=== PATIENT | female | born 1930 ===

== ENCOUNTER 2016-09-04 16:43 | Observation (INO) | payer MEDICARE, MEDICAID ==
[2016-09-04 16:44] VITALS: BMI 22.4
--- NOTE | 2016-09-04 16:49 | C.PDOC ---
History Of Present Illness Patient is a 85 y/o female that presents to the ED for evaluation of swelling to bilateral legs that began today. Patient states her lower extremities felt heavy, and were swollen upon waking up from a nap around 13:00 today. Patient also reports feeling lightheaded when looking down. Also reports an episode of sharp chest pain that lasted for few seconds, which resolved spontaneously. Otherwise, denies any shortness of breath, cough, fever, chills, or any other associated symptoms at this time. Time Seen by Provider: 09/04/16 16:45 Chief Complaint (Nursing): Lower Extremity Problem/Injury History Per: Patient History/Exam Limitations: no limitations Onset/Duration Of Symptoms: Hrs Current Symptoms Are (Timing): Still Present Recent travel outside of the [place]: No Additional History Per: Patient Past Medical History Reviewed: Historical Data, Nursing Documentation, Vital Signs Vital Signs: Last Vital Signs Temp 98.1 F 09/05/16 23:23 Pulse 61 09/05/16 23:23 Resp 20 09/05/16 23:23 BP 130/63 09/05/16 23:23 Pulse Ox 94 L 09/05/16 23:23 - Medical History PMH: Arthritis, Asthma, CHF, Deep Vein Thrombosis (rt leg), HTN, Hypercholesterolemia, Osteoporosis Denies: Chronic Kidney Disease Surgical History: Appendectomy, Cholecystectomy - [facility] Procedures OCCUPATIONAL THERAPY (12/19/13) PHYSICAL THERAPY NEC (12/19/13) RECREATIONAL THERAPY (12/19/13) Family History: States: Unknown Family Hx - Social History Hx Tobacco Use: No Hx Alcohol Use: No Hx Substance Use: No - Immunization History Hx Tetanus Toxoid Vaccination: No Hx Influenza Vaccination: No Hx Pneumococcal Vaccination: No Review Of Systems Except As Marked, All Systems Reviewed And Found Negative. Constitutional: Negative for: Fever, Chills Cardiovascular: Negative for: Chest Pain, Palpitations Respiratory: Negative for: Cough, Shortness of Breath Gastrointestinal: Negative for: Nausea, Vomiting, Abdominal Pain Skin: Positive for: Other (lower extremity swelling ). Negative for: Rash Neurological: Negative for: Weakness, Numbness, Headache, Dizziness Physical Exam - Physical Exam Appears: Non-toxic, No Acute Distress Skin: Normal Color, Warm, Dry Head: Atraumatic, Normacephalic Eye(s): bilateral: Normal Inspection, EOMI Neck: Normal ROM, Supple Chest: Symmetrical, No Tenderness Cardiovascular: Rhythm Regular, No Murmur Respiratory: Normal Breath Sounds, No Accessory Muscle Use, No Rales, No Rhonchi , No Wheezing Gastrointestinal/Abdominal: Soft, No Tenderness Extremity: Normal ROM, Pedal Edema (2+ pitting edema up to cain bilaterally), No Deformity Pulses: Left Dorsalis Pedis: Normal, Right Dorsalis Pedis: Normal Neurological/Psych: Oriented x3, Normal Speech, Normal Cognition, Normal Motor, Normal Sensation, Other (no focal deficits) ED Course And Treatment - Laboratory Results Result Diagrams: 09/04/16 17:12 09/04/16 17:12 ECG: Interpreted By Me, Viewed By Me ECG Rhythm: Sinus Rhythm, L BBB ECG Interpretation: No Acute Changes Interpretation Of ECG: No STEMI Rate From EC (bpm) O2 Sat by Pulse Oximetry: 100 (on RA) Pulse Ox Interpretation: Normal Progress Note: EKG, CXR, blood work, urinalysis ordered and reviewed. Pt was given Aspirin in the ER. Disposition - Disposition Disposition: HOSPITALIZED Disposition Time: 19:13 Condition: STABLE - Clinical Impression Clinical Impression: CHF exacerbation - Scribe Statement The provider has reviewed the documentation as recorded by the Scribe Román Kwan All medical record entries made by the Shankaribmary were at my direction and personally dictated by me. I have reviewed the chart and agree that the record accurately reflects my personal performance of the history, physical exam, medical decision making, and the department course for this patient. I have also personally directed, reviewed, and agree with the discharge instructions and disposition.
[2016-09-04 17:15] LABS: BASO % 0.7 % (0.0-2.0); EOS # 0.2 K/uL (0.0-0.7); EOS % 3.6 % (0.0-4.0); LYMPH # 1.3 K/uL (1.0-4.3); LYMPH % 31.6 % (20.0-40.0); MEAN CORPUSCULAR HEMOGLOBIN 30.7 pg (27.0-31.0); MEAN CORPUSCULAR HGB CONC 32.5 g/dL (33.0-37.0); MEAN PLATELET VOLUME 8.8 fL (7.2-11.7); MONO # 0.5 K/uL (0.0-0.8); MONO % 11.7 % (0.0-10.0); NEUT # 2.2 K/uL (1.8-7.0); NEUT % 52.4 % (50.0-75.0); RBC 4.24 Mil/uL (3.80-5.20); RED CELL DISTRIBUTION WIDTH 13.2 % (11.5-14.5); WHITE BLOOD COUNT 4.2 K/uL (4.8-10.8)
[2016-09-04 17:21] LABS: MEAN CELL VOLUME 94.3 fL (81.0-99.0)
[2016-09-04 17:26] LABS: ALBUMIN 3.8 g/dL (3.5-5.0)
[2016-09-04 17:29] LABS: ALB/GLOB RATIO 1.4 (1.0-2.1); AST/SGOT 31 U/L (14-36); GFR AFRICAN-AMERICAN 43; GFR NON-AFRICAN AMERICAN 36
[2016-09-04 17:30] LABS: ALT/SGPT 42 U/L (9-52); BLOOD UREA NITROGEN 36 mg/dL (7-17); CALCIUM 10.8 mg/dl (8.6-10.4)
[2016-09-04 17:39] LABS: B-TYPE NATRIURETIC PEPTIDE 3350 pg/mL (0-900)
[2016-09-04 19:21] LABS: SQUAMOUS EPITHIAL 1 /hpf (0-5); URINE BILIRUBIN NEGATIVE (NEGATIVE); URINE BLOOD NEGATIVE (NEGATIVE); URINE CLARITY Clear (Clear); URINE COLOR Straw (YELLOW); URINE GLUCOSE (UA) NORMAL (Normal); URINE LEUKOCYTE ESTERASE NEG Leu/uL (Negative); URINE NITRATE NEGATIVE (NEGATIVE); URINE PROTEIN NEGATIVE (NEGATIVE); URINE UROBILINOGEN NORMAL mg/dL (0.2-1.0)
[2016-09-05 02:48] LABS: CK-MB 1.21 ng/mL (0.0-3.38)
--- NOTE | 2016-09-05 08:39 | RAD ---
HISTORY: Lower extremity swelling COMPARISON: 02/09/2016 FINDINGS: LUNGS: Mild venous congestion. Right hilar prominence. Patchy increased markings at the left mid to lower lung zone. Biapical pleural thickening with upper lobe granulomatous changes. PLEURA: As above. CARDIOVASCULAR: Cardiomegaly. Calcification at the aortic knob. OSSEOUS STRUCTURES: Degenerative changes in the spine and shoulders. VISUALIZED UPPER ABDOMEN: Normal. OTHER FINDINGS: None. IMPRESSION: Mild venous congestion. Right hilar prominence. Patchy increased markings at the left mid to lower lung zone. Biapical pleural thickening with upper lobe granulomatous changes.
[2016-09-05 11:57] LABS: CK-MB 1.5 ng/mL (0.0-3.38)
[2016-09-05 17:29] LABS: CK-MB 1.59 ng/mL (0.0-3.38)
[2016-09-05 23:26] VITALS: RESP 20
[2016-09-06 08:54] LABS: CALCIUM 10.7 mg/dl (8.6-10.4)
--- NOTE | 2016-09-06 11:40 | VASCLAB ---
PROCEDURE: Lower Extremity Venous Duplex Exam. HISTORY: leg swelling and calf pain PRIORS: None. TECHNIQUE: Bilateral common femoral, femoral, popliteal and posterior tibial, peroneal and great saphenous veins were evaluated. Flow was assessed with color Doppler, compressibility, assessment of phasic flow and augmentation response. Report prepared by Renaldo Morillo, DOREEN, RVT FINDINGS: RIGHT: 1. Common Femoral Vein: 1.1. Compressibility - Fully compressible: Thrombus - None : Flow - Phasic: Augmentation -Normal: Reflux - None. 2. Femoral Vein: 2.1. Compressibility - Fully compressible: Thrombus - None : Flow - Phasic: Augmentation -Normal: Reflux - None. 3. Popliteal Vein: 3.1. Compressibility - Fully compressible: Thrombus - None : Flow - Phasic: Augmentation -Normal: Reflux - None. 4. Posterior Tibial Vein: 4.1. Compressibility - Fully compressible: Thrombus - None: Flow - Phasic: Augmentation -Normal: Reflux - None. 5. Peroneal Vein: 5.1. Compressibility - Fully compressible: Thrombus - None: Flow - Phasic: Augmentation -Normal: Reflux - None. 6. Great Saphenous Vein: 6.1. Compressibility - Fully compressible: Thrombus - None: Flow - Phasic: Augmentation - Normal: Reflux - None. LEFT: 1. Common Femoral Vein: 1.1. Compressibility - Fully compressible: Thrombus - None: Flow - Phasic: Augmentation -Normal: Reflux - None. 2. Femoral Vein: 2.1. Compressibility - Fully compressible: Thrombus - None: Flow - Phasic: Augmentation -Normal: Reflux - None. 3. Popliteal Vein: 3.1. Compressibility - Fully compressible: Thrombus - None : Flow - Phasic: Augmentation -Normal: Reflux - None. 4. Posterior Tibial Vein: 4.1. Compressibility - Fully compressible: Thrombus - None: Flow - Phasic: Augmentation -Normal: Reflux - None. 5. Peroneal Vein: 5.1. Compressibility - Fully compressible: Thrombus - None: Flow - Phasic: Augmentation -Normal: Reflux - None. 6. Great Saphenous Vein: 6.1. Compressibility - Fully compressible: Thrombus - None: Flow - Phasic: Augmentation - Normal: Reflux - None. OTHER FINDINGS: Right: Intima wall thickening noted in the right superficial femoral and popliteal veins.. Left: None significant. IMPRESSION: Right: No evidence of deep or superficial vein thrombosis of the right lower extremity. Normal valve function noted of the right side. Left: No evidence of deep or superficial vein thrombosis of the left lower extremity. Normal valve function noted of the left side.
--- NOTE | 2016-09-06 12:59 | CP.PCM.HP ---
History of Present Illness - History of Present Illness History of Present Illness: 85 years female with H/O of multiple medical problems , presented to ER wit symptoms of bilateral lower Ext. swelling and uncontrolled HTN. Review of Systems - Constitutional Constitutional: Fatigue, Weakness - Cardiovascular Cardiovascular: Dyspnea on Exertion, Edema, Leg Edema - Respiratory Respiratory: Dyspnea Past Patient History - Infectious Disease Hx of Infectious Diseases: None - Tetanus Immunizations Tetanus Immunization: Unknown - Past Medical History & Family History Past Medical History?: Yes - Past Social History Smoking Status: Never Smoked - CARDIAC Hx Congestive Heart Failure: Yes Hx Hypercholesterolemia: Yes Hx Hypertension: Yes - PULMONARY Hx Asthma: Yes - NEUROLOGICAL Hx Neurological Disorder: No Hx Syncope: Yes - HEENT Hx HEENT Problems: Yes Other/Comment: +eyeglasses - RENAL Hx Chronic Kidney Disease: No - ENDOCRINE/METABOLIC Hx Endocrine Disorders: No - HEMATOLOGICAL/ONCOLOGICAL Hx Blood Disorders: No Other/Comment: DVT right leg - INTEGUMENTARY Hx Dermatological Problems: No - MUSCULOSKELETAL/RHEUMATOLOGICAL Hx Arthritis: Yes - GASTROINTESTINAL Hx Gastrointestinal Disorders: No - GENITOURINARY/GYNECOLOGICAL Hx Genitourinary Disorders: No Hx Incontinence: Yes - PSYCHIATRIC Hx Substance Use: No - SURGICAL HISTORY Hx Appendectomy: Yes Hx Cholecystectomy: Yes - ANESTHESIA Hx Anesthesia: Yes Hx Anesthesia Reactions: No Meds Allergies/Adverse Reactions: Allergies Allergy/AdvReac Type Severity Reaction Status Date / Time No Known Allergies Allergy Verified 05/15/15 10:31 Physical Exam - Constitutional Appears: Non-toxic - Head Exam Head Exam: ATRAUMATIC, NORMOCEPHALIC - Eye Exam Eye Exam: EOMI, PERRL Pupil Exam: PERRL - ENT Exam ENT Exam: Mucous Membranes Moist - Respiratory Exam Respiratory Exam: Clear to Auscultation Bilateral, NORMAL BREATHING PATTERN - Cardiovascular Exam Cardiovascular Exam: REGULAR RHYTHM - GI/Abdominal Exam GI & Abdominal Exam: Normal Bowel Sounds - Extremities Exam Extremities exam: Positive for: full ROM, pedal edema - Neurological Exam Neurological exam: Alert Results - Vital Signs Recent Vital Signs: Last Vital Signs Temp 97.4 F L 09/06/16 09:48 Pulse 65 09/06/16 10:45 Resp 20 09/06/16 09:48 BP 143/74 09/06/16 09:49 Pulse Ox 95 09/06/16 09:48 - Labs Result Diagrams: 09/04/16 17:12 09/06/16 08:08 Labs: Laboratory Results - last 24 hr 09/05/16 09/06/16 16:48 08:08 Sodium 138 Potassium 3.6 Chloride 100 Carbon Dioxide 30 Anion Gap 11 BUN 40 H Creatinine 1.4 H Est GFR ( Amer) 43 Est GFR (Non-Af Amer) 36 Random Glucose 110 H Calcium 10.7 H Total Creatine Kinase 82 CK-MB (Mass) 1.59 Troponin I, Quant 0.0250 Assessment & Plan - Assessment and Plan (Free Text) Assessment: Pulmonary hypertension with Rt. sided heart failure. Uncontrolled systemic HTN Osteoarthritis. Plan: Lasix. Antihypertensive medications. Continue home medications. - Date & Time Date: 09/05/16 Time: 10:00
--- NOTE | 2016-09-06 14:47 | CP.PCM.PN ---
Subjective - Date & Time of Evaluation Date of Evaluation: 09/06/16 Time of Evaluation: 14:00 - Subjective Subjective: Pt seen today, states feels better, denies any sob, chest pain , palpitation, dizziness, N/V/D LE swelling improved No overnight events reported by RN Objective - Vital Signs/Intake and Output Vital Signs (last 24 hours): Temp Pulse Resp BP Pulse Ox 97.4 F L 65 20 143/74 95 09/06/16 09:48 09/06/16 10:45 09/06/16 09:48 09/06/16 09:49 09/06/16 09:48 Intake and Output: 09/06/16 09/06/16 06:59 18:59 Intake Total 500 Balance 500 - Medications Medications: Current Medications Aspirin (Aspirin Chewable) 81 mg PO DAILY [facility] Last Admin: 09/06/16 09:49 Dose: 81 mg Bisoprolol Fumarate (Zebeta) 5 mg PO DAILY [facility] Last Admin: 09/06/16 09:49 Dose: 5 mg Escitalopram Oxalate (Lexapro) 10 mg PO DAILY [facility] Last Admin: 09/06/16 09:49 Dose: 10 mg Famotidine (Pepcid) 20 mg PO DAILY [facility] Last Admin: 09/06/16 09:49 Dose: 20 mg Ferrous Sulfate (Feosol) 325 mg PO BID [facility] Last Admin: 09/06/16 09:49 Dose: 325 mg Furosemide (Lasix) 40 mg IVP DAILY [facility] Last Admin: 09/06/16 09:49 Dose: 40 mg Heparin Sodium (Porcine) (Heparin) 5,000 units SC Q12 [facility] Last Admin: 09/06/16 09:49 Dose: 5,000 units Hydralazine HCl (Apresoline) 25 mg PO Q8 [facility] Last Admin: 09/06/16 13:07 Dose: 25 mg Levetiracetam (Keppra) 500 mg PO BID [facility] Last Admin: 09/06/16 09:49 Dose: 500 mg Losartan Potassium (Cozaar) 25 mg PO DAILY [facility] Last Admin: 09/06/16 09:49 Dose: 25 mg Oxybutynin Chloride (Ditropan Tab) 5 mg PO BID [facility] Last Admin: 09/06/16 09:49 Dose: 5 mg Rosuvastatin Calcium (Crestor) 10 mg PO HS [facility] Last Admin: 09/05/16 21:35 Dose: 10 mg - Labs Labs: 09/06/16 08:08 - Constitutional Appears: Well, No Acute Distress - Respiratory Exam Respiratory Exam: Clear to Ausculation Bilateral, NORMAL BREATHING PATTERN - Cardiovascular Exam Cardiovascular Exam: REGULAR RHYTHM, +S1, +S2 - Extremities Exam Extremities Exam: Full ROM, Pedal Edema - Neurological Exam Neurological Exam: Alert, Awake, Oriented x3 Assessment and Plan - Assessment and Plan (Free Text) Assessment: A/P 85 yr old female admitted for LE swelling and sob DUPLEX LE - negative for DVT LE edema improved after lasix seen by Dr. Medeiros and cleared for discharge home today
[2016-09-06 17:25] VITALS: BP 107/57; PULSE 80; TEMP 97.9; O2SAT 94
--- NOTE | 2016-09-07 08:46 | PCM.HF ---
Heart Failure Core Measure - Heart Failure Ejection Fraction: 40 % or Greater WAYNE Inhibitor Prescribed: Yes Beta-Shiloh Prescribed: Bisoprolol Angiotensin II Receptor Shiloh Prescribed: No Contraindication/Reason for not providing: ef>45 Contraindication/Reason for not providing: no hx of afib Aldosterone Antagonist Prescribed: No Contraindication/Reason for not providing: ef>45 Hydralazine Nitrate Prescribed: Yes Implantable Cardioverter Defibrillator Therapy: No Contraindication/Reason for not providing: ef>45 Cardiac Resynchronization Therapy Prescribed: No Contraindication/Reason for not providing: ef>45 - Follow up Will be discharged to: Home Follow Up Date (must be within 7 days from discharge): 09/09/16 Follow Up Time: 09:00
--- NOTE | 2016-09-07 11:11 | CARD ---
APPROVED REPORT EKG Measurement Heart [id number] FL [id number] [id number] <Conclusion> Normal sinus rhythm Left bundle branch block Abnormal ECG
== END 2016-09-06 17:33 | disposition home or self-care (01) ==
LOC: C.ER 16:43 → C.9E 19:13 → C.5T 09-05 10:26
PROVIDERS: ADMIT Internal Medicine; ATTEND Internal Medicine
DX: I11.0 Hypertensive heart disease with heart failure (principal); I50.9 Heart failure, unspecified; E78.00 Pure hypercholesterolemia, unspecified; J45.909 Unspecified asthma, uncomplicated
CPT/HCPCS: 36415; 71010; 80048; 80053; 81001; 83880; 84484; 85025; 93970; 96374; 97162; 97530; 99285; G0378; G8978; G8979; J0360; J1644; J1940

== ENCOUNTER 2016-09-14 14:34 | Inpatient (IN) | payer MEDICARE, OTHER ==
[2016-09-14 14:46] VITALS: BMI 27.5
--- NOTE | 2016-09-14 15:01 | C.PDOC ---
History Of Present Illness <Eneida Ferris - Last Filed: 09/14/16 18:55> <AmarjitSara vargastamy - Last Filed: 09/14/16 21:17> LIMITED DUE TO DEMENTIA 85-year-old Luz VELA PRESENTS TO THE EMERGENCY DEPARTMENT WITH COMPLAINTS OF AMS @ 1330. BRASS POLISHER STATES PT DIFFICULT TO AROUSE. NOW @ BASELINE MS. PT W NO COMPLAINTS NARD NONTOXIC LUNGS NEG ABD NEG ATRAUM NO EDEMA WARM DRY (BarringtonEneida) History/Exam Limitations: clinical condition (AMS) <Eneida Ferris - Last Filed: 09/14/16 18:55> <ChantelSaratamy - Last Filed: 09/14/16 21:17> Time Seen by Provider: 09/14/16 14:58 Chief Complaint (Nursing): Medical Clearance Past Medical History Reviewed: Historical Data, Nursing Documentation, Vital Signs - Medical History PMH: Arthritis, Asthma, CHF, Deep Vein Thrombosis (rt leg), HTN, Hypercholesterolemia, Hyperlipidemia, Osteoporosis, Chronic Kidney Disease, Seizures Surgical History: Appendectomy, Cholecystectomy Family History: States: No Known Family Hx - Social History Hx Tobacco Use: No Hx Alcohol Use: No Hx Substance Use: No - Immunization History Hx Tetanus Toxoid Vaccination: No Hx Influenza Vaccination: No Hx Pneumococcal Vaccination: No <Eneida Ferris - Last Filed: 09/14/16 18:55> Review Of Systems Review Of Systems: ROS cannot be obtained secondary to pt's inabilty to answer questions. <Eneida Ferris - Last Filed: 09/14/16 18:55> Physical Exam - Physical Exam Appears: Non-toxic, No Acute Distress Head: Atraumatic, Normacephalic Eye(s): bilateral: Normal Inspection, PERRL Nose: Normal Oral Mucosa: Moist Lips: Normal Appearing Neck: Normal ROM Cardiovascular: Rhythm Regular, No Murmur Respiratory: Normal Breath Sounds, No Accessory Muscle Use Extremity: Normal ROM <Eneida Ferris - Last Filed: 09/14/16 18:55> ED Course And Treatment - Laboratory Results Result Diagrams: 09/14/16 16:50 09/14/16 16:50 O2 Sat by Pulse Oximetry: 99 <Eneida Ferris - Last Filed: 09/14/16 18:55> - Laboratory Results Result Diagrams: 09/14/16 16:50 09/14/16 16:50 Pulse Ox Interpretation: Normal <Sara Goldentamy - Last Filed: 09/14/16 21:17> Progress - Data Reviewed Data Reviewed: Lab, Diagnostic imaging, EKG, Old records <Eneida eFrris - Last Filed: 09/14/16 18:55> ED OBSERVATION Date of observation admission: 09/14/16 Time of observation admission: 14:45 <Eneida Ferris - Last Filed: 09/14/16 18:55> <ChantelSaratamy - Last Filed: 09/14/16 21:17> - Observation admission statement Patient is being placed in observation because:: AMS (Eneida Ferris) - Goals of Observation Goals of observation are:: NO ACUTE FINDINGS (Eneida Ferris) - Progress Note Progress Note: 09/14/16 17:00 exam unch. ua, ct pending 09/14/16 18:38 FAMILY @ BEDSIDE. STATES W NEW ONSET DELUSIONS, CONFUSION SINCE THIS AFTERNOON. NO FEVER. EXAM UNCH PRIOR, APPEARS COMFORTABLE. VSS PENDING CALLBACK PMD 09/14/16 18:55 PENDING CALLBACK PMD S/O DR Agatha GOLDEN FU PMD, DISPO (Eneida Ferris) Disposition Counseled Patient/Family Regarding: Studies Performed, Diagnosis - Disposition Disposition Time: 18:39 - POA Present On Arrival: None <Eneida Ferris - Last Filed: 09/14/16 18:55> Discussed With DrCampbell: Grisel Medeiros Comment: accepted the pt on his service and took over the care at 9:16 PM Doctor Will See Patient In The: Hospital Counseled Patient/Family Regarding: Studies Performed, Diagnosis - POA Present On Arrival: None <Beto Golden - Last Filed: 09/14/16 21:17> - Disposition Disposition: HOSPITALIZED Condition: FAIR - Clinical Impression Clinical Impression: Altered mental status, Dehydration - Scribe Statement The provider has reviewed the documentation as recorded by the Scribe (ABEBA HURT) <Eneida Ferris - Last Filed: 09/14/16 18:55> <Beto Golden - Last Filed: 09/14/16 21:17> - Scribe Statement All medical record entries made by the Scribe were at my direction and personally dictated by me. I have reviewed the chart and agree that the record accurately reflects my personal performance of the history, physical exam, medical decision making, and the department course for this patient. I have also personally directed, reviewed, and agree with the discharge instructions and disposition. (Eneida Ferris) Decision To Admit - Pt Status Changed To: Hospital Disposition Of: Inpatient - Admit Certification Admit to Inpatient:: After my assessment, the patient will require hospitalization for at least two midnights. This is because of the severity of symptoms shown, intensity of services needed, and/or the medical risk in this patient being treated as an outpatient. - InPatient: Physician Admission Certification: I certify that this patient requires 2 or more midnights of care for the following reason:: SEE NOTE - . Bed Request Type: Regular <Eneida Ferris - Last Filed: 09/14/16 18:55> <Beto Golden - Last Filed: 09/14/16 21:17> - . Patient Diagnosis: Altered mental status
--- NOTE | 2016-09-14 16:09 | RAD ---
PROCEDURE: CHEST RADIOGRAPH, 1 VIEW HISTORY: picc line placement COMPARISON: 09/04/2016. FINDINGS: PICC line is not visualized. LUNGS: The lungs are clear. PLEURA: No pneumothorax or pleural fluid seen. CARDIOVASCULAR: The heart is normal in size. Atherosclerotic aortic arch calcifications are present. . OSSEOUS STRUCTURES: No significant abnormalities. VISUALIZED UPPER ABDOMEN: Normal. OTHER FINDINGS: There is chronic elevation of the right hemidiaphragm. IMPRESSION: PICC line is not visualized. No active pulmonary disease.
[2016-09-14 16:55] LABS: EOS # 0.1 K/uL (0.0-0.7); EOS % 2.1 % (0.0-4.0); LYMPH # 1.6 K/uL (1.0-4.3); LYMPH % 35.9 % (20.0-40.0); MEAN CELL VOLUME 94.3 fL (81.0-99.0); MEAN CORPUSCULAR HGB CONC 32.8 g/dL (33.0-37.0); MEAN PLATELET VOLUME 9.1 fL (7.2-11.7); MONO # 0.4 K/uL (0.0-0.8); MONO % 10.1 % (0.0-10.0); NRBC % 0.1 % (0.0-2.0); RED CELL DISTRIBUTION WIDTH 12.7 % (11.5-14.5); WHITE BLOOD COUNT 4.4 K/uL (4.8-10.8)
[2016-09-14 17:05] LABS: CHLORIDE 98 mmol/L (98-107); POTASSIUM 4.6 mmol/L (3.6-5.2); SODIUM 137 mmol/L (132-148)
[2016-09-14 17:07] LABS: GFR AFRICAN-AMERICAN 47
[2016-09-14 17:08] LABS: ALB/GLOB RATIO 1.3 (1.0-2.1); ALKALINE PHOSPHATASE 85 U/L (38-126); ALT/SGPT 44 U/L (9-52); AST/SGOT 39 U/L (14-36); BILIRUBIN,TOTAL 0.7 mg/dL (0.2-1.3); BLOOD UREA NITROGEN 50 mg/dL (7-17); CARBON DIOXIDE 25 mmol/L (22-30); GLUCOSE,RANDOM 71 mg/dL (65-105); TOTAL PROTEIN 6.5 g/dL (6.3-8.3)
[2016-09-14 17:09] LABS: CALCIUM 10.4 mg/dl (8.6-10.4)
--- NOTE | 2016-09-14 17:36 | CT ---
PROCEDURE: CT HEAD WITHOUT CONTRAST. HISTORY: AMS COMPARISON: Noncontrast MRI brain performed 02/10/16 ; noncontrast head CT performed 02/09/16 TECHNIQUE: Axial computed tomography images were obtained through the head/brain without intravenous contrast. Radiation dose: Total exam DLP = 711.28 mGy-cm. This CT exam was performed using one or more of the following dose reduction techniques: Automated exposure control, adjustment of the mA and/or kV according to patient size, and/or use of iterative reconstruction technique. FINDINGS: HEMORRHAGE: No intracranial hemorrhage. BRAIN: Diffuse atrophy with prominence of the ventricles and sulci noted. No mass effect or edema. Dense atherosclerotic intracranial calcifications. Moderate scattered periventricular and subcortical white matter hypodensities, which are nonspecific, but often seen with chronic microvascular ischemic disease. Bilateral chronic appearing lacunar infarcts measuring up to 8 mm on the left. Please note that MRI with diffusion imaging is more sensitive in the detection of acute ischemic event. VENTRICLES: No hydrocephalus. CALVARIUM: Unremarkable. PARANASAL SINUSES: Unremarkable as visualized. No significant inflammatory changes. MASTOID AIR CELLS: Unremarkable as visualized. No inflammatory changes. OTHER FINDINGS: None. IMPRESSION: Generalized atrophy. Moderate nonspecific white matter changes. Bilateral chronic appearing lacunar infarcts measuring up to 8 mm on the left.
[2016-09-14 18:13] LABS: URINE BILIRUBIN NEGATIVE (NEGATIVE); URINE BLOOD NEGATIVE (NEGATIVE); URINE COLOR Yellow (YELLOW); URINE GLUCOSE (UA) NORMAL (Normal); URINE KETONE NEGATIVE (NEGATIVE); URINE LEUKOCYTE ESTERASE NEG Leu/uL (Negative); URINE PROTEIN NEGATIVE (NEGATIVE); URINE UROBILINOGEN NORMAL mg/dL (0.2-1.0); WBC URINE 1 /hpf (0-5)
--- NOTE | 2016-09-15 14:41 | CARD ---
APPROVED REPORT EKG Measurement Heart [id number] HI [id number] <Conclusion> Sinus bradycardia Possible Left atrial enlargement Left bundle branch block Abnormal ECG
[2016-09-15] MEDS: Dextrose 5%/0.45% NS 1,000 ML IV SCH (17:30)
[2016-09-16 14:04] LABS: BASO % 0.8 % (0.0-2.0); EOS # 0.1 K/uL (0.0-0.7); HEMATOCRIT 43.2 % (34.0-47.0); LYMPH # 1.2 K/uL (1.0-4.3); LYMPH % 37.9 % (20.0-40.0); MEAN CELL VOLUME 94.4 fL (81.0-99.0); MEAN CORPUSCULAR HEMOGLOBIN 30.7 pg (27.0-31.0); MEAN CORPUSCULAR HGB CONC 32.6 g/dL (33.0-37.0); MEAN PLATELET VOLUME 9.1 fL (7.2-11.7); MONO # 0.3 K/uL (0.0-0.8); MONO % 9.9 % (0.0-10.0); RED CELL DISTRIBUTION WIDTH 12.3 % (11.5-14.5); WHITE BLOOD COUNT 3.3 K/uL (4.8-10.8)
[2016-09-16 14:11] LABS: POTASSIUM 4.4 mmol/L (3.6-5.2)
[2016-09-16 14:14] LABS: CALCIUM 9.8 mg/dl (8.6-10.4)
[2016-09-16] MEDS: Dextrose 5%/0.45% NS 1,000 ML IV SCH (15:04)
--- NOTE | 2016-09-16 18:36 | CP.PCM.CON ---
History of Present Illness - History of Present Illness History of Present Illness: CONSULT DICTATED NEW WITNESSED LOC POSSIBLE POST ICTAL NEEDS WORK UP PER ORDER CONTINUE KEPPRA 500 MG BID Past Patient History - Infectious Disease Hx of Infectious Diseases: None - Tetanus Immunizations Tetanus Immunization: Unknown - Past Medical History & Family History Past Medical History?: Yes - Past Social History Smoking Status: Never Smoked - CARDIAC Hx Cardiac Disorders: Yes Hx Congestive Heart Failure: Yes Hx Hypertension: Yes - PULMONARY Hx Respiratory Disorders: Yes Hx Asthma: Yes - NEUROLOGICAL Hx Neurological Disorder: Yes Hx Seizures: Yes - HEENT Hx HEENT Problems: Yes Other/Comment: +eyeglasses - RENAL Hx Chronic Kidney Disease: Yes - ENDOCRINE/METABOLIC Hx Endocrine Disorders: No - HEMATOLOGICAL/ONCOLOGICAL Hx Blood Disorders: Yes Other/Comment: DVT right leg - INTEGUMENTARY Hx Dermatological Problems: No - MUSCULOSKELETAL/RHEUMATOLOGICAL Hx Arthritis: Yes - GASTROINTESTINAL Hx Gastrointestinal Disorders: No - GENITOURINARY/GYNECOLOGICAL Hx Genitourinary Disorders: Yes Hx Incontinence: Yes - PSYCHIATRIC Hx Psychophysiologic Disorder: No Hx Substance Use: No - SURGICAL HISTORY Hx Surgeries: Yes Hx Appendectomy: Yes Hx Cholecystectomy: Yes - ANESTHESIA Hx Anesthesia: Yes Hx Anesthesia Reactions: No Hx Malignant Hyperthermia: No Has any member of the family had a problem w/ anesthesia?: No Meds Allergies/Adverse Reactions: Allergies Allergy/AdvReac Type Severity Reaction Status Date / Time No Known Allergies Allergy Verified 09/14/16 14:46 - Medications Medications: Current Medications Aspirin (Aspirin Chewable) 81 mg PO DAILY PENDING SALE TO [facility] Last Admin: 09/16/16 10:25 Dose: 81 mg Bisoprolol Fumarate (Zebeta) 5 mg PO DAILY PENDING SALE TO [facility] Last Admin: 09/16/16 10:38 Dose: 5 mg Escitalopram Oxalate (Lexapro) 10 mg PO DAILY PENDING SALE TO [facility] Last Admin: 09/16/16 10:26 Dose: 10 mg Famotidine (Pepcid) 20 mg PO DAILY PENDING SALE TO [facility] Last Admin: 09/16/16 10:25 Dose: 20 mg Ferrous Sulfate (Feosol) 325 mg PO BID PENDING SALE TO [facility] Last Admin: 09/16/16 10:26 Dose: 325 mg Heparin Sodium (Porcine) (Heparin) 5,000 units SC Q12 PENDING SALE TO [facility] Last Admin: 09/16/16 10:26 Dose: 5,000 units Hydralazine HCl (Apresoline) 50 mg PO TID PENDING SALE TO [facility] Last Admin: 09/16/16 15:03 Dose: 50 mg Dextrose/Sodium Chloride (Dextrose 5%/0.45% Ns 1000 Ml) 1,000 mls @ 60 mls/hr IV .[id number] PENDING SALE TO [facility] Last Admin: 09/16/16 15:04 Dose: 60 mls/hr Levetiracetam (Keppra) 500 mg PO BID PENDING SALE TO [facility] Last Admin: 09/16/16 10:26 Dose: 500 mg Losartan Potassium (Cozaar) 25 mg PO DAILY PENDING SALE TO [facility] Last Admin: 09/16/16 10:25 Dose: 25 mg Results - Vital Signs Recent Vital Signs: Last Vital Signs Temp 97.5 F L 09/16/16 16:00 Pulse 58 L 09/16/16 16:00 Resp 20 09/16/16 16:00 BP 170/65 H 09/16/16 16:00 Pulse Ox 98 09/16/16 16:00 - Labs Result Diagrams: 09/16/16 13:58 09/16/16 13:58 Labs: Laboratory Results - last 24 hr 09/16/16 09/16/16 13:58 13:58 WBC 3.3 L RBC 4.58 Hgb 14.1 Hct 43.2 MCV 94.4 MCH 30.7 MCHC 32.6 L RDW 12.3 Plt Count 146 MPV 9.1 Neut % (Auto) 48.4 L Lymph % (Auto) 37.9 Hughes % (Auto) 9.9 Eos % (Auto) 3.0 Baso % (Auto) 0.8 Neut # 1.6 L Lymph # 1.2 Hughes # 0.3 Eos # 0.1 Baso # 0.0 Sodium 130 L Potassium 4.4 Chloride 94 L Carbon Dioxide 26 Anion Gap 14 BUN 32 H Creatinine 1.2 Est GFR ( Amer) 52 Est GFR (Non-Af Amer) 43 Random Glucose 139 H Calcium 9.8
--- NOTE | 2016-09-17 00:11 | PN ---
DATE: 09/16/2016 SUBJECTIVE: She is currently more awake. PHYSICAL EXAMINATION: VITAL SIGNS: Blood pressure 119/72, temperature 97.5, respiratory rate 20, and pulse 62. HEENT: Pupils are equal and reactive to light. Normal-appearing mucosa, conjunctivae, oropharynx, and nasal membrane mucosa. NECK: Supple. No JVD. No carotid bruit. No lymph node. No thyromegaly. CHEST AND LUNGS: Bilateral symmetrical expansion. Good air exchange. No rales. No rhonchi. CARDIOVASCULAR SYSTEM: PMI not localized. S1 and S2. No additional sounds. ABDOMEN: Normoactive bowel sounds. No tenderness. No organomegaly. No masses. EXTREMITIES: No cyanosis. No clubbing. No edema. CENTRAL NERVOUS SYSTEM: Alert, awake, and oriented x2 and the patient moves all extremities equally. ASSESSMENT AND PLAN: Acute change of mental status. Differential diagnosis include secondary to dehydration and prerenal azotemia versus postictal. PLAN: Neurology consult and continue neuro check, continue IV hydration, monitor electrolytes. Grisel Medeiros MD DEANN
[2016-09-17] MEDS: Dextrose 5%/0.45% NS 1,000 ML IV SCH ×2 (02:20→05:01)
[2016-09-17 07:53] LABS: FREE T4 1.21 ng/dL (0.78-2.19)
[2016-09-17 08:07] LABS: THYROID STIMULATING HORMONE 4.81 mIU/L (0.46-4.68)
--- NOTE | 2016-09-17 08:26 | PCM.RRTMUL ---
<ArmandoYasmeen allen - Last Filed: 09/17/16 08:15> SUPERVISOR [employer]ARDING Nurses Assessment - Situation SUPERVISOR BOARDING Responder Arrival Time:: 07:56 - Vital Signs Blood Pressure:: 154/66 Pulse Rate:: 60 Respiratory Rate:: 16 Temperature:: 98 F - A) Initial Vital Signs: Blood Pressure: 223/89 Pulse Rate: 63 Respiratory Rate: 15 Temperature: 98.1 F O2 Sat by Pulse Oximetry: 95 - B) Neurological Status (Select all that apply): Alert, Responsive, Oriented - C) Respiratory Oxygen Delivery Method: Room Air - Constitutional Appears: Non-toxic, No Acute Distress - Head Head Exam: ATRAUMATIC - Respiratory Exam Respiratory Exam: Clear to Ausculation Bilateral. absent: Accessory Muscle Use , Rales, Rhonchi, Wheezes, Respiratory Distress - Cardiovascular Exam Cardiovascular Exam: REGULAR RHYTHM, +S1, +S2 - GI/Abdominal Exam GI & Abdominal Exam: Soft, Normal Bowel Sounds. absent: Firm, Guarding, Rigid, Tenderness, Organomegaly - Neurological Exam Neurological Exam: Alert, Awake, Oriented x3 - Extremities Exam Extremities Exam: Pedal Edema. absent: Tenderness Plan - A. End of SUPERVISOR [employer]ARDING Vital Signs: Blood Pressure: 229/87 Pulse Rate: 65 Respiratory Rate: 15 Temperature: 98.1 F O2 Sat by Pulse Oximetry: 97 - B. Assessment of Findings&Treatment Plan Rapid Response is called on patient at 7:56 am for elevated blood pressure. Blood pressure at start of SUPERVISOR BOARDING was 221/76. Patient denied having any CP, SOB, abd pain, JIMENEZ, vision changes. Patient was resting comfortably during rapid response. On physical exam, heart was regular rhythm, No M/R/G. Lungs CTA B/ L. Abd soft NT/ND, no organomegaly. Neuro: CN II-XII intact, B/L upper and lower extremities movement and sensation intact and equal, PEERL. EKG done showed no significant changes from previous. Assessmnet and Plan 1. Hypertensive urgency: Patient will be given her morning blood pressure medications including Norvasc 5 mg po, hydralazine 50 mg po, cozaar 25 mg po, Zebeta 5 mg po qd. She will also be given aspirin 81 mg po. PMD will be notified. Blood pressure will be rechecked in about 1.5 hours after medications have been given. <Abiel Soriano P - Last Filed: 09/18/16 20:53> Attending/Attestation - Attestation I have personally seen and examined this patient.: Yes I have fully participated in the care of the patient.: Yes I have reviewed all pertinent clinical information, including history, physical exam and plan: Yes Notes (Text): Patient was asymptomatic, bit anxious with SUPERVISOR [employer]ARDING, in no distress, EKG done was LBBB, baseline, hospital course, meds, medical record reviewed, patient was given her scheduled htn meds early and continued to be observed, primary team notified.
[2016-09-17 08:49] LABS: FOLATE 9.2 ng/mL
--- NOTE | 2016-09-17 12:31 | MRI ---
PROCEDURE: MRI brain dated 09/17/2016 HISTORY: stroke COMPARISON: Comparison made with prior CT scan brain dated 09/14/2016. TECHNIQUE: Multiplanar, multisequence MR images of the brain were obtained without intravenous contrast enhancement. FINDINGS: HEMORRHAGE: No acute parenchymal, subarachnoid or extra-axial hemorrhage. No evidence of hemosiderin deposition identified on gradient echo weighted sequence. DWI: No evidence of an acute or early subacute infarction. BRAIN PARENCHYMA: Moderate diffuse/confluent chronic white matter ischemic changes are seen extending peripherally into the deep and subcortical white matter both cerebral hemispheres. Additionally, multiple more discrete chronic appearing lacunar type infarcts also seen scattered about the deep and subcortical white matter as well as both basal nuclei and brainstem. None of these changes exhibit restricted diffusion. Note also made of numerous dilated perivascular spaces within both basal nuclei ; such findings have been seen and described in cases of vascular dementia therefore clinical correlation recommended. There is a prominent elliptical shaped CSF space left medial temporal lobe which could represent dilated perivascular space or possibly a temporal horn diverticulum. Orbits and contents Moderate generalized volume loss. VENTRICLES: No evidence of obstructive hydrocephalus. CRANIUM: No acute calvarial abnormalities identified. ORBITS: Grossly unremarkable. . PARANASAL SINUSES/MASTOIDS: The minor mucosal thickening seen within the ethmoid air complex both VASCULAR SYSTEM: Visualized major vascular flow voids at skull base are patent. OTHER FINDINGS: None. IMPRESSION: No acute intracranial hemorrhage. Moderate chronic white matter and lesser basal nuclei as well as brainstem ischemic changes. Moderate generalized volume loss.
--- NOTE | 2016-09-17 16:05 | PN ---
DATE: 09/17/2016 SUBJECTIVE: The patient is more awake and alert. She is currently on IV fluid. PHYSICAL EXAMINATION: VITAL SIGNS: Blood pressure 202/78, temperature 98.1, respiratory rate 15, and pulse 65. HEENT: Pupils are equal and reactive to light. Normal-appearing mucosa, conjunctivae, oropharynx, and nasal membrane mucosa. NECK: Supple. No JVD. No carotid bruit. No lymph node. No thyromegaly. CHEST AND LUNGS: Bilateral symmetrical expansion. Good air exchange. No rales. No rhonchi. CARDIOVASCULAR SYSTEM: PMI not localized. S1 and S2. No additional sounds. ABDOMEN: Normoactive bowel sounds. No tenderness. No organomegaly. No masses. EXTREMITIES: No cyanosis. No clubbing. No edema. CENTRAL NERVOUS SYSTEM: Alert, awake, and oriented x2. No neurological deficits could be appreciated. ASSESSMENT: 1. Acute change of mental status. Differential diagnosis include postictal versus toxic metabolic encephalopathy secondary to prerenal azotemia. 2. Dehydration with prerenal azotemia. 3. Hypertension, uncontrolled. PLAN: We will adjust her blood pressure medications and change IV fluid to D5W. Grisel Medeiros MD
[2016-09-18] MEDS ORDERED: Nitroglycerin 2% Ointment Foilpak UD TOP STA (07:14)
--- NOTE | 2016-09-18 07:30 | PCM.RRTMUL ---
LICENSED FUNERAL DIRECTOR AND EMBALMER Nurses Assessment - Situation LICENSED FUNERAL DIRECTOR AND EMBALMER Responder Arrival Time:: 06:45 - Vital Signs Blood Pressure:: 198/66 Pulse Rate:: 71 I.Reason for LICENSED FUNERAL DIRECTOR AND EMBALMER - A) Acute Change in Patient: (Select all that apply): Staff member or family is worried about patient - A) Initial Vital Signs: Blood Pressure: 213/73 Pulse Rate: 91 Temperature: 98.3 F O2 Sat by Pulse Oximetry: 94 - B) Neurological Status (Select all that apply): Alert, Responsive, Oriented. absent: Confused - C) Respiratory Oxygen Delivery Method: Room Air - Constitutional Appears: Well, Non-toxic, No Acute Distress - Head Head Exam: ATRAUMATIC, NORMAL INSPECTION, NORMOCEPHALIC - Eyes Eye Exam: Normal appearance - Respiratory Exam Respiratory Exam: Clear to Ausculation Bilateral, NORMAL BREATHING PATTERN - Cardiovascular Exam Cardiovascular Exam: REGULAR RHYTHM, RRR. absent: Gallop, Rubs, Murmur - GI/Abdominal Exam GI & Abdominal Exam: Soft, Normal Bowel Sounds - Neurological Exam Neurological Exam: Alert, Awake - Extremities Exam Extremities Exam: Normal Inspection Plan - A. End of LICENSED FUNERAL DIRECTOR AND EMBALMER Vital Signs: Blood Pressure: 207/72 Pulse Rate: 70 Temperature: 98.3 F O2 Sat by Pulse Oximetry: 95 - B. Assessment of Findings&Treatment Plan LICENSED FUNERAL DIRECTOR AND EMBALMER called at 6:43 for BP 213/73. Nurse gave htn medications early at 6:30 : apresoline 50 mg, norvasc 5mg, losartan 75mg. Hydralazine 10 mg IVP was given with minimal decrease in BP. Nitroglycerin 2% topical was put on the patient. Patient was feeling well with no headache, shortness of breath, or chest pain.
--- NOTE | 2016-09-19 10:55 | HP ---
DATE: 09/15/2016 HISTORY OF PRESENT ILLNESS: This is an 85-year-old female with history of multiple medical problems, was brought to emergency room with symptoms of confusion and forgetfulness associated with generalized weakness. Also was found to be dehydrated with BUN of 50 and creatinine 1.3. Subsequently, the patient was admitted for further management. The patient currently lives by herself and she had previous multiple hospital admissions for different reasons during the past year. REVIEW OF SYSTEMS: All the review of system is negative. ALLERGY: No known allergy. HOME MEDICATION: Include Keppra 500 mg twice a day, hydralazine 25 mg three times a day, Crestor 10 mg daily, Ditropan 5 mg twice a day, losartan 25 mg daily, furosemide 20 mg daily, Pepcid 20 mg daily, Lexapro 10 mg daily, bisoprolol 5 mg daily, aspirin 81 mg. PAST MEDICAL HISTORY: Hypertension, depression/anxiety, seizure disorder. FAMILY HISTORY: Noncontributory. SOCIAL HISTORY: No history of smoking, EtOH, or substance abuse. PHYSICAL EXAMINATION GENERAL: The patient is in bed, comfortable at the time of this dictation. VITAL SIGNS: Blood pressure 190/75, temperature 97.8, respiratory rate 20, and pulse 61. HEENT: Pupils are equal and reactive to light, normal-appearing mucosa, the conjunctivae, oropharyngeal and nasal membrane mucosa. NECK: Supple. No JVD. No carotid bruit, no lymph node, no thyromegaly. CHEST AND LUNGS: Bilateral symmetrical expansion. Good air exchange, no rales, no rhonchi. . ABDOMEN: Normoactive bowel sounds. No tenderness, no organomegaly, no masses. EXTREMITIES: No cyanosis, no clubbing, no edema. NEURO: She is alert, awake, oriented x2. No neurological deficit could be appreciated. ASSESSMENT: 1. Severe dehydration with BUN of 50 and creatinine 1.3. 2. Confusion and change of mental status. 3. Hypertension. PLAN: We will consult neurology. Continue neuro check every 4 hours and resume patient's home medications. We will hold the Lasix and we will also hold the Ditropan as patient has severe mouth dryness. Grisel Medeiros MD [facility] # [id number] MTDD
--- NOTE | 2016-09-19 10:55 | CON ---
DATE: 09/16/2016 REASON FOR CONSULTATION: Syncopal attack. CHIEF COMPLAINT: The patient was brought in to [facility], [place] with history of episode of unconsciousness being witnessed by her homemaker. From neurological point of view, I was called in to evaluate her for further management. HISTORY OF PRESENT ILLNESS: The patient is a good-looking right-handed 85-year-old female, usual state of health. She claims that she woke up normal that day and she was sitting in the chair. Next thing, she realized she passed out; this was unwitnessed; when homemaker came into the house, she was in the chair with unconsciousness. Immediately, 911 was called, the patient was brought into [facility], [place]. No clear evidence of tonic-clonic activities at the scene. No bowel or bladder incontinence at the scene. . The patient is known to have seizures, been diagnosed in the past, taking Keppra in the past. PAST MEDICAL HISTORY: Hypertension, anemia, seizures. PERSONAL HISTORY: Denies smoking or alcohol use. ALLERGIES: NO KNOWN ALLERGIES. MEDICATIONS: Hydralazine, aspirin, losartan, Feosol, Keppra, Lexapro, Pepcid, and Zebeta. PHYSICAL EXAMINATION VITAL SIGNS: Blood pressure 170/65, mean arterial pressure of 100, respiratory rate 16, temperature afebrile. NECK: Supple. No carotid bruit. HEART: Sounds are regular. CHEST: Fair air entry. EXTREMITIES: No edema in legs. NEUROLOGICAL EXAMINATION: MENTAL STATUS EXAMINATION: She is awake, alert, oriented to person, place, and time. The patient is examined in the presence of folder hand nearby ar. CRANIAL NERVE EXAMINATION: Visual field intact. Pupil reactive to light. Extraocular movements are normal. No nystagmus. No facial sensory deficit. No facial asymmetry. Hearing is normal. Tongue is midline. Good grasp. MOTOR EXAMINATION: Outstretched hand with eyes closed. No drift noted. Power is symmetric on either side. DEEP TENDON REFLEXES: Biceps, brachioradialis, and triceps 2+. At both knees are absent and at both ankles are absent. Plantars are mute. SENSORY EXAMINATION: Grossly intact. Mild sensory motor neuropathy. CEREBELLAR: [id number] test is intact. GAIT: Deferred at this time because she was . CONCLUSION: Upon review of her history and neurological examination, unwitnessed loss of consciousness consistent with possible seizure knowing that she did have seizure history in the past. However, she needs a workup from cardiac point of view as well as from neuro point of view to rule out other possible causes for the same. WORKUP: CT of the head reviewed; showed left basal ganglia infarct. The patient also showed evidence of mild atrophy and small vessel disease noted. EKG, normal sinus rhythm. BLOOD WORKUP: WBC 3.3, hemoglobin 14.1, hematocrit 43.2, platelet 146. Sodium 139, potassium 4.4, chloride 94, bicarbonate 26, GFR 52, BUN 32, creatinine 12. Urinalysis is normal. RECOMMENDATIONS: 1. Continue the present management including Keppra 500 mg twice a day. No need for adjustment of dose at present. 2. Carotid Doppler, EEG and MRI of the brain to rule out any new ischemic process and other thrombogenesis for her stroke. The patient's condition has been well discussed with her. The patient will be followed closely with you. Kenny Casiano MD [id number]
--- NOTE | 2016-09-20 00:45 | PN ---
DATE: 09/19/2016 SUBJECTIVE: She had high blood pressure and BALLAST CLEANING MACHINE OPERATOR was called and patient was given IV hydralazine. PHYSICAL EXAMINATION: VITAL SIGNS: Currently, blood pressure is 152/60, temperature 98, respiratory rate 20, and pulse 75. HEENT: Pupils are equal and reactive to light. Normal-appearing mucosa, conjunctivae, oropharynx, and nasal membrane mucosa. NECK: Supple. No JVD. No carotid bruit. No lymph node. No thyromegaly. CHEST AND LUNGS: Bilateral symmetrical expansion. Good air exchange. No rales. No rhonchi. CARDIOVASCULAR SYSTEM: PMI not localized. S1 and S2. No additional sounds. ABDOMEN: Normoactive bowel sounds. No tenderness. No organomegaly. No masses. EXTREMITIES: No cyanosis. No clubbing. No edema. CENTRAL NERVOUS SYSTEM: Alert, awake, and oriented x2. No neurological deficits could be appreciated. ASSESSMENT: 1. Acute change of mental status. Differential diagnosis includes toxic metabolic encephalopathy secondary to prerenal azotemia versus postictal. 2. Uncontrolled hypertension. 3. Osteoarthritis. 4. Dementia. PLAN: Follow neurology recommendations and adjust blood pressure medications. Physical therapy and discharge to subacute rehabilitation. Grisel Medeiros MD
[2016-09-20 08:00] VITALS: RESP 20
--- NOTE | 2016-09-20 14:05 | VASCLAB ---
PROCEDURE: HISTORY: ASSESS STENOSIS COMPARISON: None available. TECHNIQUE: Grayscale and duplex Doppler evaluation of the cervical carotid and vertebral arteries were performed. The common carotid, carotid bifurcations and cervical Internal Carotid Artery (ICA) and proximal External Carotid Artery (ECA) were evaluated. The vertebral arteries were evaluated for gross patency and flow direction. Report prepared by Renaldo Morillo, BS, RVT FINDINGS: RIGHT CAROTID ARTERIES: 1. Common Carotid Artery: No significant focal plaque formation of the right common carotid artery. Maximum Peak Systolic velocity: 82 cm/sec: End-diastolic velocity 8 cm/sec. 2. Carotid Bifurcation: plaque formation. Maximum Peak Systolic velocity: 86 cm/sec: End-diastolic velocity 12 cm/sec. 3. Internal Carotid Artery: Plaque description: 3.1. Proximal Segment: Peak systolic velocity 96 cm/sec: End-diastolic velocity 15 cm/sec - % stenosis 0-15% 3.2. Middle Segment: Peak systolic velocity 77 cm/sec: End-diastolic velocity 14 cm/sec - % stenosis 0-15% 3.3. Distal Segment: Peak systolic velocity 96 cm/sec: End-diastolic velocity 15 cm/sec - % stenosis 0-15% 4. External Carotid Artery: No significant focal plaque formation. Peak systolic velocity 150 cm/sec 5. ICA/CCA Ratio: 1.2 LEFT CAROTID ARTERIES: 1. Common Carotid Artery: No significant focal plaque formation of the left common carotid artery. Maximum Peak Systolic velocity: 96 cm/sec: End-diastolic velocity 9 cm/sec. 2. Carotid Bifurcation: plaque formation. Maximum Peak Systolic velocity: 108 cm/sec: End-diastolic velocity 7 cm/sec. 3. Internal Carotid Artery: Plaque description: 3.1. Proximal Segment: Peak systolic velocity 123 cm/sec: End-diastolic velocity 17 cm/sec - % stenosis 0-15% 3.2. Middle Segment: Peak systolic velocity 131 cm/sec: End-diastolic velocity 19 cm/sec - % stenosis 0-15% 3.3. Distal Segment: Peak systolic velocity 80 cm/sec: End-diastolic velocity 11 cm/sec - % stenosis 0-15% 4. External Carotid Artery: No significant focal plaque formation. Peak systolic velocity 145 cm/sec 5. ICA/CCA Ratio: 1.4 VERTEBRAL ARTERIES: 1. Right Vertebral Artery: The right vertebral artery flow direction is antegrade. 2. Left Vertebral Artery: The left vertebral artery flow direction is antegrade. OTHER FINDINGS: 1. Right Brachial Blood pressure: 110 mmHg. 2. Left Brachial Blood pressure: 110 mmHg. IMPRESSION: RIGHT: Duplex scan does not suggest hemodynamically significant stenosis of the right extracranial carotid arteries. LEFT: Duplex scan does not suggest hemodynamically significant stenosis of the left extracranial carotid arteries.
--- NOTE | 2016-09-21 05:24 | PN ---
DATE: 09/20/2016 SUBJECTIVE: She is awake and alert, but unsteady and needs assistance during out of bed. PHYSICAL EXAMINATION VITAL SIGNS: Blood pressure 124/60, temperature 97.5, respiratory rate 20 and pulse 62. HEENT: Pupils equal and reactive to light. Normal-appearing mucosa of the conjunctivae, oropharyngeal, nasal mucosa. NECK: Supple. No JVD. No carotid bruit. No lymph nodes. No thyromegaly. CARDIOPULMONARY: PMI not localized. S1 and S2. No additional sounds. CHEST AND LUNGS: Bilateral symmetrical expansion. Good air exchange. No rales. No rhonchi. ABDOMEN: Normoactive bowel sounds. No tenderness. No organomegaly. No masses. EXTREMITIES: No cyanosis. No clubbing. No edema. CENTRAL NERVOUS SYSTEM: Alert, awake, and oriented x1. No neurological deficits could be appreciated except for dysfunctional gait. ASSESSMENT: 1. Acute change of mental status. Differential diagnosis, postictal versus metabolic encephalopathy. 2. Uncontrolled hypertension, which is currently controlled on current medications. 3. Dementia. 4. Osteoarthritis. PLAN: Continue current medications. Follow neurology recommendations. Discussed the patient's condition with the patient's son who arrived from [place] today for a short visit to his mother. The patient is awaiting cover of insurance to be transferred to subacute rehabilitation. Grisel Medeiros MD
--- NOTE | 2016-09-21 23:42 | PN ---
DATE: SUBJECTIVE: She is more alert and awake. PHYSICAL EXAMINATION VITAL SIGNS: Blood pressure is 117/52, temperature 97.7, respiratory rate 20 and pulse 60. HEENT: Pupils equal and reactive to light. Normal-appearing mucosa of the conjunctivae, oropharyngeal, and nasal membrane mucosa. NECK: Supple. No JVD. No carotid bruit. No lymph node. No thyromegaly. CHEST AND LUNGS: Bilateral symmetrical expansion. Good air exchange. No rales. No rhonchi. CARDIOVASCULAR SYSTEM: PMI not localized. S1 and S2. No additional sounds. ABDOMEN: Normoactive bowel sounds. No tenderness. No organomegaly. No masses. EXTREMITIES: No cyanosis. No clubbing. No edema. CENTRAL NERVOUS SYSTEM: Alert, awake, and oriented x2. No neurological deficit could be appreciated. ASSESSMENT: 1. Acute change of mental status likely secondary to postictal versus metabolic encephalopathy. 2. Uncontrolled hypertension which is currently controlled in current blood pressure medications. 3. Dysfunctional gait. 4. Osteoarthritis. PLAN: Continue current medications and the patient is for subacute . Continue physical therapy. [facility] MD Waldemar
[2016-09-22 08:18] LABS: BASO % 0.9 % (0.0-2.0); EOS # 0.1 K/uL (0.0-0.7); HEMATOCRIT 42.5 % (34.0-47.0); LYMPH # 1.2 K/uL (1.0-4.3); LYMPH % 33.2 % (20.0-40.0); MEAN CELL VOLUME 94.6 fL (81.0-99.0); MEAN CORPUSCULAR HGB CONC 32.7 g/dL (33.0-37.0); MEAN PLATELET VOLUME 8.9 fL (7.2-11.7); MONO # 0.3 K/uL (0.0-0.8); MONO % 9.9 % (0.0-10.0); RED CELL DISTRIBUTION WIDTH 12.9 % (11.5-14.5); WHITE BLOOD COUNT 3.5 K/uL (4.8-10.8)
[2016-09-22 08:34] LABS: POTASSIUM 4.9 mmol/L (3.6-5.2)
[2016-09-22 08:38] LABS: CALCIUM 10.7 mg/dl (8.6-10.4)
--- NOTE | 2016-09-22 20:13 | PN ---
DATE: 09/22/2016 SUBJECTIVE: The patient is seen today on 09/22/2016. She is alert and awake and she is not in any cardiopulmonary distress. PHYSICAL EXAMINATION VITAL SIGNS: Blood pressure 120/50, temperature 98.6, respiratory rate 20 and pulse 64. HEENT: Pupils equal and reactive to light. Normal-appearing mucosa of the conjunctivae, oropharyngeal, and nasal membrane mucosa. NECK: Supple. No JVD. No carotid bruit. No lymph node. No thyromegaly. CHEST AND LUNGS: Bilateral symmetrical expansion. Good air exchange. No rales. No rhonchi. CARDIOVASCULAR SYSTEM: PMI not localized. S1 and S2. No additional sounds. ABDOMEN: Normoactive bowel sounds. No tenderness. No organomegaly. No masses. EXTREMITIES: No cyanosis. No clubbing. No edema. CENTRAL NERVOUS SYSTEM: Alert, awake, and oriented x2. No neurological deficit could be appreciated. ASSESSMENT: 1. Acute change of mental status. Differential diagnosis include postictal state versus metabolic encephalopathy. 2. Hypertension, currently controlled. PLAN: Continue current antihypertensives and antiseizure medications, physical therapy. Planned for discharge to subacute rehabilitation. Grisel Medeiros MD
--- NOTE | 2016-09-23 15:43 | PCM.HF ---
Heart Failure Core Measure - Heart Failure Ejection Fraction: 40 % or Greater (EF 55-60%) WAYNE Inhibitor Prescribed: No Contraindication/Reason for not providing: on ARB Beta-Shiloh Prescribed: Bisoprolol Angiotensin II Receptor Shiloh Prescribed: Yes AnticoagulationTherapy for Atrial Fibrillation/Atrialflutter: No Contraindication/Reason for not providing: sinus rhythm now Aldosterone Antagonist Prescribed: No Contraindication/Reason for not providing: RENAL DYSFUNCTION Hydralazine Nitrate Prescribed: Yes Implantable Cardioverter Defibrillator Therapy: No Contraindication/Reason for not providing: EF >40% Cardiac Resynchronization Therapy Prescribed: No Contraindication/Reason for not providing: not indicated - Follow up Will be discharged to: Home (with family/home care) Follow Up Date (must be within 7 days from discharge): 09/26/16 Follow Up Time: 09:00
--- NOTE | 2016-09-23 15:56 | CP.PCM.PN ---
Subjective - Date & Time of Evaluation Date of Evaluation: 09/23/16 Time of Evaluation: 11:00 - Subjective Subjective: Awake, alert, pleasant. No acute distress. Objective - Vital Signs/Intake and Output Vital Signs (last 24 hours): Temp Pulse Resp BP Pulse Ox 97.5 F L 70 20 125/64 95 09/23/16 08:00 09/23/16 08:00 09/23/16 08:00 09/23/16 08:00 09/23/16 08:00 Intake and Output: 09/23/16 09/23/16 06:59 18:59 Intake Total 200 450 Balance 200 450 - Medications Medications: Current Medications Amlodipine Besylate (Norvasc) 5 mg PO DAILY [facility] Last Admin: 09/23/16 09:37 Dose: 5 mg Bisoprolol Fumarate (Zebeta) 5 mg PO DAILY [facility] Last Admin: 09/23/16 09:39 Dose: 5 mg Escitalopram Oxalate (Lexapro) 10 mg PO DAILY [facility] Last Admin: 09/23/16 09:37 Dose: 10 mg Famotidine (Pepcid) 20 mg PO DAILY [facility] Last Admin: 09/23/16 09:37 Dose: 20 mg Ferrous Sulfate (Feosol) 325 mg PO BID [facility] Last Admin: 09/23/16 09:37 Dose: 325 mg Hydralazine HCl (Apresoline) 50 mg PO Q8 [facility] Last Admin: 09/23/16 13:16 Dose: 50 mg Levetiracetam (Keppra) 500 mg PO BID [facility] Last Admin: 09/23/16 09:37 Dose: 500 mg Losartan Potassium (Cozaar) 25 mg PO DAILY [facility] Last Admin: 09/23/16 09:36 Dose: 25 mg Losartan Potassium (Cozaar) 50 mg PO DAILY [facility] Last Admin: 09/23/16 09:36 Dose: 50 mg - Labs Labs: 09/22/16 08:11 09/22/16 08:11 Assessment and Plan - Assessment and Plan (Free Text) Assessment: Patient is seen and examined in the room. Awake, alert and pleasant. No sob or chest pains. Confused but improving. Blood pressure is stable. d/w DR Medeiros, plan to discharge home with the family today. Grand daughter is called by the social media executive.Home care arranged.
[2016-09-23 17:02] VITALS: BP 156/56; PULSE 58; TEMP 98.1; O2SAT 95
--- NOTE | 2016-09-25 18:56 | CARD ---
APPROVED REPORT EKG Measurement Heart [id number] <Conclusion> Sinus rhythm with premature supraventricular complexes Left bundle branch block Abnormal ECG
--- NOTE | 2016-09-25 18:56 | CARD ---
APPROVED REPORT EKG Measurement Heart [id number] <Conclusion> Sinus rhythm with premature atrial complexes Left bundle branch block Abnormal ECG
--- NOTE | 2016-09-25 20:50 | EEG ---
DATE: 09/20/2016 This is a resting electroencephalogram of awakened, drowsy adult. During the study, photic stimulation was performed, hyperventilation was not performed. The resting electroencephalogram consists of 20-30 microvolts, 5-7 hertz, high theta activities noted at the parietal and occipital leads. Anteriorly, fast activity superimposed with 2-3 hertz delta activity seen on parietal and central leads. Some frontal muscle artifact contaminated the frontal leads. There was intermittent high amplitude delta activity seen, which consistent with earlyN2. A photic stimulation did not evoke driving response noted at 2-20 Hz. IMPRESSION: This is a mildly abnormal electroencephalogram because of persistent slowing throughout the record suggestive of bilateral cerebral dysfunction. This is probably secondary to metabolic, vascular or degenerative process. Please correlate the finding with neurological studies and radiological studies. Kenny Casiano MD [email or web address]
--- NOTE | 2016-09-27 12:05 | DS ---
REASON FOR ADMISSION: This is an 85 years old female with history of multiple medical problems, was admitted to the emergency room for acute change of mental status. COURSE OF HOSPITALIZATION: The patient was admitted to the telemetry floor and she was started on IV fluid as she was found to be dehydrated on admission. The patient was also having history of possible seizures and she had a neurology consultation done by Dr. Casiano. for her acute changes of mental status could be due to postictal state. The patient was continued on her antiseizure medication with IV fluid as well as her antihypertensive medications. The patient was started on physical therapy and she was able to ambulate. She was to be discharged home with home care to continue her home medications at home. FINAL DIAGNOSES: 1. Seizure with possible postictal change state and responsible for a period of acute change of mental status. 2. Dehydration. 3. Hypertension. 4. Osteoarthritis. 5. Over active bladder. Ti MD Waldemar MTDD
== END 2016-09-23 18:42 | disposition home or self-care (01) | DRG 71 ==
LOC: C.ER 14:34 → C.9OBSV 14:45 → OBSVTOIN 21:17 → C.5T 23:09 → C.3T 09-16 07:34
PROVIDERS: ADMIT Internal Medicine; ATTEND Internal Medicine
DX: G93.89 Other specified disorders of brain (principal); I13.0 Hypertensive heart and chronic kidney disease with heart failure and stage 1 through stage 4 chronic kidney disease, or unspecified chronic kidney disease; F03.90 Unspecified dementia, unspecified severity, without behavioral disturbance, psychotic disturbance, mood disturbance, and anxiety; I50.9 Heart failure, unspecified; M81.0 Age-related osteoporosis without current pathological fracture; G40.909 Epilepsy, unspecified, not intractable, without status epilepticus; E86.0 Dehydration; I73.9 Peripheral vascular disease, unspecified; J45.909 Unspecified asthma, uncomplicated; E78.00 Pure hypercholesterolemia, unspecified; E78.5 Hyperlipidemia, unspecified; M19.90 Unspecified osteoarthritis, unspecified site

== ENCOUNTER 2017-11-28 15:11 | Observation (INO) | payer MEDICARE, OTHER ==
[2017-11-28 15:11] VITALS: BMI 23.2
[2017-11-28 15:57] LABS: BASO # 0.1 K/uL (0.0-0.2); EOS # 0.3 K/uL (0.0-0.7); EOS % 5.1 % (0.0-4.0); HEMOGLOBIN 12.7 g/dL (11.0-16.0); LYMPH # 0.9 K/uL (1.0-4.3); LYMPH % 16.7 % (20.0-40.0); MEAN CORPUSCULAR HEMOGLOBIN 31.9 pg (27.0-31.0); MEAN CORPUSCULAR HGB CONC 34.3 g/dL (33.0-37.0); MEAN PLATELET VOLUME 7.8 fL (7.2-11.7); MONO # 0.6 K/uL (0.0-0.8); MONO % 11.1 % (0.0-10.0); NEUT # 3.4 K/uL (1.8-7.0); NEUT % 66.1 % (50.0-75.0); NRBC % 0.1 % (0.0-2.0); RBC 3.99 Mil/uL (3.80-5.20); RED CELL DISTRIBUTION WIDTH 12.6 % (11.5-14.5); WHITE BLOOD COUNT 5.2 K/uL (4.8-10.8)
[2017-11-28 16:07] LABS: SQUAMOUS EPITHIAL 2 /hpf (0-5); URINE BACTERIA RARE (<OCC); URINE BILIRUBIN NEGATIVE (NEGATIVE); URINE BLOOD NEGATIVE (NEGATIVE); URINE CLARITY Clear (Clear); URINE COLOR Yellow (YELLOW); URINE GLUCOSE (UA) NORMAL (Normal); URINE LEUKOCYTE ESTERASE NEG Leu/uL (Negative); URINE PROTEIN NEGATIVE (NEGATIVE); URINE UROBILINOGEN NORMAL mg/dL (0.2-1.0)
[2017-11-28 16:17] LABS: ALB/GLOB RATIO 1.2 (1.0-2.1); ALBUMIN 3.6 g/dL (3.5-5.0); CALCIUM 9.8 mg/dl (8.6-10.4)
--- NOTE | 2017-11-28 16:24 | RAD ---
Date of service: 11/28/2017 PROCEDURE: CHEST RADIOGRAPH, 1 VIEW HISTORY: SOB COMPARISON: 11/14/2017 portable chest. FINDINGS: LUNGS: No acute alveolar disease bilaterally. PLEURA: No pneumothorax or pleural fluid seen. CARDIOVASCULAR: Stable cardiomegaly. No pulmonary vascular congestion. OSSEOUS STRUCTURES: No significant abnormalities. VISUALIZED UPPER ABDOMEN: Stable elevated right hemidiaphragm reiterated. OTHER FINDINGS: None. IMPRESSION: No acute cardiopulmonary disease appreciated. The right hemidiaphragm stable as well as cardiomegaly. No pulmonary vascular congestion or pneumonia bilaterally.
[2017-11-28 16:26] LABS: TROPONIN I 0.022 ng/mL (0.00-0.120)
--- NOTE | 2017-11-28 16:26 | C.PDOC ---
History Of Present Illness 87 y/o female, w/PMhx of HTN, presents to the ER for evaluation after her skilled nursing facilities professional found that her blood pressure was elevated. Contrary to triage, patient states that she did not have syncope. Denies having changes in mental status, CP, and SOB. Time Seen by Provider: 11/28/17 15:26 Chief Complaint (Nursing): Shortness Of Breath History Per: Patient History/Exam Limitations: no limitations Onset/Duration Of Symptoms: Hrs Current Symptoms Are (Timing): Gone Severity: Moderate Past Medical History Reviewed: Historical Data, Nursing Documentation, Vital Signs Vital Signs: Last Vital Signs Temp Pulse Resp BP Pulse Ox 98 11/28/17 15:32 - Medical History PMH: Arthritis, Asthma, CHF, Deep Vein Thrombosis (rt leg), HTN, Hypercholesterolemia, Hyperlipidemia, Osteoporosis, Chronic Kidney Disease, Seizures Denies: Diabetes, Hepatitis, HIV, Sexually Transmitted Disease Surgical History: Appendectomy, Cholecystectomy - [facility] Procedures GROUP PSYCHOTHERAPY (10/11/16) INTRODUCE OF OTH THERAP SUBST INTO RESP TRACT, VIA OPENING (05/24/17) OCCUPATIONAL THERAPY (12/19/13) PHYSICAL THERAPY NEC (12/19/13) RECREATIONAL THERAPY (12/19/13) Family History: States: No Known Family Hx - Social History Hx Tobacco Use: No Hx Alcohol Use: No Hx Substance Use: No - Immunization History Hx Tetanus Toxoid Vaccination: No Hx Influenza Vaccination: No Hx Pneumococcal Vaccination: No Review Of Systems Except As Marked, All Systems Reviewed And Found Negative. Constitutional: Negative for: Fever, Chills Cardiovascular: Negative for: Chest Pain Respiratory: Negative for: Shortness of Breath Physical Exam - Physical Exam Appears: Non-toxic, No Acute Distress Skin: Normal Color, Warm, Dry Head: Atraumatic, Normacephalic Eye(s): bilateral: Normal Inspection Nose: Normal Oral Mucosa: Moist Neck: Supple Chest: Symmetrical Cardiovascular: Rhythm Regular Respiratory: Normal Breath Sounds, No Rales, No Rhonchi, No Wheezing Gastrointestinal/Abdominal: Normal Exam, Soft, No Tenderness, No Guarding, No Rebound Neurological/Psych: Oriented x3, Normal Speech, Normal Motor, Normal Sensation ED Course And Treatment - Laboratory Results Result Diagrams: 11/28/17 15:53 11/28/17 15:53 Lab Interpretation: No Changes Compared To Prior Results (trop and UA neg.) ECG: Interpreted By Me ECG Rhythm: Sinus Rhythm ECG Interpretation: Normal Rate From EC O2 Sat by Pulse Oximetry: 98 (RA) Pulse Ox Interpretation: Normal - Radiology CXR: Interpreted by Me, Read By Radiologist CXR Interpretation: Yes: No Acute Disease Reevaluation Time: 16:48 Reassessment Condition: Improved - Physician Consult Information Outcome Of Conversation: 1535 and 1645 d/w Dr. Medeiros, ok to Tele OBs Medical Decision Making Medical Decision Making: Plan: --Labs --UA --EKG --CXR --Hydralazine PO uncontrolled HTN, prob rebound HTN due to missed dose of Hydralazine no s/s tele obs for BP control recc;modify Hydralazine 8AM, 2PM, 8PM to avoid rebound HTN Disposition Doctor Will See Patient In The: Hospital Counseled Patient/Family Regarding: Studies Performed, Diagnosis - Disposition Disposition: HOSPITALIZED Disposition Time: 16:50 Condition: GOOD Forms: [facility] (Georgian) - Clinical Impression Clinical Impression: Uncontrolled hypertension - Scribe Statement The provider has reviewed the documentation as recorded by the Zita Negrete Provider Attestation: All medical record entries made by the Shankaribmary were at my direction and personally dictated by me. I have reviewed the chart and agree that the record accurately reflects my personal performance of the history, physical exam, medical decision making, and the department course for this patient. I have also personally directed, reviewed, and agree with the discharge instructions and disposition.
[2017-11-29] MEDS: metOLazone 5 MG TAB PO SCH ×2 (09:15→17:58)
[2017-11-29] MEDS: Potassium Chloride 20 mEq ER Tab PO SCH (09:18)
[2017-11-29] MEDS: Enoxaparin 40 mg Syringe SC SCH (09:47)
--- NOTE | 2017-11-29 13:19 | CARD ---
APPROVED REPORT Date of service: 11/28/2017 EKG Measurement Heart [id number] <Conclusion> Sinus rhythm with premature atrial complexes Possible Left atrial enlargement Left axis deviation Left bundle branch block Abnormal ECG
--- NOTE | 2017-11-30 04:46 | HP ---
HISTORY OF PRESENT ILLNESS: This is an 87-year-old female with history of multiple medical problems, was brought to emergency room after sustaining a presyncopal episode. The patient was sitting watching TV when she felt severely nauseous and then she had presyncope. The patient was brought to emergency room for evaluation and she was found to have uncontrolled hypertension. The patient was treated in the emergency room and admitted for observation. PAST MEDICAL HISTORY: 1. Hypertension. 2. Osteoarthritis. 3. Primary hyperparathyroidism. FAMILY HISTORY: Noncontributory. SOCIAL HISTORY: No history of smoking, EtOH or substance abuse. REVIEW OF SYSTEMS: Other review of system is positive for bilateral knee pain, right more than left. ALLERGIES: NO KNOWN ALLERGY. MEDICATIONS: As per MAR reviewed and ordered. PHYSICAL EXAMINATION: GENERAL: The patient is in bed comfortable, not in any cardiopulmonary distress at the time of this examination. VITAL SIGNS: Blood pressure 118/68, temperature 97.7, respiratory rate 20, and pulse 66. HEENT: Pupils equal, reactive to light. Normal-appearing mucosa of the conjunctivae, oropharynx and nasal membrane mucosa. NECK: Supple. No JVD. No carotid bruit. No lymph node. No thyromegaly. CARDIOPULMONARY: PMI not localized. S1, S2. No additional sounds. CHEST: Lungs, bilateral symmetrical expansion. Good air exchange. No rales, no rhonchi. ABDOMEN: Normoactive bowel sounds. No tenderness. No organomegaly. No masses. EXTREMITIES: No cyanosis, no clubbing, no edema. SAP GATHERER: Alert, awake, oriented x2. No neurological deficit could be appreciated. ASSESSMENT: 1. Presyncope, likely vasovagal. 2. Uncontrolled hypertension. 3. Osteoarthritis. 4. Primary hyperparathyroidism. 5. Hypercalcemia. PLAN: Resume patient's home medications. Neuro check every 4 hours. If patient remains asymptomatic, we will discharge home in the morning. Grisel Medeiros MD
[2017-11-30] MEDS: Potassium Chloride 20 mEq ER Tab PO SCH (09:59)
[2017-11-30] MEDS: Enoxaparin 40 mg Syringe SC SCH (10:01)
[2017-11-30] MEDS: metOLazone 5 MG TAB PO SCH (10:02)
--- NOTE | 2017-11-30 10:53 | CP.PCM.PN ---
Subjective - Date & Time of Evaluation Date of Evaluation: 11/30/17 Time of Evaluation: 10:53 - Subjective Subjective: PT SEEN WITH DR. MELCHOR AND CLEARED FOR D/C HOME TODAY. PER PT HER HOMEMAKER WILL PICK HER UP AT 1330 TODAY. PT EDUCATED ON TAKING DIURETICS ONCE A WEEK RATHER THAN TWICE PER DR. MELCHOR. TO F/U WITH DR. MELCHOR IN THE OFFICE. NO FURTHER ORDERS. -FOLLOW UP WITH DR. MELCHOR IN THE OFFICE WITHIN 7 DAYS---CALL THE OFFICE TO MAKE YOUR APPOINTMENT. -CONTINUE HOME MEDICATIONS; NO NEW PRESCRIPTIONS. -PLEASE MAKE NOTE, ONLY TAKE YOUR LASIX AND METAZALONE (YOUR DIURETICS) ONCE A WEEK, NOT TWICE A WEEK. -IF YOU HAVE ANY QUESTIONS, CONTACT DR. MELCHOR' OFFICE. -SEGUIR CON EL DR. ROBB EN LA OFICINA EN EL PLAZO DE [address] --- LLAME A LA OFICINA PARA HACER HERBERT GUSTAVO. -CONTINUAR LOS MEDICAMENTOS EN EL HOGAR; NO HAY NUEVAS PRESCRIPCIONES. -POR FAVOR, TOME NOTA, SOLO TOME HERBERT LASIX Y METAZALONA (HERBERT DIURTICA) [place] VEZ A LA SEMANA, NO DOS VECES POR SEMANA. -Si TIENE ALGUNA PREGUNTA, CONTACTE CON EL DR. TAD SCHMID. Objective - Vital Signs/Intake and Output Vital Signs (last 24 hours): Temp Pulse Resp BP Pulse Ox 98.2 F 69 18 151/55 H 95 11/30/17 08:17 11/30/17 10:47 11/30/17 08:17 11/30/17 10:47 11/30/17 08:17 Intake and Output: 11/30/17 11/30/17 06:59 18:59 Intake Total 300 Output Total 200 Balance 100 - Medications Medications: Current Medications Aspirin (Ecotrin) 81 mg PO DAILY [facility] Last Admin: 11/30/17 09:58 Dose: 81 mg Bisoprolol Fumarate (Zebeta) 5 mg PO DAILY [facility] Last Admin: 11/30/17 10:10 Dose: Not Given Cinacalcet (Sensipar) 60 mg PO DAILY [facility] Last Admin: 11/30/17 09:59 Dose: 60 mg Colchicine (Colocrys) 0.6 mg PO DAILY [facility] Last Admin: 11/30/17 10:01 Dose: 0.6 mg Donepezil HCl (Aricept) 5 mg PO HS [facility] Last Admin: 11/29/17 22:29 Dose: 5 mg Enoxaparin Sodium (Lovenox) 40 mg SC DAILY [facility] Last Admin: 11/30/17 10:01 Dose: 40 mg Escitalopram Oxalate (Lexapro) 5 mg PO DAILY [facility] Last Admin: 11/30/17 10:01 Dose: 5 mg Ferrous Sulfate (Feosol) 325 mg PO BID [facility] Last Admin: 11/30/17 09:58 Dose: 325 mg Hydralazine HCl (Apresoline) 25 mg PO Q8H [facility] Last Admin: 11/30/17 06:59 Dose: 25 mg Levetiracetam (Keppra) 500 mg PO BID [facility] Last Admin: 11/30/17 09:59 Dose: 500 mg Oxybutynin Chloride (Ditropan Xl) 5 mg PO DAILY [facility] Last Admin: 11/30/17 10:41 Dose: 5 mg Rosuvastatin Calcium (Crestor) 10 mg PO HS [facility] Last Admin: 11/29/17 22:29 Dose: 10 mg - Labs Labs: 11/28/17 15:53 11/28/17 15:53
[2017-11-30 15:46] VITALS: BP 117/70; PULSE 71; RESP 20; TEMP 98.3; O2SAT 97
--- NOTE | 2017-12-01 09:38 | DS ---
REASON FOR ADMISSION: This is an 87-year-old female with history of multiple medical problems who was admitted for presyncope and uncontrolled hypertension. COURSE OF HOSPITALIZATION: The patient was admitted to telemetry floor and she had neuro check every 4 hours. The patient was believed to have vasovagal episode. The patient's compliance with blood pressure medications was in question. The patient's blood pressure was well controlled over the prescribed medications. The patient was discharged home and home care was initiated by case management. FINAL DIAGNOSES: Presyncope, uncontrolled hypertension, osteoarthritis, primary hyperparathyroidism with hypercalcemia. [facility] MD Waldemar
== END 2017-11-30 17:27 | disposition home or self-care (01) ==
LOC: C.ER 15:11 → C.9E 16:50 → C.6T 19:39
PROVIDERS: ADMIT Internal Medicine; ATTEND Internal Medicine
DX: R55 Syncope and collapse (principal); I13.0 Hypertensive heart and chronic kidney disease with heart failure and stage 1 through stage 4 chronic kidney disease, or unspecified chronic kidney disease; E21.0 Primary hyperparathyroidism; E78.00 Pure hypercholesterolemia, unspecified; M19.90 Unspecified osteoarthritis, unspecified site; M81.0 Age-related osteoporosis without current pathological fracture
CPT/HCPCS: 71045; 80053; 81001; 82948; 83880; 84484; 85025; 93005; 97116; 97162; 99285; G0378; G8978; G8979; J1650

== ENCOUNTER 2017-12-14 18:19 | Emergency (ER) | payer MEDICARE, OTHER ==
[2017-12-14 18:22] VITALS: BMI 42.7
--- NOTE | 2017-12-14 18:58 | C.PDOC ---
History Of Present Illness 87 y/o female presents to the ED with complaints of chest pain that developed around 5:00pm. Family checked the patients blood pressure, and found systolic to be in the 180s. Patient denies having any associated SOB, nausea, dizziness, diaphoresis, or other symptoms. Patient reports the pain lasted about 30 min and resolved spontaneously. Currently patient has no complaints. Time Seen by Provider: 12/14/17 18:43 Chief Complaint (Nursing): Chest Pain History Per: Patient History/Exam Limitations: no limitations Onset/Duration Of Symptoms: Mins (x30) Current Symptoms Are (Timing): Gone Past Medical History Reviewed: Historical Data, Nursing Documentation, Vital Signs Vital Signs: Last Vital Signs Temp Pulse 70 12/14/17 18:25 Resp 12 12/14/17 18:25 BP 213/90 H 12/14/17 18:25 Pulse Ox 93 L 12/14/17 18:25 - Medical History PMH: Arthritis, Asthma, CHF, Dementia, Deep Vein Thrombosis (rt leg), HTN, Hypercholesterolemia, Hyperlipidemia, Osteoporosis, Chronic Kidney Disease, Seizures Denies: Diabetes, Hepatitis, HIV, Sexually Transmitted Disease Surgical History: Appendectomy, Cholecystectomy - [facility] Procedures GROUP PSYCHOTHERAPY (10/11/16) INTRODUCE OF OTH THERAP SUBST INTO RESP TRACT, VIA OPENING (05/24/17) OCCUPATIONAL THERAPY (12/19/13) PHYSICAL THERAPY NEC (12/19/13) RECREATIONAL THERAPY (12/19/13) Family History: States: Unknown Family Hx - Social History Hx Tobacco Use: No Hx Alcohol Use: No Hx Substance Use: No - Immunization History Hx Tetanus Toxoid Vaccination: No Hx Influenza Vaccination: No Hx Pneumococcal Vaccination: No Review Of Systems Constitutional: Negative for: Fever, Chills Cardiovascular: Positive for: Chest Pain. Negative for: Palpitations Respiratory: Negative for: Cough, Shortness of Breath, SOB with Excertion Gastrointestinal: Negative for: Nausea, Vomiting, Abdominal Pain, Diarrhea Neurological: Negative for: Weakness, Numbness, Headache, Dizziness Physical Exam - Physical Exam Appears: Non-toxic, No Acute Distress Skin: Normal Color, Warm, Dry Head: Atraumatic, Normacephalic Eye(s): bilateral: Normal Inspection, PERRL, EOMI Oral Mucosa: Moist Neck: Normal ROM, Supple Chest: Symmetrical, No Deformity, No Tenderness Cardiovascular: Rhythm Regular, No Murmur Respiratory: No Accessory Muscle Use, Other (Coarse breath sounds at the bilateral lung bases) Gastrointestinal/Abdominal: Soft, No Tenderness, No Distention Extremity: Bilateral: Atraumatic, Normal Color And Temperature, Normal ROM Pulses: Left Radial: Normal, Right Radial: Normal Neurological/Psych: Oriented x3, Normal Speech ED Course And Treatment - Laboratory Results Result Diagrams: 12/14/17 19:30 12/14/17 20:43 ECG: Interpreted By Me ECG Rhythm: Sinus Rhythm Interpretation Of ECG: LAD, LBBB, no concordant ST changes O2 Sat by Pulse Oximetry: 93 (RA) Pulse Ox Interpretation: Abnormal - Radiology CXR: Interpreted by Me CXR Interpretation: Yes: No Acute Disease Medical Decision Making Medical Decision Making: Impression: 87 y/o female with chest pain Labs done, hypernatremia noted. Case discussed with PMD Dr. Medeiros. Would like patient discharged home if repeat BMP is normal. Repeat BMP done, first was likely lab error- Na 138.. Hydralazine 25mg PO and then 10mg IVP given for hypertension. Results discussed with patient, amenable to discharge home. Disposition - Disposition Disposition: HOME/ ROUTINE Disposition Time: 22:00 Condition: GOOD Additional Instructions: YOLI WINN, thank you for letting us take care of you today. Your provider was Estela Naqvi MD and you were treated for CHEST PAIN. The emergency medical care you received today was directed at your acute symptoms. If you were prescribed any medication, please fill it and take as directed. It may take several days for your symptoms to resolve. Return to the Emergency Department if your symptoms worsen, do not improve, or if you have any other problems. Please contact your doctor or call one of the physicians/clinics you have been referred to that are listed on the Patient Visit Information form that is included in your discharge packet. Bring any paperwork you were given at d ischarge with you along with any medications you are taking to your follow up visit. Our treatment cannot replace ongoing medical care by a primary care provider outside of the emergency department. Thank you for allowing the [facility] team to be part of your care today. If you had an X-Ray or CT scan: A Radiologist will review the ED reading if any change in treatment is needed we will contact you. If you had a blood, urine, or wound culture: It will take several days for the results, if any change in treatment is needed we will contact you. If you had an STI test: It will take 48 hours for the results. Please call after 1 week if you have not heard back. Instructions: High Blood Pressure (DC), Chest Pain (DC) Forms: [employer] (Latvian) - Clinical Impression Clinical Impression: Chest pain, Hypertension - Scribe Statement The provider has reviewed the documentation as recorded by the Scribe (Tosha Kate) Provider Attestation: All medical record entries made by the Scribe were at my direction and personally dictated by me. I have reviewed the chart and agree that the record accurately reflects my personal performance of the history, physical exam, medical decision making, and the department course for this patient. I have also personally directed, reviewed, and agree with the discharge instructions and disposition.
[2017-12-14 19:33] LABS: BASO # 0.1 K/uL (0.0-0.2); EOS # 0.2 K/uL (0.0-0.7); EOS % 4.7 % (0.0-4.0); HEMOGLOBIN 12.5 g/dL (11.0-16.0); LYMPH # 1.2 K/uL (1.0-4.3); LYMPH % 21.8 % (20.0-40.0); MEAN CELL VOLUME 93.3 fL (81.0-99.0); MEAN CORPUSCULAR HEMOGLOBIN 31.1 pg (27.0-31.0); MEAN CORPUSCULAR HGB CONC 33.3 g/dL (33.0-37.0); MEAN PLATELET VOLUME 8.4 fL (7.2-11.7); MONO # 0.7 K/uL (0.0-0.8); MONO % 12.3 % (0.0-10.0); NEUT # 3.2 K/uL (1.8-7.0); NEUT % 60.2 % (50.0-75.0); RBC 4.03 Mil/uL (3.80-5.20); RED CELL DISTRIBUTION WIDTH 12.5 % (11.5-14.5); WHITE BLOOD COUNT 5.3 K/uL (4.8-10.8)
[2017-12-14 20:13] LABS: BLOOD UREA NITROGEN 22 mg/dL (7-17); CALCIUM 10.2 mg/dl (8.6-10.4); GFR NON-AFRICAN AMERICAN 52
[2017-12-14] MEDS ORDERED: Sodium Chloride 0.9% 1,000 ML IV ONE (20:15)
[2017-12-14 21:07] LABS: BLOOD UREA NITROGEN 22 mg/dL (7-17); CALCIUM 9.7 mg/dl (8.6-10.4); GFR NON-AFRICAN AMERICAN 52
[2017-12-14] MEDS ORDERED: Metoprolol 1 mg/ml Inj IVP ONE (21:21)
[2017-12-14 21:25] LABS: OSMOLALITY,URINE 416 mosm/kg (300-1000)
[2017-12-14] MEDS ORDERED: Metoprolol 1 mg/ml Inj ONE (21:26)
[2017-12-15 00:37] VITALS: TEMP 98.5
[2017-12-15 03:08] VITALS: BP 130/70; PULSE 72; RESP 20; O2SAT 95
--- NOTE | 2017-12-15 08:19 | RAD ---
Date of service: 12/14/2017 HISTORY: chest pain COMPARISON: 11/28/2017 FINDINGS: LUNGS: Biapical pleural thickening with upper lobe granulomatous changes. Diffuse increased interstitial lung markings. Right hilar prominence. Patchy increased markings in the left mid to lower lung zone. Elevated right hemidiaphragm. PLEURA: No significant pleural effusion identified, no pneumothorax apparent. CARDIOVASCULAR: Atherosclerotic calcification present in the aorta. Normal. OSSEOUS STRUCTURES: No significant abnormalities. VISUALIZED UPPER ABDOMEN: Normal. OTHER FINDINGS: None. IMPRESSION: Biapical pleural thickening with upper lobe granulomatous changes. Diffuse increased interstitial lung markings. Right hilar prominence. Patchy increased markings in the left mid to lower lung zone. Elevated right hemidiaphragm.
--- NOTE | 2017-12-15 17:40 | CARD ---
APPROVED REPORT Date of service: 12/14/2017 EKG Measurement Heart [id number] <Conclusion> Normal sinus rhythm Left axis deviation Left bundle branch block Abnormal ECG
== END 2017-12-15 03:07 | disposition home or self-care (01) ==
LOC: C.ER 18:19
DX: I10 Essential (primary) hypertension (principal); R07.9 Chest pain, unspecified; I50.9 Heart failure, unspecified; E78.00 Pure hypercholesterolemia, unspecified
CPT/HCPCS: 71045; 80048; 83930; 83935; 84300; 84484; 85025; 93005; 96361; 96374; 99285; J7030

== ENCOUNTER 2018-01-31 14:56 | Inpatient (IN) | payer MEDICARE, OTHER ==
[2018-01-31 14:56] VITALS: BMI 42.7
[2018-01-31] MEDS ORDERED: Sodium Chloride 0.9% 1,000 ML IV ONE (15:08)
[2018-01-31 15:35] LABS: EOS # 0.1 K/uL (0.0-0.7); EOS % 1.2 % (0.0-4.0); MONO # 0.5 K/uL (0.0-0.8); NEUT # 3.6 K/uL (1.8-7.0); WHITE BLOOD COUNT 5.2 K/uL (4.8-10.8)
[2018-01-31 15:40] LABS: BASO % 0.7 % (0.0-2.0); HEMOGLOBIN 12.6 g/dL (11.0-16.0); LYMPH # 0.9 K/uL (1.0-4.3); LYMPH % 18.1 % (20.0-40.0); MEAN CORPUSCULAR HEMOGLOBIN 31.9 pg (27.0-31.0); MEAN CORPUSCULAR HGB CONC 33.1 g/dL (33.0-37.0); MEAN PLATELET VOLUME 8.4 fL (7.2-11.7); MONO % 10.6 % (0.0-10.0); NEUT % 69.4 % (50.0-75.0); NRBC % 0.1 % (0.0-2.0); RBC 3.95 Mil/uL (3.80-5.20); RED CELL DISTRIBUTION WIDTH 14.6 % (11.5-14.5)
[2018-01-31 15:43] LABS: MEAN CELL VOLUME 96.5 fL (81.0-99.0)
[2018-01-31 15:44] LABS: INR 1.3; PROTHROMBIN TIME 14.1 SECONDS (9.7-12.2)
[2018-01-31 16:15] LABS: ALB/GLOB RATIO 1.5 (1.0-2.1); CALCIUM 8.6 mg/dl (8.6-10.4)
[2018-01-31 16:26] LABS: TROPONIN I 0.021 ng/mL (0.00-0.120)
--- NOTE | 2018-01-31 16:45 | CT ---
Date of service: 01/31/2018 PROCEDURE: CT HEAD WITHOUT CONTRAST. HISTORY: s/p fall - r/o ICH and fx COMPARISON: Noncontrast head CT performed 09/14/16 TECHNIQUE: Axial computed tomography images were obtained through the head/brain without intravenous contrast. Radiation dose: Total exam DLP = 998.57 mGy-cm. This CT exam was performed using one or more of the following dose reduction techniques: Automated exposure control, adjustment of the mA and/or kV according to patient size, and/or use of iterative reconstruction technique. FINDINGS: Marked streak artifact limits evaluation of the skull base. HEMORRHAGE: No intracranial hemorrhage. BRAIN: Diffuse atrophy with prominence of the ventricles and sulci noted. No mass effect or edema. Scattered periventricular and subcortical white matter hypodensities, which are nonspecific, but often seen with chronic microvascular ischemic disease. Chronic appearing bilateral basal ganglia lacunar infarcts measuring up to 8 mm on the left. Please note that MRI with diffusion imaging is more sensitive in the detection of acute ischemic event. VENTRICLES: No hydrocephalus. CALVARIUM: Unremarkable. PARANASAL SINUSES: Unremarkable as visualized. No significant inflammatory changes. MASTOID AIR CELLS: Unremarkable as visualized. No inflammatory changes. OTHER FINDINGS: None. IMPRESSION: Examination limited by streak artifact, particularly the skull base. Scattered periventricular and subcortical white matter hypodensities, which are nonspecific, but often seen with chronic microvascular ischemic disease. Chronic appearing bilateral lacunar infarcts measuring up to 8 mm on the left.
--- NOTE | 2018-01-31 17:02 | CT ---
Date of service: 01/31/2018 PROCEDURE: CT Cervical Spine without contrast HISTORY: s/p fall - r/o fx COMPARISON: None available. TECHNIQUE: Axial computed tomography images were obtained of the cervical spine without the use of intravenous contrast. Coronal and sagittal reformatted images were created and reviewed. Radiation dose: Total exam DLP = 279.05 mGy-cm. This CT exam was performed using one or more of the following dose reduction techniques: Automated exposure control, adjustment of the mA and/or kV according to patient size, and/or use of iterative reconstruction technique. FINDINGS: VERTEBRAE: The vertebral bodies are maintained in height. There is a minimally displaced fracture through the mid aspect of the odontoid process. There is a vertically oriented nondisplaced fracture through the junction of the left lateral mass and vertebral body. This is mildly comminuted. There is no other fracture identified. The 2 fractures noted above are likely continuous through the C2 vertebra. The atlantoaxial articulation is preserved. There is grade 1 anterolisthesis at C2-3. Normal alignment is maintained elsewhere. DISCS/SPINAL CANAL/NEURAL FORAMINA: There is narrowing of all of the intervertebral disc spaces of the cervical spine. There is extensive osteophyte formation about the C4-5 disc space resulting in moderate central spinal canal stenosis. PARASPINAL SOFT TISSUES: Unremarkable. OTHER FINDINGS: None. IMPRESSION: Fracture of the odontoid process and junction of the left lateral mass and body of the C2 vertebra. Minimal displacement. Additional findings as above. These findings were discussed by telephone with Dr. Henderson at 4:52 p.m. on 01/31/2018.
--- NOTE | 2018-01-31 17:03 | RAD ---
Date of service: 01/31/2018 PROCEDURE: Radiographs of the pelvis. HISTORY: r/o fx COMPARISON: None. FINDINGS: BONES: Pelvic Bones: Fractures of the right superior and inferior pubic rami of indeterminate age. Radiographic evaluation is somewhat limited. Consider evaluation with computed tomography. No additional pelvic fracture identified. Hips: Grossly unremarkable. JOINTS: Sacroiliac Joints: Unremarkable. Pubic Symphysis: Unremarkable. OTHER FINDINGS: None. IMPRESSION: Fractures of the right superior and inferior pubic rami of indeterminate age. Consider further evaluation with computed tomography.
--- NOTE | 2018-01-31 17:06 | RAD ---
Date of service: 01/31/2018 PROCEDURE: CHEST RADIOGRAPH, 1 VIEW HISTORY: r/o infiltrate COMPARISON: 12/14/2017 FINDINGS: LUNGS: Clear. PLEURA: Nonspecific elevation of the right hemidiaphragm, unchanged. No pleural effusion or pneumothorax. CARDIOVASCULAR: No aortic atherosclerotic calcification present. Normal. OSSEOUS STRUCTURES: No significant abnormalities. VISUALIZED UPPER ABDOMEN: Normal. OTHER FINDINGS: None. IMPRESSION: No active disease.
--- NOTE | 2018-01-31 17:07 | C.PDOC ---
History Of Present Illness 87 y/o female presents to the ED for evaluation s/p near syncopal episode. Patient states earlier today she felt dizzy then tripped and fell. She denies any chest pain or SOB at any time. Denies any extremity weakness, numbness, ting ling, fever, or cough. States she has been otherwise eating well. There was no LOC. Patient is now complaining of neck pain and also sustained facial bruising. - HPI Time Seen by Provider: 01/31/18 15:02 Chief Complaint (Nursing): Trauma History Per: Patient History/Exam Limitations: no limitations Injury Occurred (Timing): Just Before Arrival Past Medical History Reviewed: Historical Data, Nursing Documentation, Vital Signs Vital Signs: Last Vital Signs Temp Pulse 62 01/31/18 16:35 Resp 16 01/31/18 16:35 BP 179/64 H 01/31/18 16:35 Pulse Ox 95 01/31/18 16:35 - Medical History PMH: Arthritis, Asthma, CHF, Dementia, Deep Vein Thrombosis (rt leg), HTN, Hypercholesterolemia, Hyperlipidemia, Osteoporosis, Chronic Kidney Disease, Seizures Denies: Diabetes, Hepatitis, HIV, Sexually Transmitted Disease Surgical History: Append[facility], [facility] Procedures GROUP PSYCHOTHERAPY (10/11/16) INTRODUCE OF OTH THERAP SUBST INTO RESP TRACT, VIA OPENING (05/24/17) OCCUPATIONAL THERAPY (12/19/13) PHYSICAL THERAPY NEC (12/19/13) RECREATIONAL THERAPY (12/19/13) Family History: States: Unknown Family Hx - Social History Hx Tobacco Use: No Hx Alcohol Use: No Hx Substance Use: No - Immunization History Hx Tetanus Toxoid Vaccination: No Hx Influenza Vaccination: No Hx Pneumococcal Vaccination: No Review Of Systems Except As Marked, All Systems Reviewed And Found Negative. Constitutional: Negative for: Fever, Chills Eyes: Negative for: Vision Change Cardiovascular: Negative for: Chest Pain Respiratory: Negative for: Shortness of Breath Gastrointestinal: Negative for: Vomiting, Abdominal Pain, Diarrhea Musculoskeletal: Positive for: Neck Pain Skin: Positive for: Bruising (near right eye) Neurological: Positive for: Dizziness (prior to fall), Other (Near syncopal episode). Negative for: Weakness, Numbness, Incoordination Physical Exam - Physical Exam Appears: Non-toxic, No Acute Distress Skin: Warm, Dry Head: Normacephalic, No Laceration Eye(s): bilateral: PERRL, EOMI, right: Other (Ecchymosis to the right eyelid) Oral Mucosa: Moist Neck: Trachea Midline, Supple, Other (Diffuse neck tenderness) Chest: Symmetrical Cardiovascular: Rhythm Regular, No Murmur Respiratory: Normal Breath Sounds, No Rales, No Rhonchi, No Wheezing Gastrointestinal/Abdominal: Soft, No Tenderness, No Distention Extremity: Bilateral: Atraumatic, Normal Color And Temperature Pulses: Left Dorsalis Pedis: Normal, Right Dorsalis Pedis: Normal Neurological/Psych: Oriented x3, Normal Speech, Normal Cranial Nerves, Other (No focal deficits) ED Course And Treatment - Laboratory Results Result Diagrams: 01/31/18 15:30 01/31/18 15:30 ECG: Interpreted By Me, Viewed By Me ECG Rhythm: Sinus Rhythm Interpretation Of ECG: Normal axis, normal intervals Rate From EC (bpm) O2 Sat by Pulse Oximetry: 95 (RA) Pulse Ox Interpretation: Normal - CT Scan/US CT Head Other Rad Studies (CT/US): Read By Radiologist CT/US Interpretation: Accession No. : [id number]. Patient Name / ID : TATUM KENT / [id number]. Exam Date : 01/31/2018 16:14:58 ( Approved ). Study Comment : Sex / Age : F / 87Y. Creator : Pilar Greene. Dictator : Lolita Echeverria MD. Specialty Department Supervisor : Food And Beverage Cashier : Lolita Echeverria MD. Approver2 : Report Date : 01/31/2018 16:28:18. My Comment : . Date of service: 01/31/2018. PROCEDURE: CT HEAD WITHOUT CONTRAST. HISTORY: s/p fall - r/o ICH and fx. COMPARISON: Noncontrast head CT performed 09/14/16. TECHNIQUE: Axial computed tomography images were obtained through the head/brain without intravenous contrast. Radiation dose: Total exam DLP = 998.57 mGy-cm. This CT exam was performed using one or more of the following dose reduction techniques: Automated exposure control, adjustment of the mA and/or kV according to patient size, and/or use of iterative reconstruction technique. FINDINGS: Marked streak artifact limits evaluation of the skull base. HEMORRHAGE: No intracranial hemorrhage. BRAIN: Diffuse atrophy with prominence of the ventricles and sulci noted. No mass effect or edema. Scattered periventricular and subcortical white matter hypodensities, which are nonspecific, but often seen with chronic microvascular ischemic disease. Chronic appearing bilateral basal ganglia lacunar infarcts measuring up to 8 mm on the left. Please note that MRI with diffusion imaging is more sensitive in the detection of acute ischemic event. VENTRICLES: No hydrocephalus. CALVARIUM: Unremarkable. PARANASAL SINUSES: Unremarkable as visualized. No significant inflammatory changes. MASTOID AIR CELLS: Unremarkable as visualized. No inflammatory changes. OTHER FINDINGS: None. IMPRESSION: Examination limited by streak artifact, particularly the skull base. Scattered periventricular and subcortical white matter hypodensities, which are nonspecific, but often seen with chronic microvascular ischemic disease. Chronic appearing bilateral lacunar infarcts measuring up to 8 mm on the left. CT C-spine Other Rad Studies (CT/US): Read By Radiologist CT/US Interpretation: Accession No. : [id number]. Patient Name / ID : TATUM KENT / [id number]. Exam Date : 01/31/2018 16:19:38 ( Approved ). Study Comment : Sex / Age : F / 87Y. Creator : Pilar Grenee. Dictator : Arnulfo Arellano MD. Specialty Department Supervisor : Food And Beverage Cashier : Arnulfo Arellano MD. Approver2 : Report Date : 01/31/2018 16:28:31. My Comment : . Date of service: 01/31/2018. PROCEDURE: CT Cervical Spine without contrast. HISTORY: s/p fall - r/o fx. COMPARISON: None available. TECHNIQUE: Axial computed tomography images were obtained of the cervical spine without the use of intravenous contrast. Coronal and sagittal reformatted images were created and reviewed. Radiation dose: Total exam DLP = 279.05 mGy-cm. This CT exam was performed using one or more of the following dose reduction techniques: Automated exposure control, adjustment of the mA and/or kV according to patient size, and/or use of iterative reconstruction technique. FINDINGS: VERTEBRAE: The vertebral bodies are maintained in height. There is a minimally displaced fracture through the mid aspect of the odontoid process. There is a vertically oriented nondisplaced fracture through the junction of the left lateral mass and vertebral body. This is mildly comminuted. There is no other fracture identified. The 2 fractures noted above are likely continuous through the C2 vertebra. The atlantoaxial articulation is preserved. There is grade 1 anterolisthesis at C2-3. Normal alignment is maintained elsewhere. DISCS/SPINAL CANAL/NEURAL FORAMINA: There is narrowing of all of the intervertebral disc spaces of the cervical spine. There is extensive osteophyte formation about the C4-5 disc space resulting in moderate central spinal canal stenosis. PARASPINAL SOFT TISSUES: Unremarkable. OTHER FINDINGS: None. IMPRESSION: Fracture of the odontoid process and junction of the left lateral mass and body of the C2 vertebra. Minimal displacement. Additional findings as above. These findings were discussed by telephone with Dr. Henderson at 4:52 p.m. on 01/31/2018. CT Orbits/Facials Other Rad Studies (CT/US): Read By Radiologist CT/US Interpretation: Accession No. : [id number]. Patient Name / ID : TATUM KENT / [id number]. Exam Date : 01/31/2018 16:17:31 ( Approved ). Study Comment : Sex / Age : F / 87Y. Creator : Pilar Greene. Dictator : Lolita Echeverria MD. Specialty Department Supervisor : Food And Beverage Cashier : Lolita Echeverria MD. Approver2 : Report Date : 01/31/2018 16:28:23. My Comment : . Date of service: 01/31/2018. CT orbits without IV contrast. Indication: s/p fall - r/o fx. Comparison: Noncontrast head CT performed earlier the same day. Technique: Axial computed tomography images were obtained of the orbits without the use of intravenous contrast. Coronal and sagittal reformatted images were generated and reviewed. This CT exam was performed using 1 or more of the following dose reduction techniques: Automated exposure control, adjustment of the MAA and/or kV according to patient size, and/or use of iterative reconstruction technique. Radiation dose: Total exam DLP = 716.18 mGy-cm. Findings: Soft tissue swelling, right facial bones. The facial bones appear unremarkable and without acute displaced fracture. Abnormally enlarged right orbital vein raises concern for vascular abnormality such as orbital varix or less likely CC fistula. The mastoid air cells appear clear. The paranasal sinuses appear clear. The visualized brain appears unremarkable. Intracranial atherosclerosis. Vascular calcifications including coronary arteries. Osseous demineralization. Degenerative changes of the included cervical spine. Incidental note is made oblique fracture of the C2 vertebral body, type 3. Soft tissues appear unremarkable. Impression: Oblique fracture of the C2 vertebral body, appears consistent with type 3 fracture. Soft tissue swelling, right facial bones. Abnormally enlarged right orbital vein raises concern for vascular abnormality such as orbital varix or less likely CC fistula. Recommend follow-up ophthalmology consultation. Please refer to CT of the cervical spine performed concurrently. Medical Decision Making Medical Decision Making: Impression: Near syncope, Neck pain, Facial contusion, S/p Fall Initial Plan: --CT Head --CT Orbits/Facials --CT C-spine --EKG --Blood work --Urinalysis --Urine culture --Chest x-ray --Pelvic x-ray --IV fluids 16:52 Upon phone call from radiology revealing C2 fracture, pt immediately placed into c-collar. 17:01 Neurosurg on-call, Dr. De Anda, paged for consult. 17:10 Received call back, discussed imaging with Dr. De Anda, recommends [place] J collar, no surgical intervention at this time. 17:[address] Medeiros, pt admitted to telemetry for near syncope and C2 fracture. Pt remains neurologically intact throughout entire ED stay. Disposition Counseled Patient/Family Regarding: Studies Performed, Diagnosis - Disposition Disposition: HOSPITALIZED Disposition Time: 17:18 Condition: GUARDED - POA Present On Arrival: Falls Or Trauma - Clinical Impression Clinical Impression: Near syncope, C2 cervical fracture - Scribe Statement The provider has reviewed the documentation as recorded by the Zita Kate Provider Attestation: All medical record entries made by the Zita were at my direction and personally dictated by me. I have reviewed the chart and agree that the record accurately reflects my personal performance of the history, physical exam, medical decision making, and the department course for this patient. I have also personally directed, reviewed, and agree with the discharge instructions and disposition. Decision To Admit - Pt Status Changed To: Hospital Disposition Of: Inpatient - Admit Certification Admit to Inpatient:: After my assessment, the patient will require hospitalization for at least two midnights. This is because of the severity of symptoms shown, intensity of services needed, and/or the medical risk in this patient being treated as an outpatient. - InPatient: Physician Admission Certification: I certify that this patient requires 2 or more midnights of care for the following reason:: C2 fracture, Near syncope - . Bed Request Type: Telemetry Patient Diagnosis: Near syncope, C2 cervical fracture
[2018-01-31 17:12] LABS: SQUAMOUS EPITHIAL 3 /hpf (0-5); URINE BACTERIA RARE (<OCC); URINE BILIRUBIN NEGATIVE (NEGATIVE); URINE BLOOD NEGATIVE (NEGATIVE); URINE CLARITY Clear (Clear); URINE COLOR Yellow (YELLOW); URINE GLUCOSE (UA) NORMAL (Normal); URINE HYALINE CAST 0-2 /lpf (0-2); URINE LEUKOCYTE ESTERASE NEG Leu/uL (Negative); URINE PROTEIN 1+ mg/dL (NEGATIVE); URINE UROBILINOGEN NORMAL mg/dL (0.2-1.0)
--- NOTE | 2018-01-31 17:14 | CT ---
Date of service: 01/31/2018 CT orbits without IV contrast Indication: s/p fall - r/o fx Comparison: Noncontrast head CT performed earlier the same day. Technique: Axial computed tomography images were obtained of the orbits without the use of intravenous contrast. Coronal and sagittal reformatted images were generated and reviewed. This CT exam was performed using 1 or more of the following dose reduction techniques: Automated exposure control, adjustment of the MAA and/or kV according to patient size, and/or use of iterative reconstruction technique. Radiation dose: Total exam DLP = 716.18 mGy-cm. Findings: Soft tissue swelling, right facial bones. The facial bones appear unremarkable and without acute displaced fracture. Abnormally enlarged right orbital vein raises concern for vascular abnormality such as orbital varix or less likely CC fistula. The mastoid air cells appear clear. The paranasal sinuses appear clear. The visualized brain appears unremarkable. Intracranial atherosclerosis. Vascular calcifications including coronary arteries. Osseous demineralization. Degenerative changes of the included cervical spine. Incidental note is made oblique fracture of the C2 vertebral body, type 3. Soft tissues appear unremarkable. Impression: Oblique fracture of the C2 vertebral body, appears consistent with type 3 fracture. Soft tissue swelling, right facial bones. Abnormally enlarged right orbital vein raises concern for vascular abnormality such as orbital varix or less likely CC fistula. Recommend follow-up ophthalmology consultation. Please refer to CT of the cervical spine performed concurrently.
--- NOTE | 2018-01-31 18:18 | CT ---
Date of service: 01/31/2018 PROCEDURE: CT Pelvis without contrast HISTORY: f/u to x-rays performed today COMPARISON: January 31, 2018 pelvis single view. 06/05/2015 CT abdomen and pelvis including area of interest, right pelvic ring. TECHNIQUE: Contiguous axial images of the pelvis . No intravenous or oral contrast given. Coronal and sagittal reformats generated. Radiation dose: Total exam DLP = 601.22 mGy-cm. This CT exam was performed using one or more of the following dose reduction techniques: Automated exposure control, adjustment of the mA and/or kV according to patient size, and/or use of iterative reconstruction technique. FINDINGS: BLADDER: Unremarkable. No mass. REPRODUCTIVE ORGANS: Prior hysterectomy VISUALIZED BOWEL: Unremarkable. PERITONEUM: Trace free fluid identified in the pelvis/cul de sac.. No free air. LYMPH NODES: Unremarkable. No enlarged lymph nodes. BONES: Stable findings identified right inferior and superior pubic ramus. Fractures identified on the current CT scan were seen previously and are without interval change. VASCULATURE: Atherosclerotic calcification and mural plaque present. Findings are seen throughout the aorta OTHER FINDINGS: Diffuse edema and anasarca. IMPRESSION: Old pelvic ring fracture on the right. Similar findings, essentially unchanged, identified on prior CT scan 06/05/2015. No acute findings related to/ accounting for the clinical presentation. Additional benign and/or incidental findings described above.
--- NOTE | 2018-02-01 07:17 | CP.PCM.CON ---
History of Present Illness - History of Present Illness History of Present Illness: CONSULT DICTATED S/P SYNCOPE WITH C2 FRACTURE NO MYELOPATHY AND B/B INTACT CONTINUE TO KEEP COLLAR N S CONSULT EEG /BLOOD WORK UP /MRI SPINE AND BRAIN Past Patient History - Infectious Disease Hx of Infectious Diseases: None - Tetanus Immunizations Tetanus Immunization: Unknown - Past Medical History & Family History Past Medical History?: Yes - Past Social History Smoking Status: Never Smoked - CARDIAC Hx Congestive Heart Failure: Yes Hx Hypercholesterolemia: Yes Hx Hypertension: Yes - PULMONARY Hx Asthma: Yes - NEUROLOGICAL Hx Dementia: Yes Hx Seizures: Yes - HEENT Hx HEENT Problems: Yes Other/Comment: +eyeglasses - RENAL Hx Chronic Kidney Disease: Yes - ENDOCRINE/METABOLIC Hx Endocrine Disorders: No - HEMATOLOGICAL/ONCOLOGICAL Hx Human Immunodeficiency Virus (HIV): No - INTEGUMENTARY Hx Dermatological Problems: No - MUSCULOSKELETAL/RHEUMATOLOGICAL Hx Falls: Yes - GASTROINTESTINAL Hx Gastrointestinal Disorders: No - GENITOURINARY/GYNECOLOGICAL Hx Sexually Transmitted Disorders: No - PSYCHIATRIC Hx Substance Use: No - SURGICAL HISTORY Hx Appendectomy: Yes Hx Cholecystectomy: Yes - ANESTHESIA Hx Anesthesia: Yes Hx Anesthesia Reactions: No Hx Malignant Hyperthermia: No Meds Allergies/Adverse Reactions: Allergies Allergy/AdvReac Type Severity Reaction Status Date / Time No Known Allergies Allergy Verified 11/14/17 17:33 - Medications Medications: Current Medications Acetaminophen (Tylenol 325mg Tab) 650 mg PO Q6 PRN PRN Reason: Pain, moderate (4-7) Last Admin: 01/31/18 20:02 Dose: 650 mg Aspirin (Ecotrin) 81 mg PO DAILY [facility] Bisoprolol Fumarate (Zebeta) 5 mg PO DAILY [facility] Cinacalcet (Sensipar) 60 mg PO DAILY [facility] Colchicine (Colocrys) 0.6 mg PO DAILY [facility] Donepezil HCl (Aricept) 5 mg PO HS [facility] Last Admin: 01/31/18 21:43 Dose: 5 mg Escitalopram Oxalate (Lexapro) 5 mg PO TID [facility] Famotidine (Pepcid) 20 mg PO DAILY [facility] Ferrous Sulfate (Feosol) 325 mg PO BID [facility] Hydralazine HCl (Apresoline) 25 mg PO Q8H [facility] Last Admin: 02/01/18 03:38 Dose: 25 mg Influenza Virus Vaccine (Fluzone Quad [id number]) 60 mcg IM .ONCE ONE Stop: 12/08/18 10:01 Levetiracetam (Keppra) 500 mg PO BID [facility] Multivitamins (Hexavitamin) 1 tab PO DAILY [facility] Oxybutynin Chloride (Ditropan Tab) 5 mg PO DAILY [facility] Pneumococcal Polyvalent Vaccine (Pneumovax 23 Vaccine) 0.5 ml IM .ONCE ONE Stop: 02/03/18 10:01 Rosuvastatin Calcium (Crestor) 10 mg PO HS [facility] Last Admin: 01/31/18 21:43 Dose: 10 mg Results - Vital Signs Recent Vital Signs: Last Vital Signs Temp 98.3 F 01/31/18 23:15 Pulse 61 02/01/18 03:40 Resp 20 01/31/18 23:15 BP 159/71 H 02/01/18 03:40 Pulse Ox 98 01/31/18 23:15 - Labs Result Diagrams: 01/31/18 15:30 01/31/18 15:30 Labs: Laboratory Results - last 24 hr 01/31/18 01/31/18 01/31/18 15:30 15:30 15:30 WBC 5.2 RBC 3.95 Hgb 12.6 Hct 38.1 MCV 96.5 D MCH 31.9 H MCHC 33.1 RDW 14.6 H Plt Count 128 L D MPV 8.4 Neut % (Auto) 69.4 Lymph % (Auto) 18.1 L Foster % (Auto) 10.6 H Eos % (Auto) 1.2 Baso % (Auto) 0.7 Neut # (Auto) 3.6 Lymph # (Auto) 0.9 L Foster # (Auto) 0.5 Eos # (Auto) 0.1 Baso # (Auto) 0.0 PT 14.1 H INR 1.3 APTT 50 H Sodium 138 Potassium 4.0 Chloride 102 Carbon Dioxide 26 Anion Gap 14 BUN 37 H Creatinine 1.3 H Est GFR ( Amer) 47 Est GFR (Non-Af Amer) 39 Random Glucose 127 H Calcium 8.6 Total Bilirubin 0.9 AST 39 H D ALT 37 Alkaline Phosphatase 80 Total Creatine Kinase 64 Troponin I 0.0210 Total Protein 6.7 Albumin 4.0 Globulin 2.6 Albumin/Globulin Ratio 1.5 Urine Color Urine Clarity Urine pH Ur Specific [place] Urine Protein Urine Glucose (UA) Urine Ketones Urine Blood Urine Nitrate Urine Bilirubin Urine Urobilinogen Ur Leukocyte Esterase Urine WBC (Auto) Urine RBC (Auto) Ur Squamous Epith Cells Urine Bacteria Hyaline Casts 01/31/18 16:55 WBC RBC Hgb Hct MCV MCH MCHC RDW Plt Count MPV Neut % (Auto) Lymph % (Auto) Foster % (Auto) Eos % (Auto) Baso % (Auto) Neut # (Auto) Lymph # (Auto) Foster # (Auto) Eos # (Auto) Baso # (Auto) PT INR APTT Sodium Potassium Chloride Carbon Dioxide Anion Gap BUN Creatinine Est GFR ( Amer) Est GFR (Non-Af Amer) Random Glucose Calcium Total Bilirubin AST ALT Alkaline Phosphatase Total Creatine Kinase Troponin I Total Protein Albumin Globulin Albumin/Globulin Ratio Urine Color Yellow Urine Clarity Clear Urine pH 5.0 Ur Specific [place] 1.013 Urine Protein 1+ H Urine Glucose (UA) Normal Urine Ketones Negative Urine Blood Negative Urine Nitrate Negative Urine Bilirubin Negative Urine Urobilinogen Normal Ur Leukocyte Esterase Neg Urine WBC (Auto) < 1 Urine RBC (Auto) < 1 Ur Squamous Epith Cells 3 Urine Bacteria Rare Hyaline Casts 0-2
[2018-02-01] MEDS: Multiple Vitamins Tab PO SCH (10:47)
--- NOTE | 2018-02-01 12:18 | MRI ---
Date of service: 02/01/2018 PROCEDURE: MRI BRAIN WITHOUT CONTRAST HISTORY: MASS Vs ISCHEMIA COMPARISON: None available. TECHNIQUE: Multiplanar, multisequence MR images of the brain were obtained without intravenous contrast enhancement. FINDINGS: HEMORRHAGE: No acute parenchymal, subarachnoid nor extra-axial hemorrhage. No evidence of hemosiderin deposition identified on gradient echo weighted sequence. DWI: No evidence of an acute or early subacute infarction seen on diffusion imaging.. BRAIN PARENCHYMA: No mass effect or edema. Mild diffuse and confluent chronic microvascular ischemic changes seen extending from the periventricular into the deep and subcortical regions of both cerebral hemispheres. Multiple more discrete small chronic lacunar-type infarcts also seen scattered about the deep and subcortical white matter, both basal nuclei and brainstem. Moderate generalized volume loss.. VENTRICLES: No obstructive hydrocephalus. CRANIUM: Unremarkable. ORBITS: Previously noted apparent dilated orbital veins bilaterally or possible orbital vein varices less well seen on this study compared to high-resolution CT scan of the orbits. PARANASAL SINUSES/MASTOIDS: Clear VASCULAR SYSTEM: Visualized major vascular flow voids at skull base patent.. OTHER FINDINGS: None. IMPRESSION: Chronic white matter and basal nuclei and brainstem ischemic changes. Moderate generalized volume loss.. Apparent dilated orbital veins bilaterally or possible orbital vein varices less well seen on this study compared to high-resolution CT scan of the orbits.
--- NOTE | 2018-02-01 13:04 | MRI ---
Date of service: 02/01/2018 PROCEDURE: MR CERVICAL SPINE WITHOUT CONTRAST HISTORY: Fracture the COMPARISON: Comparison made with prior CT scan of the cervical spine dated 01/31/2018. TECHNIQUE: Multiecho multiplanar sequences were performed through the cervical spine without the use of intravenous contrast. FINDINGS: Previously noted minimally displaced type 3 odontoid fracture is less well seen on this study as compared to high-resolution CT scan.. Very minimal anterior subluxation C2 over C3. Note is made of a very tiny elliptical shaped( sliver) focus of isointense T1/slightly dark T2 that measures approximately 10.4 mm cc x 1.75 mm AP, just dorsal to the body of C2 within the anterior aspect of the canal possibly representing a tiny amount of epidural blood. This is best seen on series sagittal series 2 image # [id number]. No significant canal compromise nor cord compression noted at this level.. The remaining vertebral bodies otherwise appear intact with no additional acute fracture seen.. The slight chronic appearing anterior stature loss of the C4 and C5 segments felt to be degenerative in origin. Remaining vertebral bodies otherwise exhibit normal stature. Slight straightening and minimal reversal of the upper cervical lordosis however vertebral bodies otherwise exhibit normal alignment common not withstanding the aforementioned slight anterior subluxation body of C2 with respect to C3.. There is also minimal posterior subluxation of C4 over C5 exacerbated in appearance by a osteophyte arising from the posterior inferior corner of the C4 segment. Remaining vertebral bodies otherwise exhibit normal alignment. Craniocervical junction unremarkable. No definitive intrinsic signal changes seen within the visualized spinal cord. Multilevel degenerative spondylosis. There is there is an approximately 17.3 x 15.7 mm elliptical shaped predominantly hyper -intense T2 nodule left lobe thyroid gland for which thyroid ultrasound follow-up is suggested. C2-C3: There is a very slight uncovering of the posterior superior surface of the disc due to the aforementioned minimal anterior subluxation C2 over 3 3. Mild disc desiccation. No disc herniation or significant disc bulge. The facets are hypertrophic right greater than left. Exit foramina appear adequate. C3-C4: Disc desiccation with marked disc space narrowing. Small broad-based disc ridge complex contiguous with mildly hypertrophic uncovertebral joints. Facets also hypertrophic. The central canal appears at adequate despite minor indentation of the ventral surface of the thecal sac. Exit foramina stenotic bilaterally. C4-C5: There is disc desiccation with marked disc space narrowing.. Small to medium-sized broad-based osteophytic ridge disc complex contiguous hypertrophic uncovertebral joints. Facets are hypertrophic as well. The overall central canal appears slightly narrowed. There is mild central canal narrowing and compressive effects on the ventral surface of the spinal cord. Exit foramina are stenotic bilaterally. C5-C6: There is disc desiccation moderate disc space narrowing. Small broad-based disc ridge complex also contiguous with hypertrophic uncovertebral joints. Facets are hypertrophic. The changes result in mild canal narrowing and flattening of the ventral surface of the cord.. Exit foramina stenotic bilaterally due to hypertrophic uncovertebral facets. C6-C7: No there is also moderate disc desiccation disc space narrowing with small broad-based disc bulge ridge complex also contiguous with hypertrophic uncovertebral joints. The facets also hypertrophic.. The disc ridge complex reaches and minimally if at all flattens the ventral surface of the cord however the overall central canal appears adequate. The exit foramina appear narrowed bilaterally.. C7-T1: No disc herniation, spinal canal stenosis or neural foraminal narrowing. OTHER FINDINGS: None. IMPRESSION: Re demonstrated is a minimally displaced type 3 odontoid fracture with very slight anterior subluxation body of C2 with respect to C3. Note is also made of a very tiny elliptical shaped/should sliver of isointense T1 this/slightly dark T2 signal within the anterior aspect of the spinal canal dorsal to the C2 body that probably represents a tiny amount of epidural blood however this focus does not result in significant canal compromise nor cord compression. Multilevel degenerative spondylosis.. These changes most notably affect the exit foramina more so than the central canal; see above discussion for additional details. There is there is an approximately 17.3 x 15.7 mm elliptical shaped predominantly hyper -intense T2 nodule left lobe thyroid gland for which thyroid ultrasound follow-up is suggested.
--- NOTE | 2018-02-01 15:10 | CON ---
DATE: 01/31/2018 ATTENDING PHYSICIAN: Grisel Medeiros MD. LOCATION: The patient's room number 664, bed B. REASON FOR CONSULTATION Status post fall, syncopal attack and cervical vertebral fracture. CHIEF COMPLAINT The patient was brought into [facility] following syncopal attack at home. From the fall, she hurt her neck. From neurological point of view I was called into evaluate her for further management. HISTORY OF PRESENT ILLNESS: Ms. Araceli Dorsey is an 87-year-old right-handed pleasant Amharic-speaking female presenting with some lightheadedness following with fall at home. From the fall, she hurt her neck, orbit, and back. Since the fall she had some mild neck pain, scale of 3-4/10, which is not radicular in nature. No association with arm or leg weakness. No association with sensory dysfunction. No association with bowel and bladder incontinence. She fell down. No similar episodes happened in the past. PAST MEDICAL HISTORY: Arthritis, asthma, heart failure, dementia, DVT, hypertension, dyslipidemia, osteoporosis, chronic kidney disease and seizures. ALLERGIES: NO KNOWN ALLERGIES. REVIEW OF SYSTEMS A 12-point system being reviewed. From neuro, new syncopal attack with cervical vertebral fracture from a CAT scan finding. MEDICATIONS: Apresoline, Aricept, Crestor, Ditropan, aspirin, Feosol. PHYSICAL EXAMINATION: VITAL SIGNS: Blood pressure 159/71, mean artery pressure of 100, respiratory rate 18, pulse rate 61 and regular, temperature 98.3. NECK: Under [place] collar. HEART: Sounds are regular with systolic murmur. EXTREMITIES: No edema. Legs not externally rotated. NEUROLOGIC EXAMINATION: Mental status examination, the patient examined in Amharic. She is oriented to person, place and time. Some retrograde amnesia from the fall. No antegrade amnesia. No confusion. No hallucination. Speech is fluent. Cranial nerve examination, visual field intact. Pupil reactive to light. Extraocular movement normal. No nystagmus. No facial sensory deficit. No facial asymmetry. Hearing is normal. Tongue is midline. Good gag. Motor examination, outstretched hand with eyes closed, no drift noted. Power is symmetric on either side. She could able to lift both the lower extremities against the gravity. Deep tendon reflexes absent. Plantars are downgoing. Sensory examination. No sensory level. Position sense is intact. Mildly distal sensory motor neuropathy noted. Coordination: [id number] test is intact. Gait is deferred at this time because of her fall. CONCLUSION: Ms. Dorsey as per neurological examination presenting with syncopal attack with fall, fractured her cervical vertebra. The current examination does not show any evidence of myelopathy from the from the fracture. Seems to be intact spinal cord and roots. The patient's syncopal attack which is unexplained that needs to be worked up to rule out any neurological cause related to her problem. Blood workup, WBC 5.2, hemoglobin 12.6, hematocrit 38.1, platelet 128. PT 14.1, INR 1.3, PTT 50. Sodium 138, potassium 4, chloride 102, bicarbonate 26, BUN 37, creatinine 1.3 and calcium 8.6, troponin 0.0210. Urine shows 1+ proteinuria. CT of the cervical spine showed vertebral fracture without any cord impingement. CT of pelvis, old pelvic fracture the right side. CT of the orbit and facial bone showed small soft tissue swelling over the right facial area. Rest of the findings are normal. RECOMMENDATIONS: 1. Keep her on Iredell collar for now. 2. MRI of the cervical spine to rule out any cord impingement. 3. Neurosurgical consult is recommended. The patient does not show any evidence of myelopathy at present. No indication for steroids. 4. The patient needs electroencephalogram to rule out any paroxysmal activities could be related to her seizures. The patient also recommended to have MRI of the brain to rule out any the central nervous system disorder could explain her to syncopal attack. The patient will be followed while she is in the hospital. Kenny Casiano MD
--- NOTE | 2018-02-01 22:11 | CARD ---
APPROVED REPORT Date of service: 01/31/2018 EKG Measurement Heart [id number] <Conclusion> Normal sinus rhythm Left axis deviation Left bundle branch block Abnormal ECG
--- NOTE | 2018-02-02 01:54 | HP ---
HISTORY OF PRESENT ILLNESS: This is an 87-year-old female with history of multiple medical problems, presented to emergency room after a fall with neck pain and pelvic pain. The patient was evaluated in emergency room, and she was found to have minimally displaced type 3 odontoid fracture with very slight anterior subluxation body of C2 with respect to C3. The patient also had evidence of tiny amount of epidural blood at the cervical thoracic area; however, this does not result in significant canal compromise nor cord compression. The patient also was found to have multilevel degenerative spondylosis. The patient was admitted for further management. The patient had the fall after stating that while she was walking felt dizzy and lost her footing and balance. REVIEW OF SYSTEMS: Other review of system is negative. ALLERGIES: NO KNOWN ALLERGY. MEDICATIONS: Reviewed and ordered as per [facility] SOCIAL HISTORY: No history of smoking, EtOH, or substance abuse. FAMILY HISTORY: Not contributory. PAST MEDICAL HISTORY: Hypertension, osteoarthritis, hyperparathyroidism, hypercalcemia. PHYSICAL EXAMINATION: GENERAL: The patient is in bed, not in any cardiopulmonary distress. VITAL SIGNS: Blood pressure 159/71, temperature 97.4, respiratory rate 18, and pulse 60. HEENT: Pupils equal and reactive to light. Normal-appearing mucosa of the conjunctivae, oropharynx, and nasal membrane mucosa. NECK: Supple. The patient has a collar with inability to examine the neck at this point. No thyromegaly. CHEST AND LUNGS: Bilateral symmetrical expansion. Good air exchange. No rales, no rhonchi. CARDIOVASCULAR SYSTEM: PMI not localized. S1, S2. No additional sounds. ABDOMEN: Normoactive bowel sounds. No tenderness. No organomegaly. No masses. EXTREMITIES: No cyanosis, no clubbing, no edema. CENTRAL NERVOUS SYSTEM: Alert, awake, oriented x2. No neurological deficit could be appreciated. ASSESSMENT: 1. Fall with C-spine fracture. 2. Old pelvic flat bone fracture. 3. Hypertension. 4. Hyperparathyroidism. 5. Hypercalcemia. 6. Osteoarthritis. PLAN: Pain management. Continue using a V-collar to prevent further worsening of the C-spine fracture, neurosurgical consult and follow the recommendations. Resume the patient's home medications. Physical therapy as allowed by Neurosurgery. Grisel Medeiros MD [facility] # [id number]
--- NOTE | 2018-02-02 07:08 | CON ---
DATE: 02/01/2018 REASON FOR CONSULTATION: Fracture of C-spine. HISTORY OF PRESENT ILLNESS: The patient is an 87-year-old elderly lady that sustained a syncopal episode and fell. She is bruised on the front and right side of her face and head. She is complaining of pain in the right side of her neck. She was brought to the emergency room. A CAT scan showed a fracture of C2. She was placed in a [place] J collar and admitted. She denies any issues with her arms or legs. She is only complaining of pain in the right side of her neck. PAST MEDICAL HISTORY: Significant for asthma, CHF, dementia, hypertension, hypercholesterolemia, chronic kidney disease and a seizure disorder. She has a history of a DVT to the right leg. MEDICATIONS: As listed on the chart. ALLERGIES: SHE HAS NO KNOWN ALLERGIES. PAST SURGICAL HISTORY: Significant for an appendectomy and cholecystectomy in the past. SOCIAL HISTORY: She denies smoking or alcohol intake. PHYSICAL EXAMINATION: On exam, she is very tender on the trapezium muscles in the right side of the neck. She is not tender at all to palpation of the cervical spinous processes. She moves both upper and lower extremities actively. Grossly, neurologic exam appears to be intact. She is presently in a [place] J collar. DIAGNOSTIC STUDIES: CAT scan and MRI reviewed, shows what appears to be roughly a type 3 minimally to nondisplaced odontoid fracture. It seems to extend to the left lateral mass but again, everything appears to be in good position. The reading is that there a little anterior slippage of C2 on C3, but I am sure that predated the fracture as there does not appear to be any evidence on the studies of any acute ligamentous injury. IMPRESSION: Type 3 odontoid fracture. These tend to heal very well given the cancellous nature and increased blood supply to allow healing. I would maintain her in the [place] J collar for 4 weeks and then switch to a soft collar. We should get an x-ray may be once a week for the first 2 weeks to be certain she is maintaining alignment and then once a month after that. She can be mobilized as she feels comfortable pending her medical cardiology workups. Thank you for allowing me to participate in the care of your patient. Bennie Snyder MD [facility] # [id number]
[2018-02-02] MEDS: Multiple Vitamins Tab PO SCH (09:23)
[2018-02-02] MEDS: cefTRIAXone IV 1 gm in Dextros 50 ML IVPB SCH (11:12)
--- NOTE | 2018-02-02 12:26 | PN ---
DATE: 02/02/2018 TIME OF EVALUATION: 07:15 a.m. NEUROLOGICAL PROBLEM: Syncopal episode, posttraumatic vertebral fracture in C2. PHYSICAL EXAMINATION: VITAL SIGNS: Blood pressure 160/61, mean arterial pressure 94, respiratory rate 18, temperature 98.5, pulse rate 68 and regular. GENERAL: The patient comfortable and lying in the bed. No new complaints. Still under the hard collar. The patient was seen by Dr. Snyder. The patient was advised to continue [place] collar for four weeks, followed with a soft collar. The patient did not show any myelopathy as per examination. The patient's prolactin level was high, which could be possible seizures (syncope). The patient's recommended electroencephalogram still pending. In the meantime, we will continue the present management. Kenny Casiano MD
[2018-02-03] MEDS ORDERED: Pneumococcal 23-Valent Vaccine IM ONE (10:00)
[2018-02-03] MEDS ORDERED: Influenza Vaccine 60 MCG/0.5 ML SYR (3 yr & up) IM ONE (10:00)
[2018-02-03] MEDS: Multiple Vitamins Tab PO SCH (10:30)
[2018-02-03] MEDS: cefTRIAXone IV 1 gm in Dextros 50 ML IVPB SCH (11:06)
--- NOTE | 2018-02-04 02:06 | PN ---
DATE: 02/02/2018 SUBJECTIVE: The patient was seen on 02/02/2018. She was not in any cardiopulmonary distress. PHYSICAL EXAMINATION: VITAL SIGNS: Blood pressure was 171/71, temperature 98.7, respiratory rate 18, and pulse 71. HEENT: Pupils equal, reactive to light. Normal-appearing mucosa of the conjunctivae, oropharynx, and nasal membrane mucosa. NECK: Supple. No JVD. No carotid bruit. No lymph node. No thyromegaly. CHEST AND LUNGS: Bilateral symmetrical expansion. Good air exchange. No rales. No rhonchi. CARDIOVASCULAR SYSTEM: PMI not localized. S1, S2. No additional sounds. ABDOMEN: Normoactive bowel sounds. No tenderness. No organomegaly. No masses. EXTREMITIES: No cyanosis, no clubbing, no edema. CENTRAL NERVOUS SYSTEM: Alert, awake, oriented x2. No neurological deficit could be appreciated. ASSESSMENT: Fall with cervical spine fracture, hypertension, osteoarthritis, hypercalcemia, hyperparathyroidism. PLAN: Continue with the color usage physical therapy. Continue pain management and antihypertensive medications. Grisel Medeiros MD
--- NOTE | 2018-02-04 02:09 | PN ---
DATE: 02/03/2018 SUBJECTIVE: The patient is seen today, 02/03/2018. She is not in any cardiopulmonary distress. PHYSICAL EXAMINATION: VITAL SIGNS: Blood pressure 158/64, temperature 98.3, respiratory rate 20, and pulse 68. HEENT: Pupils equal, reactive to light. Normal-appearing mucosa of the conjunctivae, oropharynx, and nasal membrane mucosa. NECK: Supple. No JVD. No carotid bruit. No lymph node. No thyromegaly. CHEST AND LUNGS: Bilateral symmetrical expansion. Good air exchange. No rales. No rhonchi. CARDIOVASCULAR SYSTEM: PMI not localized. S1, S2. No additional sounds. ABDOMEN: Normoactive bowel sounds. No tenderness. No organomegaly. No masses. EXTREMITIES: No cyanosis, no clubbing, no edema. CENTRAL NERVOUS SYSTEM: Alert, awake, oriented x2. No neurological deficit could be appreciated. ASSESSMENT: Fall with cervical spine fracture, hypertension, osteoarthritis. PLAN: Continue current pain management and current medications and physical therapy, and plan to discharge to subacute rehabilitation. Grisel Medeiros MD
[2018-02-04] MEDS: Multiple Vitamins Tab PO SCH (10:07)
[2018-02-04] MEDS: cefTRIAXone IV 1 gm in Dextros 50 ML IVPB SCH (10:09)
--- NOTE | 2018-02-04 20:11 | PN ---
DATE: 02/04/2018 SUBJECTIVE: The patient is seen today, 02/04/2018. She is still in need for pain medications and the patient is using the collar all the time. PHYSICAL EXAMINATION: VITAL SIGNS: Blood pressure 157/70, temperature 97.6, respiratory rate 18 and pulse 56. HEENT: Pupils equal, reactive to light. Normal-appearing mucosa of the conjunctivae, oropharynx and nasal membrane mucosa. NECK: Supple. No JVD. No carotid bruit. No lymph node. No thyromegaly. CHEST AND LUNGS: Bilateral symmetrical expansion. Good air exchange. No rales, no rhonchi. CARDIOVASCULAR: PMI not localized. S1, S2. No additional sounds. ABDOMEN: Normoactive bowel sounds. No tenderness. No organomegaly. No masses. EXTREMITIES: No cyanosis, no clubbing, no edema. In the lower extremity, the patient has +1 edema. CENTRAL NERVOUS SYSTEM: Alert, awake, oriented x2. No neurological deficit could be appreciated. ASSESSMENT: Status post fall with cervical spine fracture, hypertension, osteoarthritis, primary hyperparathyroidism with hypercalcemia. PLAN: Continue pain management, physical therapy and we will add Lasix 20 mg daily. Plan to discharge to subacute rehabilitation. Grisel Medeiros MD
[2018-02-05] MEDS: Multiple Vitamins Tab PO SCH (09:06)
--- NOTE | 2018-02-05 09:46 | PN ---
DATE: 02/05/2018 TME OF EVALUATION: 6:20 a.m. NEUROLOGICAL PROBLEM: Posttraumatic cervical-vertebral fracture. PHYSICAL EXAMINATION: VITAL SIGNS: Blood pressure 164/74, mean arterial pressure 104, respiratory rate 18, temperature 98.5, pulse rate 67. GENERAL: The patient is under a [place] collar, hard collar. NEUROLOGIC: Examination as stated above. No evidence of myelopathy or cord compression. She moves all 4 extremities against gravity. Deep tendon reflexes are intact. Plantars are downgoing. ASSESSMENT AND PLAN: The patient is neurologically stable at present. If medically stable, the patient can be discharged to rehabilitation and collar continues to be placed as per spinal surgeon. From a neurologic point of view, the patient is stable. I will be signing off from neurological followup. If any change in neurologic status, do not hesitate to consider me to follow up examination. Kenny Casiano MD
[2018-02-05] MEDS: cefTRIAXone IV 1 gm in Dextros 50 ML IVPB SCH (10:39)
[2018-02-05 14:22] LABS: BASO % 1.1 % (0.0-2.0); EOS # 0.1 K/uL (0.0-0.7); EOS % 3.4 % (0.0-4.0); LYMPH # 0.7 K/uL (1.0-4.3); LYMPH % 17.9 % (20.0-40.0); MEAN CELL VOLUME 98.2 fL (81.0-99.0); MEAN CORPUSCULAR HEMOGLOBIN 32.2 pg (27.0-31.0); MEAN CORPUSCULAR HGB CONC 32.8 g/dL (33.0-37.0); MEAN PLATELET VOLUME 8.7 fL (7.2-11.7); MONO # 0.4 K/uL (0.0-0.8); MONO % 11.8 % (0.0-10.0); NEUT # 2.4 K/uL (1.8-7.0); NEUT % 65.8 % (50.0-75.0); NRBC % 0.1 % (0.0-2.0); RBC 3.73 Mil/uL (3.80-5.20); RED CELL DISTRIBUTION WIDTH 14.1 % (11.5-14.5); WHITE BLOOD COUNT 3.7 K/uL (4.8-10.8)
[2018-02-05 14:42] LABS: BLOOD UREA NITROGEN 23 mg/dL (7-17); CALCIUM 8.6 mg/dl (8.6-10.4); GFR NON-AFRICAN AMERICAN 52
--- NOTE | 2018-02-06 00:55 | PN ---
DATE: 02/05/2018 DAILY PROGRESS NOTE SUBJECTIVE: The patient is seen today, 02/05/2018. She is still having the hard collar, and the pain is controlled. PHYSICAL EXAMINATION: VITAL SIGNS: Blood pressure is 169/76, temperature 97.7, respiratory rate 20 and pulse 65. HEENT: Pupils equal and reactive to light. Normal-appearing mucosa of the conjunctivae, oropharynx and nasal membrane mucosa. NECK: Supple. No JVD. No carotid bruit. No lymph node. No thyromegaly. CHEST AND LUNGS: Bilateral symmetrical expansion. Good air exchange. No rales. No rhonchi. CARDIOVASCULAR SYSTEM: PMI not localized. S1 and S2. No additional sounds. ABDOMEN: Normoactive bowel sounds. No tenderness. No organomegaly. No masses. EXTREMITIES: No cyanosis, no clubbing, no edema. CENTRAL NERVOUS SYSTEM: Alert, awake, oriented x2. No neurological deficit could be appreciated. ASSESSMENT: Status post fall with cervical spine fracture, hypertension, hyperparathyroidism, hypercalcemia, osteoarthritis. PLAN: Continue current medications, pain management and physical therapy. The patient is for discharge to subacute rehabilitation. Grisel Medeiros MD
[2018-02-06] MEDS: Multiple Vitamins Tab PO SCH (09:06)
[2018-02-06] MEDS: cefTRIAXone IV 1 gm in Dextros 50 ML IVPB SCH (11:00)
--- NOTE | 2018-02-07 02:44 | EEG ---
DATE: 02/06/2018 This is a 16-channel electroencephalogram of awake and drowsy adult. During the study, photic stimulation was performed. Hyperventilation was not performed. There were paroxysmal activities noted at right central region followed with slow activities. The photic stimulation did not evoke driving response noted at 2 to 20 Hz. IMPRESSION: This is an abnormal electroencephalogram of focal paroxysmal activities noted at right central region consistent with epileptiform focus. Please correlate the findings with the neurological and the radiological studies. Kenny Casiano MD
[2018-02-07] MEDS: cefTRIAXone IV 1 gm in Dextros 50 ML IVPB SCH (10:30)
[2018-02-07] MEDS: Multiple Vitamins Tab PO SCH (10:30)
--- NOTE | 2018-02-07 16:02 | PN ---
DATE: 02/06/2018 SUBJECTIVE: The patient is seen today, 02/06/2018. Her pain is controlled and the patient was changed to soft collar. PHYSICAL EXAMINATION: VITAL SIGNS: Blood pressure is 155/70, temperature 97.7, respiratory rate 20, and pulse 80. HEENT: Pupils equal and reactive to light. Normal-appearing mucosa of the conjunctivae, oropharynx, and nasal membrane mucosa. NECK: Neck is in collar. CHEST AND LUNGS: Bilateral symmetrical expansion. Good air exchange. No rales. No rhonchi. CARDIOVASCULAR SYSTEM: PMI not localized. S1 and S2. No additional sounds. ABDOMEN: Normoactive bowel sounds. No tenderness. No organomegaly. No masses. EXTREMITIES: No cyanosis, no clubbing, no edema. TICKET TAKER FERRYBOAT: Alert, awake, and oriented x2. No neurological deficit could be appreciated. ASSESSMENT: Fall with cervical spine fracture, hypertension, hyperparathyroidism, hypercalcemia, and osteoarthritis. PLAN: Continue current medications as well as antihypertensive medications. Follow Neurosurgery recommendations. We will order cervical spine x-ray. Continue physical therapy. The patient is for discharge planning to subacute rehabilitation. [facility] Medeiros MD
--- NOTE | 2018-02-07 22:31 | PN ---
DATE: 02/07/2018 SUBJECTIVE: The patient is seen today, 02/07/2018. She has a soft collar. PHYSICAL EXAMINATION: VITAL SIGNS: Blood pressure 176/84, temperature 97.7, respiratory rate 20 and pulse 64. HEENT: Pupils equal, reactive to light. Normal appearing mucosa of the conjunctivae, oropharynx and nasal membrane mucosa. NECK: Supple. No JVD. No carotid bruit. No lymph node. No thyromegaly. CHEST AND LUNGS: Bilateral symmetrical expansion. Good air exchange. No rales, no rhonchi. CARDIOVASCULAR: PMI not localized. S1 and S2. No additional sounds. ABDOMEN: Normoactive bowel sounds. No tenderness. No organomegaly. No masses. EXTREMITIES: No cyanosis, no clubbing, no edema. CENTRAL NERVOUS SYSTEM: Alert, awake, oriented x2. Moves all extremities equally. ASSESSMENT: Status post fall with fracture of cervical spine, hypertension, hyperparathyroidism, hypercalcemia. PLAN: Continue current medications and follow the x-ray of the cervical spine ordered. [facility]
[2018-02-08] MEDS: Multiple Vitamins Tab PO SCH (10:30)
--- NOTE | 2018-02-08 17:06 | CT ---
Date of service: 02/08/2018 PROCEDURE: CT Cervical Spine without contrast HISTORY: C2 fracture/re-eval of cervical fracture COMPARISON: Bhavani in made with prior CT scan cervical spine 02/01/2018. Correlation also made with MRI of the cervical spine 02/01/2018 TECHNIQUE: Axial computed tomography images were obtained of the cervical spine without the use of intravenous contrast. Coronal and sagittal reformatted images were created and reviewed. Radiation dose: Total exam DLP = 434.83 mGy-cm. This CT exam was performed using one or more of the following dose reduction techniques: Automated exposure control, adjustment of the mA and/or kV according to patient size, and/or use of iterative reconstruction technique. FINDINGS: VERTEBRAE: Current study read demonstrates a minimally displaced type 3 fracture of the odontoid.. Minimal anterior subluxation C2 over C3 however the facet joints are adequately aligned. Previously noted tiny suspected tiny epidural hematoma is not appreciated on this study we as compared to high-resolution MRI of the cervical spine The there is also slight straightening of the normal upper cervical lordosis with minimal reversal centered at the C3-C4 level. DISCS/SPINAL CANAL/NEURAL FORAMINA: Multilevel degenerative which has been described in detail on both prior CT scan and cervical spine studies. PARASPINAL SOFT TISSUES: Small amount of residual prevertebral soft tissue swelling remains. OTHER FINDINGS: None. IMPRESSION: No significant interval change in the appearance of a minimally displaced type 3 odontoid fracture. Persistent slight anterior subluxation C2 over through C3.. Multilevel degenerative spondylosis which has been described in detail on prior CT scan and MRI studies.
--- NOTE | 2018-02-09 01:50 | PN ---
DATE: 02/08/2018 SUBJECTIVE: The patient is seen today, 02/08/2018. PHYSICAL EXAMINATION: GENERAL: She is not in any cardiopulmonary distress. VITAL SIGNS: Blood pressure 159/68, temperature 98.3, respiratory rate 18, and pulse 64. HEENT: Pupils equal, reactive to light. Normal-appearing mucosa of the conjunctivae, oropharynx and nasal membrane mucosa. NECK: Supple. No JVD. No carotid bruit. No lymph node. No thyromegaly. CHEST AND LUNGS: Bilateral symmetrical expansion. Good air exchange. No rales, no rhonchi. CARDIOVASCULAR SYSTEM: PMI not localized. S1, S2. No additional sounds. ABDOMEN: Normoactive bowel sounds. No tenderness. No organomegaly. No masses. EXTREMITIES: No cyanosis, no clubbing, no edema. CENTRAL NERVOUS SYSTEM: Alert, awake, oriented x2. No neurological deficit could be appreciated. LABORATORY DATA: A repeated CAT scan showed no significant interval change in the appearance of a minimally displaced type 3 odontoid fracture with posterior-slight anterior subluxation of C2 over C3. ASSESSMENT: Fall with cervical spine fracture, hypertension, osteoarthritis, hyperparathyroidism, hypercalcemia. PLAN: Continue pain management. Continue the collar support of the neck and physical therapy, and the patient is for discharge to subacute rehabilitation. Continue current medications. Grisel Medeiros MD
[2018-02-09] MEDS: Multiple Vitamins Tab PO SCH (12:40)
[2018-02-10] MEDS: Multiple Vitamins Tab PO SCH (10:30)
--- NOTE | 2018-02-10 21:23 | PN ---
DATE: 02/10/2018 SUBJECTIVE: She was feeling dizzy as she was standing up. PHYSICAL EXAMINATION: VITAL SIGNS: Blood pressure 165/74, temperature 98, respiratory rate 20 and pulse 63. HEENT: Pupils equal, reactive to light. Normal-appearing mucosa of the conjunctiva, oropharynx and nasal membrane mucosa. NECK: Supple. No JVD. No carotid bruit. No lymph node. No thyromegaly. CHEST AND LUNGS: Bilateral symmetrical expansion. Good air exchange. No rales, no rhonchi. CARDIOVASCULAR: PMI not localized. S1, S2. No additional sounds. ABDOMEN: Normoactive bowel sounds. No tenderness. No organomegaly. No masses. EXTREMITIES: No cyanosis, no clubbing, no edema. CENTRAL NERVOUS SYSTEM: Alert, awake, oriented x2, moves all extremities equally. ASSESSMENT: 1. Cervical spine fracture, on soft collar. 2. Hypertension. 3. Osteoarthritis. 4. Primary hyperparathyroidism. 5. Hypercalcemia. PLAN: Continue current medications and management and the patient is for physical therapy and discharged to subacute rehabilitation. Advised to have physical therapy twice daily. Grisel Medeiros MD
[2018-02-11] MEDS: Multiple Vitamins Tab PO SCH (09:54)
[2018-02-11 23:12] VITALS: RESP 20
--- NOTE | 2018-02-12 10:01 | PN ---
DATE: 02/09/2018 SUBJECTIVE: She was not in any cardiopulmonary distress. PHYSICAL EXAMINATION: VITAL SIGNS: Blood pressure was 132/65, temperature 98.3, respiratory rate 20 and pulse 60. HEENT: Pupils equal, reactive to light. Normal-appearing mucosa of the conjunctivae, oropharynx and nasal membrane mucosa. NECK: Supple. No JVD. No carotid bruit. No lymph node. No thyromegaly. CHEST AND LUNGS: Bilateral symmetrical expansion. Good air exchange. No rales, no rhonchi. CARDIOVASCULAR: PMI not localized. S1, S2. No additional sounds. ABDOMEN: Normoactive bowel sounds. No tenderness. No organomegaly. No masses. EXTREMITIES: No cyanosis, no clubbing, no edema. CENTRAL NERVOUS SYSTEM: Alert, awake, oriented x2. No neurological deficit could be appreciated. LABORATORY DATA: Repeated CT scan showed that there is no interval change of the cervical spine fracture that was detected in an area of CT scan. ASSESSMENT: 1. Fall with cervical spine fracture. 2. Hypertension. 3. Osteoarthritis. PLAN: Continue current medications and physical therapy and pain management as needed and the patient is for discharge to subacute rehabilitation. Grisel Medeiros MD
--- NOTE | 2018-02-12 10:01 | PN ---
DATE: 02/11/2018 SUBJECTIVE: The patient is seen today, 02/11/2018. She is not in any cardiopulmonary distress. OBJECTIVE: VITAL SIGNS: Blood pressure 180/79, temperature 98.7, respiratory rate 18 and pulse 67. HEENT: Pupils equal and reactive to light. Normal-appearing mucosa of the conjunctivae, oropharynx and nasal membrane mucosa. NECK: Supple. No JVD. No carotid bruit. No lymph node. No thyromegaly. CHEST AND LUNGS: Bilateral symmetrical expansion. Good air exchange. No rales. No rhonchi. CARDIOVASCULAR SYSTEM: PMI not localized. S1, S2. No additional sounds. ABDOMEN: Normoactive bowel sounds. No tenderness. No organomegaly. No masses. EXTREMITIES: No cyanosis. No clubbing. No edema. WEIGHT ANALYST: Alert, awake, oriented x2. No neurological deficits could be appreciated. ASSESSMENT: Status post fall with cervical spine fracture, hypertension and osteoarthritis. PLAN: Continue current physical therapy and pain management. Continue antihypertensive medications. The patient is for discharge to subacute rehabilitation. Grisel Medeiros MD
[2018-02-12] MEDS: Multiple Vitamins Tab PO SCH (10:22)
[2018-02-12 11:13] LABS: HEMOGLOBIN 12.8 g/dL (11.0-16.0); MEAN CORPUSCULAR HEMOGLOBIN 32.2 pg (27.0-31.0); MEAN CORPUSCULAR HGB CONC 33.2 g/dL (33.0-37.0); RBC 3.99 Mil/uL (3.80-5.20); RED CELL DISTRIBUTION WIDTH 13.4 % (11.5-14.5); WHITE BLOOD COUNT 3.6 K/uL (4.8-10.8)
[2018-02-12 11:14] LABS: BASO % 1.2 % (0.0-2.0); EOS # 0.2 K/uL (0.0-0.7); EOS % 4.4 % (0.0-4.0); LYMPH # 0.8 K/uL (1.0-4.3); MEAN PLATELET VOLUME 8.1 fL (7.2-11.7); MONO # 0.4 K/uL (0.0-0.8); MONO % 10.2 % (0.0-10.0); NEUT # 2.3 K/uL (1.8-7.0); NEUT % 63.2 % (50.0-75.0); NRBC % 0.1 % (0.0-2.0)
[2018-02-12 11:25] LABS: BLOOD UREA NITROGEN 19 mg/dL (7-17); CALCIUM 9.4 mg/dl (8.6-10.4); GFR NON-AFRICAN AMERICAN 59
[2018-02-12 17:13] VITALS: BP 175/66; PULSE 60; TEMP 97.9; O2SAT 96
--- NOTE | 2018-02-13 15:12 | DS ---
REASON FOR ADMISSION: This is a 87-year-old female with history of multiple medical problems was admitted after a fall and fracture of the cervical spine. COURSE OF HOSPITALIZATION: The patient was admitted to medical floor and she had a neurosurgery consult done by Dr. Rodarte. The patient was kept in a hard collar first that was switched to soft collar. The patient did well and she was started on physical therapy to which the patient was compliant. The patient was continued on her medications while she was in the hospitalization and she was discharged to subacute rehabilitation at [place] in a stable condition. Pain also was been controlled. ASSESSMENT; 1. Fall with fracture of the cervical spine that has been treated conservatively. 2. Hypertension. 3. Osteoarthritis. 4. Hyperparathyroidism. 5. Hypercalcemia. [facility] MD Waldemar
== END 2018-02-12 17:59 | DRG 552 ==
LOC: C.ER 14:56 → C.9E 17:18 → C.6T 17:39
PROVIDERS: ADMIT Internal Medicine; ATTEND Internal Medicine
DX: S12.100A Unspecified displaced fracture of second cervical vertebra, initial encounter for closed fracture (principal); S00.83XA Contusion of other part of head, initial encounter; R55 Syncope and collapse; I13.0 Hypertensive heart and chronic kidney disease with heart failure and stage 1 through stage 4 chronic kidney disease, or unspecified chronic kidney disease; N18.9 Chronic kidney disease, unspecified; S32.9XXS Fracture of unspecified parts of lumbosacral spine and pelvis, sequela; W01.0XXA Fall on same level from slipping, tripping and stumbling without subsequent striking against object, initial encounter; E21.0 Primary hyperparathyroidism; M81.0 Age-related osteoporosis without current pathological fracture; F03.90 Unspecified dementia, unspecified severity, without behavioral disturbance, psychotic disturbance, mood disturbance, and anxiety; G40.909 Epilepsy, unspecified, not intractable, without status epilepticus; I50.9 Heart failure, unspecified; J45.909 Unspecified asthma, uncomplicated; M47.9 Spondylosis, unspecified; S12.110A Anterior displaced Type II dens fracture, initial encounter for closed fracture; E78.5 Hyperlipidemia, unspecified; E83.52 Hypercalcemia; M19.90 Unspecified osteoarthritis, unspecified site; E78.00 Pure hypercholesterolemia, unspecified; Z86.718 Personal history of other venous thrombosis and embolism; Z90.49 Acquired absence of other specified parts of digestive tract

== ENCOUNTER 2018-06-03 17:25 | Inpatient (IN) | payer MEDICARE, OTHER ==
[2018-06-03 17:26] VITALS: BMI 42.7
[2018-06-03] MEDS ORDERED: Vancomycin 1 gm/NS 200 ml 1 GM/200 ML BAG IVPB STA (17:41)
[2018-06-03] MEDS ORDERED: Piperacillin/Tazobact 3.375 GM in Sodium Chloride 100 ML IVPB STA (17:47)
--- NOTE | 2018-06-03 17:47 | C.PDOC ---
History Of Present Illness 87 years old female brought to ED from [facility] for altered mental status since 2 weeks ago. As per half-way chart, patient has been lethargic, has poor appetite, and coughing. Patient has a PMHx of dementia/Alzh eimer, ESRD, HTN, and anxiety. Patient of Dr. Medeiros [facility]. Time Seen by Provider: 06/03/18 17:35 Chief Complaint (Nursing): Altered Mental Status History Per: EMS History/Exam Limitations: Clinical Condition Onset/Duration Of Symptoms: Hrs Current Symptoms Are (Timing): Still Present Usual Baseline: Unknown (Non verbal, hypoxic, unclear baseline ) Exacerbating Factor(s): Unknown Use Of Anticoag/Antiplatelets: No Recent travel outside of the [place]: No Past Medical History Reviewed: Historical Data, Nursing Documentation, Vital Signs Vital Signs: Last Vital Signs Temp 99.7 F H 06/03/18 17:33 Pulse 67 06/03/18 17:33 Resp 20 06/03/18 17:33 BP 164/63 H 06/03/18 17:33 Pulse Ox 87 L 06/03/18 17:33 - Medical History PMH: Arthritis, Asthma, CHF, Dementia, Deep Vein Thrombosis (rt leg), Fractures, HTN, Hypercholesterolemia, Hyperlipidemia, Osteoporosis, Chronic Kidney Disease, Seizures Denies: Diabetes, Hepatitis, HIV, Sexually Transmitted Disease Surgical History: Appendectomy, Cholecystectomy - [facility] GROUP PSYCHOTHERAPY (10/11/16) INTRODUCE OF OTH THERAP SUBST INTO RESP TRACT, VIA OPENING (05/24/17) OCCUPATIONAL THERAPY (12/19/13) PHYSICAL THERAPY NEC (12/19/13) RECREATIONAL THERAPY (12/19/13) Family History: States: Unknown Family Hx - Social History Hx Tobacco Use: No Hx Alcohol Use: No Hx Substance Use: No - Immunization History Hx Tetanus Toxoid Vaccination: No Hx Influenza Vaccination: No Hx Pneumococcal Vaccination: No Review Of Systems Review Of Systems: ROS cannot be obtained secondary to pt's inabilty to answer questions. (Due to clinical condition) Skin: Negative for: Rash Neurological: Negative for: Weakness, Numbness Physical Exam - Physical Exam Appears: Non-toxic, No Acute Distress, Other (Resting Tremor. ) Skin: Normal Color, Warm, Dry, No Rash, Other (Bruising to hands. ) Head: Atraumatic, Normacephalic Eye(s): bilateral: Normal Inspection, PERRL, EOMI Oral Mucosa: Moist Neck: Normal ROM, Supple Chest: Symmetrical, No Tenderness Cardiovascular: Rhythm Regular, No Murmur Respiratory: No Decreased Breath Sounds, No Rales, No Rhonchi, No Wheezing, Other (rhonchorous Coughing with phlegm) Gastrointestinal/Abdominal: Bowel Sounds (Active ), Soft, No Tenderness, No Guarding, No Rebound Extremity: Normal ROM, No Pedal Edema Extremity: Bilateral: Atraumatic, Normal Color And Temperature, Normal ROM Pulses: Left Radial: Normal, Right Radial: Normal Neurological/Psych: Other (No focal deficits. Not responding to questions. Opening eyes in response to pain. ) ED Course And Treatment - Laboratory Results Result Diagrams: 06/03/18 18:20 06/03/18 18:20 O2 Sat by Pulse Oximetry: 87 (RA) Pulse Ox Interpretation: Abnormal - Other Rad CXR X-Ray: Viewed By Me, Read By Radiologist Interpretation: IMPRESSION: Possible infiltrate or consolidation at the left lower lobe/retrocardiac region may represent pneumonia. Medical Decision Making Medical Decision Making: Plan: * EKG * Blood Gas * EKG * Blood work * CXR * Blood Culture * Urine Culture * Urinalysis * Zosyn/Sodium Chloride bag * Vancomycin 18:35: * Discussed case with Marcus Ferreira * Patient is Afib, lactate only 1, altered mentation, hypoxic, and has a rhonchorous cough * Differentials included pneumonia, so will admit patient for pneumonia. Disposition Discussed With : Grisel Medeiros - Disposition Disposition: HOSPITALIZED Disposition Time: 18:33 Condition: GUARDED Forms: [facility] (Dominican) - POA Present On Arrival: None - Clinical Impression Clinical Impression: Pneumonia, Hypoxia - Scribe Statement The provider has reviewed the documentation as recorded by the Shankaribe Juma Cummings All medical record entries made by the Shankaribmary were at my direction and personally dictated by me. I have reviewed the chart and agree that the record accurately reflects my personal performance of the history, physical exam, medical decision making, and the department course for this patient. I have also personally directed, reviewed, and agree with the discharge instructions and disposition. Decision To Admit - Pt Status Changed To: Hospital Disposition Of: Inpatient - Admit Certification Admit to Inpatient:: After my assessment, the patient will require hospitalization for at least two midnights. This is because of the severity of symptoms shown, intensity of services needed, and/or the medical risk in this patient being treated as an outpatient. - InPatient: Physician Admission Certification:: pneumonia, possible sepsis - . Bed Request Type: Telemetry Admitting Physician: Grisel Medeiros Patient Diagnosis: Pneumonia, Hypoxia
--- NOTE | 2018-06-03 18:06 | RAD ---
Date of service: 06/03/2018 HISTORY: Sepsis Patient COMPARISON: Comparison is made with 01/31/2018 TECHNIQUE: 1 view obtained. FINDINGS: LUNGS: Suspicious for focal opacity at the left lower lobe retrocardiac region. The possibility of pneumonia should be considered. PLEURA: No significant pleural effusion identified, no pneumothorax apparent. CARDIOVASCULAR: No aortic atherosclerotic calcification present. Normal cardiac size. No pulmonary vascular congestion. OSSEOUS STRUCTURES: No significant abnormalities. VISUALIZED UPPER ABDOMEN: Normal. OTHER FINDINGS: None. IMPRESSION: Possible infiltrate or consolidation at the left lower lobe/retrocardiac region may represent pneumonia.
[2018-06-03] MEDS ORDERED: Piperacillin/Tazobact 3.375 gm 100 ML IVPB ONE (18:22)
[2018-06-03] MEDS ORDERED: Vancomycin 1 GM 1 GM/250 ML BAG IVPB ONE (18:22)
[2018-06-03 18:25] LABS: BASO % 0.5 % (0.0-2.0); EOS # 0.1 K/uL (0.0-0.7); EOS % 2.4 % (0.0-4.0); HEMOGLOBIN 11.6 g/dL (11.0-16.0); LYMPH # 1.8 K/uL (1.0-4.3); LYMPH % 35.6 % (20.0-40.0); MEAN CELL VOLUME 95.2 fL (81.0-99.0); MEAN CORPUSCULAR HEMOGLOBIN 32.5 pg (27.0-31.0); MEAN CORPUSCULAR HGB CONC 34.1 g/dL (33.0-37.0); MEAN PLATELET VOLUME 8.2 fL (7.2-11.7); MONO # 0.5 K/uL (0.0-0.8); MONO % 9.5 % (0.0-10.0); NEUT # 2.6 K/uL (1.8-7.0); NRBC % 0.1 % (0.0-2.0); RBC 3.57 Mil/uL (3.80-5.20); RED CELL DISTRIBUTION WIDTH 13.8 % (11.5-14.5)
[2018-06-03 18:30] LABS: SQUAMOUS EPITHIAL 26 /hpf (0-5); URINE BACTERIA OCC (<OCC); URINE BILIRUBIN NEGATIVE (NEGATIVE); URINE BLOOD NEGATIVE (NEGATIVE); URINE CLARITY Hazy (Clear); URINE COLOR Yellow (YELLOW); URINE GLUCOSE (UA) NORMAL (Normal); URINE LEUKOCYTE ESTERASE NEG Leu/uL (Negative); URINE PROTEIN 1+ mg/dL (NEGATIVE); URINE UROBILINOGEN NORMAL mg/dL (0.2-1.0)
[2018-06-03 18:31] LABS: VENOUS BLOOD GAS BASE EXCESS 8.2 mmol/L (0.0-2.0); VENOUS BLOOD GAS PCO2 60 mmHg (40-60); VENOUS BLOOD GAS PO2 37 mm/Hg (30-55); VENOUS BLOOD PH 7.38 (7.32-7.43)
[2018-06-03 18:32] LABS: INR 1.2; PROTHROMBIN TIME 12.7 SECONDS (9.7-12.2)
[2018-06-03 18:40] LABS: BLOOD UREA NITROGEN 25 mg/dL (7-17); GFR NON-AFRICAN AMERICAN > 60
[2018-06-03 18:42] LABS: ALB/GLOB RATIO 1.1 (1.0-2.1); ALBUMIN 3.3 g/dL (3.5-5.0); ALT/SGPT 8 U/L (9-52); AST/SGOT 45 U/L (14-36)
[2018-06-03 18:50] LABS: B-TYPE NATRIURETIC PEPTIDE 14400 pg/mL (0-900)
--- NOTE | 2018-06-03 23:00 | HP ---
HISTORY OF PRESENT ILLNESS: This is an 87-year-old female who is a [facility] resident, was brought to the emergency room for lethargy and decreased oral intake and generalized weakness. The patient was evaluated in the emergency room and found to have elevated calcium as well as low magnesium and elevated proBNP. The patient was also short of breath, and chest x-ray was done that showed possible infiltrate or consolidation at the left lower lobe, retrocardiac lesion may represent pneumonia. The patient was admitted for further management. No history can be obtained further from the patient. Other review of system, no history can be obtained from the patient as the patient is not maintaining any conversation. Medications were reviewed as per MAR on order. PAST MEDICAL HISTORY: Hypertension, primary hyperparathyroidism with hypercalcemia, osteoarthritis, dementia. SOCIAL HISTORY: Currently, he is a [facility] patient. MEDICAL HISTORY: As above. FAMILY HISTORY: Not known. PHYSICAL EXAMINATION: GENERAL: The patient is in bed, in mild distress. VITAL SIGNS: Blood pressure 164/63, temperature 99.7, respiratory rate 20, and pulse 67. HEENT: Pupils equal and reactive to light. Normal appearing mucosa of the conjunctivae, oropharynx, and nasal membrane mucosa. NECK: Supple. No JVD. No carotid bruit. No lymph node. No thyromegaly. CHEST AND LUNGS: Bilateral symmetrical expansion. Good air exchange. There are bilateral rales but no rhonchi. CARDIOVASCULAR SYSTEM: PMI not localized. S1, S2. No additional sounds. ABDOMEN: Normoactive bowel sounds. No tenderness. No organomegaly. No masses. EXTREMITIES: No cyanosis, no clubbing, no edema. CENTRAL NERVOUS SYSTEM: The patient is awake but lethargic and not responding well or maintaining any conversation. She also is not following commands. ASSESSMENT: 1. Pneumonia. 2. Toxic metabolic encephalopathy. 3. Hypercalcemia. 4. Hypomagnesemia. PLAN: We will start the patient on IV fluid and supplement electrolytes as well as we will start the patient on IV antibiotics. Check CAT scan of the head. Ti MD Waldemar
[2018-06-03] MEDS: Dextrose 5%/0.9% NS 1,000 ML IV SCH (23:22)
[2018-06-03] MEDS: Magnesium Sulfate 1 gm in D5W 1 GM/100 ML BAG IVPB SCH (23:26)
[2018-06-04] MEDS: Magnesium Sulfate 1 gm in D5W 1 GM/100 ML BAG IVPB SCH (00:24)
[2018-06-04] MEDS: Piperacill/Tazo 2.25gm in Dex 2.25 GM/50 ML BAG IVPB SCH ×4 (01:34→18:02)
--- NOTE | 2018-06-04 09:13 | CT ---
Date of service: 06/03/2018 PROCEDURE: CT HEAD WITHOUT CONTRAST. HISTORY: Altered mental status COMPARISON: 01/31/2018 TECHNIQUE: Axial computed tomography images were obtained through the head/brain without intravenous contrast. Radiation dose: Total exam DLP = 804.53 mGy-cm. This CT exam was performed using one or more of the following dose reduction techniques: Automated exposure control, adjustment of the mA and/or kV according to patient size, and/or use of iterative reconstruction technique. FINDINGS: HEMORRHAGE: No intracranial hemorrhage. BRAIN: No mass effect or edema. Scattered focal lucencies in the subcortical and periventricular white matter suggestive for chronic microvascular ischemic change. Prominent 8 millimeter left basal ganglia lacunar infarct. Diffuse generalized parenchymal atrophy. VENTRICLES: Unremarkable. No hydrocephalus. CALVARIUM: Unremarkable. PARANASAL SINUSES: Unremarkable as visualized. No significant inflammatory changes. MASTOID AIR CELLS: Unremarkable as visualized. No inflammatory changes. OTHER FINDINGS: Intracranial arterial calcifications. IMPRESSION: Chronic microvascular ischemic changes. Left basal ganglia lacunar infarct. Diffuse generalized parenchymal atrophy. If symptoms persists, consider correlation with MRI. A preliminary report was generated at 8:49 p.m. on 06/03/[address] Drew Aceves from [facility].
[2018-06-04] MEDS ORDERED: Albuterol-Ipratrop 3 mg / 0.5 (3 ml) UD INH STA (09:49)
[2018-06-04] MEDS ORDERED: Magnesium Sulfate 1 gm in D5W 1 GM/100 ML BAG IVPB ONE (09:50)
--- NOTE | 2018-06-04 09:50 | PCM.RRT ---
<Darius Lopez - Last Filed: 06/04/18 09:47> SEAMLESS TUBE ROLLER Nurses Assessment - Situation Date: 06/04/18 Time SEAMLESS TUBE ROLLER was called: 09:47 SEAMLESS TUBE ROLLER Responder Arrival Time:: 09:47 SEAMLESS TUBE ROLLER Location:: Med/Surg Room Number: 556a SEAMLESS TUBE ROLLER Reason for Call: O2 Saturation below 90% - Respiratory SEAMLESS TUBE ROLLER Delivery Method: Nasal Cannula @L/min (5L) I.Reason for SEAMLESS TUBE ROLLER - A) Acute Change in Patient: (Select all that apply): Acute change in mental status - Neurological Status (Select all that apply): Responsive. absent: Oriented, Follows Commands, Disoriented - Respiratory Oxygen Delivery Method: Nasal Cannula @L/min (5L) Plan - Assessment of Findings&Treatment Plan hedge fund manager called for pt desat to 87% on 3L NC NC increased to 5L, sat up to 96%, STAT duonebs sat now at 99% f/u stat CXR, cbc, cmp mag, phos, accuchecks q6 PE: GEn: arousable not following commands resp: rhochi bilat card: RRR s1 s2 pos skin: no cyanosis <Beti Hoff V - Last Filed: 06/05/18 23:30> SEAMLESS TUBE ROLLER Nurses Assessment - Vital Signs Vital Signs: Rapid Response Vital Sign Blood Pressure 183/62 Pulse Rate 64 Respiratory Rate 20 Oxygen Saturation 94 - Vital Signs at end of SEAMLESS TUBE ROLLER Vital Signs at end of SEAMLESS TUBE ROLLER: Rapid Response End Vital Sign Blood Pressure 200/75 Pulse Rate 66 Respiratory Rate 20 Temperature 97.6 F O2 Sat by Pulse Oximetry 96 Attending/Attestation - Attestation I have personally seen and examined this patient.: Yes I have fully participated in the care of the patient.: Yes I have reviewed all pertinent clinical information, including history, physical exam and plan: Yes Notes (Text): SEAMLESS TUBE ROLLER called by nurse for mental status change and hypoxia. Patient seen this morning; noted history of dementia, unclear etiology since h&P not available at time of rapid response, patient's oxygen increased at bedside oxygen improved immediately. Patient does not appear in acute distress, intact gag reflex, no accessory muscle use. Patient noted left base rhonchi, chest xray noted for pneumona; patient is on zosyn. labs not available at time of SEAMLESS TUBE ROLLER; ordered. Potassium repleted post SEAMLESS TUBE ROLLER. Patient noted not swallowing food; discussed with PMD for swallow eval and aspiration precautions were added. Patient given NPO unable to receive BP medications; given Lopressor 5mg IVX1 repeat blood pressure stable. Discussed with PMD: Dr. Medeiros upon resolution of SEAMLESS TUBE ROLLER regarding event. Patient stable and remain on floor.
[2018-06-04] MEDS ORDERED: Metoprolol 1 mg/ml Inj IVP STA (10:12)
[2018-06-04 10:41] LABS: ALB/GLOB RATIO 1.2 (1.0-2.1); ALBUMIN 3.5 g/dL (3.5-5.0); ALT/SGPT 12 U/L (9-52); AST/SGOT 34 U/L (14-36); BLOOD UREA NITROGEN 20 mg/dL (7-17); GFR NON-AFRICAN AMERICAN 59
[2018-06-04 10:50] LABS: BASO % 0.4 % (0.0-2.0); EOS # 0.2 K/uL (0.0-0.7); EOS % 4.4 % (0.0-4.0); HEMOGLOBIN 13.3 g/dL (11.0-16.0); LYMPH # 1.7 K/uL (1.0-4.3); LYMPH % 33.3 % (20.0-40.0); MEAN CELL VOLUME 96.9 fL (81.0-99.0); MEAN PLATELET VOLUME 8.3 fL (7.2-11.7); MONO # 0.4 K/uL (0.0-0.8); NEUT # 2.8 K/uL (1.8-7.0); NEUT % 53.9 % (50.0-75.0); NRBC % 0.1 % (0.0-2.0); RBC 4.04 Mil/uL (3.80-5.20); RED CELL DISTRIBUTION WIDTH 13.8 % (11.5-14.5); WHITE BLOOD COUNT 5.2 K/uL (4.8-10.8)
--- NOTE | 2018-06-04 13:30 | RAD ---
Date of service: 06/04/2018 HISTORY: desaturation COMPARISON: 06/03/2018. FINDINGS: LUNGS: No active pulmonary disease. PLEURA: No significant pleural effusion identified, no pneumothorax apparent. CARDIOVASCULAR: No radiographic findings to suggest acute or significant cardiovascular disease. Atherosclerotic calcifications identified primarily aortic arch. OSSEOUS STRUCTURES: No significant abnormalities. VISUALIZED UPPER ABDOMEN: Normal. OTHER FINDINGS: None. IMPRESSION: No active disease. No significant interval change compared to the prior examination(s).
[2018-06-04] MEDS: Albuterol-Ipratrop 3 mg / 0.5 (3 ml) UD INH SCH ×2 (16:18→20:25)
--- NOTE | 2018-06-04 18:20 | CARD ---
APPROVED REPORT Date of service: 06/03/2018 EKG Measurement Heart [id number] <Conclusion> Sinus rhythm with significant artifacts Left axis deviation Left bundle branch block Abnormal ECG
[2018-06-05] MEDS: Piperacill/Tazo 2.25gm in Dex 2.25 GM/50 ML BAG IVPB SCH ×4 (00:56→18:47)
[2018-06-05] MEDS: Albuterol-Ipratrop 3 mg / 0.5 (3 ml) UD INH SCH ×6 (01:21→19:35)
--- NOTE | 2018-06-05 06:47 | PN ---
DATE: 06/04/2018 DAILY PROGRESS NOTE SUBJECTIVE: The patient was WEALTH MANAGEMENT ADVISOR today for desaturation. Chest x-ray did not show any interval change. PHYSICAL EXAMINATION: VITAL SIGNS: Blood pressure 179/66, temperature 97.7, respiratory rate 20 and pulse 57. HEENT: Pupils equal and reactive to light. Normal-appearing mucosa of the conjunctivae, oropharynx and nasal membrane mucosa. NECK: Supple. No JVD. No carotid bruit. No lymph node. No thyromegaly. CHEST AND LUNGS: Bilateral symmetrical expansion. Good air exchange. No rales. No rhonchi. CARDIOVASCULAR SYSTEM: PMI not localized. S1 and S2. No additional sounds. ABDOMEN: Normoactive bowel sounds. No tenderness. No organomegaly. No masses. EXTREMITIES: No cyanosis, no clubbing, no edema. CENTRAL NERVOUS SYSTEM: The patient is awake. She is confused and disoriented to time and place. No lateralization could be appreciated. DIAGNOSTIC DATA: CAT scan of the head showed left basal ganglia infarction. ASSESSMENT: 1. Pneumonia. 2. 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 3. Hypertension. 4. Primary hyperparathyroidism with hypercalcemia. PLAN: Continue current medications and aspirin. We will do carotid Doppler. Neurology consult. Neuro check every 4 hours. Discussed with the patient's son. Grisel Medeiros MD
--- NOTE | 2018-06-05 06:51 | CP.PCM.CON ---
History of Present Illness - History of Present Illness History of Present Illness: CONSULTATION DICTATED BILATERAL CEREBRAL DYSFUNCTION TOXIC/ METABOLIC/ISCHEMIC/DEGENERATION/POST ICTAL HYDRATION STROKE PROPHLAXIS DVT PROPHYLAXIS EEG Past Patient History - Infectious Disease Hx of Infectious Diseases: None - Tetanus Immunizations Tetanus Immunization: Unknown - Past Medical History & Family History Past Medical History?: Yes - Past Social History Smoking Status: Never Smoked - CARDIAC Hx Congestive Heart Failure: Yes Hx Hypercholesterolemia: Yes Hx Hypertension: Yes - PULMONARY Hx Asthma: Yes - NEUROLOGICAL Hx Dementia: Yes Hx Seizures: Yes - HEENT Hx HEENT Problems: Yes Other/Comment: +eyeglasses - RENAL Hx Chronic Kidney Disease: Yes - ENDOCRINE/METABOLIC Hx Endocrine Disorders: No - HEMATOLOGICAL/ONCOLOGICAL Hx Human Immunodeficiency Virus (HIV): No - INTEGUMENTARY Hx Dermatological Problems: No - MUSCULOSKELETAL/RHEUMATOLOGICAL Hx Arthritis: Yes Hx Falls: Yes (fell @ home in the past stated by son) Hx Fractures: Yes Hx Osteoporosis: Yes - GASTROINTESTINAL Hx Gastrointestinal Disorders: No - GENITOURINARY/GYNECOLOGICAL Hx Sexually Transmitted Disorders: No - PSYCHIATRIC Hx Substance Use: No - SURGICAL HISTORY Hx Appendectomy: Yes Hx Cholecystectomy: Yes - ANESTHESIA Hx Anesthesia: Yes Hx Anesthesia Reactions: No Hx Malignant Hyperthermia: No Meds Allergies/Adverse Reactions: Allergies Allergy/AdvReac Type Severity Reaction Status Date / Time No Known Allergies Allergy Verified 06/03/18 17:41 - Medications Medications: Current Medications Acetaminophen (Tylenol 325mg Tab) 650 mg PO Q6 PRN PRN Reason: Pain, moderate (4-7) Albuterol/Ipratropium (Duoneb 3 Mg/0.5 Mg (3 Ml) Ud) 3 ml INH RQ4 COUNTS INCLUDE 234 BEDS AT THE [facility] Last Admin: 06/05/18 05:12 Dose: Not Given Aspirin (Ecotrin) 81 mg PO DAILY COUNTS INCLUDE 234 BEDS AT THE [facility] Last Admin: 06/04/18 11:21 Dose: Not Given Bisoprolol Fumarate (Zebeta) 5 mg PO DAILY COUNTS INCLUDE 234 BEDS AT THE [facility] Last Admin: 06/04/18 11:20 Dose: Not Given Cinacalcet (Sensipar) 60 mg PO DAILY [facility]S INCLUDE 234 BEDS AT THE [facility] Last Admin: 06/04/18 11:20 Dose: Not Given Colchicine (Colocrys) 0.6 mg PO DAILY [facility]S INCLUDE 234 BEDS AT THE [facility] Last Admin: 06/04/18 11:21 Dose: Not Given Donepezil HCl (Aricept) 5 mg PO [facility] Last Admin: 06/04/18 21:07 Dose: 5 mg Escitalopram Oxalate (Lexapro) 10 mg PO DAILY COUNTS INCLUDE 234 BEDS AT THE [facility] Last Admin: 06/04/18 11:20 Dose: Not Given Famotidine (Pepcid) 20 mg PO DAILY COUNTS INCLUDE 234 BEDS AT THE [facility] Last Admin: 06/04/18 11:20 Dose: Not Given Ferrous Sulfate (Feosol) 325 mg PO BID COUNTS INCLUDE 234 BEDS AT THE [facility] Last Admin: 06/04/18 17:43 Dose: 325 mg Furosemide (Lasix) 40 mg IVP DAILY COUNTS INCLUDE 234 BEDS AT THE [facility] Last Admin: 06/04/18 10:35 Dose: 40 mg Heparin Sodium (Porcine) (Heparin) 5,000 units SC Q12 COUNTS INCLUDE 234 BEDS AT THE [facility] Last Admin: 06/04/18 21:07 Dose: 5,000 units Hydralazine HCl (Apresoline) 50 mg PO Q8H COUNTS INCLUDE 234 BEDS AT THE [facility] Last Admin: 06/04/18 22:15 Dose: 50 mg Dextrose/Sodium Chloride (Dextrose 5%/0.9% Ns 1000 Ml) 1,000 mls @ 80 mls/hr IV .[id number] COUNTS INCLUDE 234 BEDS AT THE [facility] Last Admin: 06/03/18 23:22 Dose: 80 mls/hr Piperacillin Sod/Tazobactam Sod (Zosyn 2.25 Gm Iv Premix) 2.25 gm in 50 mls @ 100 mls/hr IVPB Q6H COUNTS INCLUDE 234 BEDS AT THE [facility]; Protocol Last Admin: 06/05/18 06:42 Dose: 100 mls/hr Levetiracetam (Keppra) 500 mg PO BID COUNTS INCLUDE 234 BEDS AT THE [facility] Last Admin: 06/04/18 17:44 Dose: 500 mg Oxybutynin Chloride (Ditropan Xl) 5 mg PO DAILY COUNTS INCLUDE 234 BEDS AT THE [facility] Last Admin: 06/04/18 11:21 Dose: Not Given Pneumococcal Polyvalent Vaccine (Pneumovax 23 Vaccine) 0.5 ml IM .ONCE ONE Stop: 06/06/18 10:01 Rosuvastatin Calcium (Crestor) 10 mg PO [facility] Last Admin: 06/04/18 21:06 Dose: 10 mg Results - Vital Signs Recent Vital Signs: Last Vital Signs Temp 97.5 F L 06/05/18 00:20 Pulse 70 06/05/18 00:20 Resp 18 06/05/18 00:20 BP 161/67 H 06/05/18 00:20 Pulse Ox 93 L 06/05/18 00:20 - Labs Result Diagrams: 06/04/18 10:42 06/04/18 10:13 Labs: Laboratory Results - last 24 hr 06/04/18 06/04/18 06/04/18 09:46 10:13 10:42 WBC 5.2 RBC 4.04 Hgb 13.3 Hct 39.2 MCV 96.9 MCH 33.0 H MCHC 34.0 RDW 13.8 Plt Count 160 MPV 8.3 Neut % (Auto) 53.9 Lymph % (Auto) 33.3 Toole % (Auto) 8.0 Eos % (Auto) 4.4 H Baso % (Auto) 0.4 Neut # (Auto) 2.8 Lymph # (Auto) 1.7 Toole # (Auto) 0.4 Eos # (Auto) 0.2 Baso # (Auto) 0.0 Sodium 140 Potassium 3.2 L Chloride 102 Carbon Dioxide 35 H Anion Gap 7 L BUN 20 H Creatinine 0.9 Est GFR ( Amer) > 60 Est GFR (Non-Af Amer) 59 POC Glucose (mg/dL) 130 H Random Glucose 117 H D Calcium 11.0 H Phosphorus 2.6 Magnesium 1.9 Total Bilirubin 0.8 AST 34 ALT 12 Alkaline Phosphatase 68 Ammonia Total Protein 6.4 Albumin 3.5 Globulin 2.8 Albumin/Globulin Ratio 1.2 Prolactin 06/04/18 06/04/18 06/04/18 11:06 19:41 19:41 WBC RBC Hgb Hct MCV MCH MCHC RDW Plt Count MPV Neut % (Auto) Lymph % (Auto) Toole % (Auto) Eos % (Auto) Baso % (Auto) Neut # (Auto) Lymph # (Auto) Toole # (Auto) Eos # (Auto) Baso # (Auto) Sodium Potassium Chloride Carbon Dioxide Anion Gap BUN Creatinine Est GFR ( Amer) Est GFR (Non-Af Amer) POC Glucose (mg/dL) 122 H Random Glucose Calcium Phosphorus Magnesium Total Bilirubin AST ALT Alkaline Phosphatase Ammonia 12 Total Protein Albumin Globulin Albumin/Globulin Ratio Prolactin 20.1 H
--- NOTE | 2018-06-05 12:44 | VASCLAB ---
Date of service: 06/05/2018 PROCEDURE: Carotid Duplex Exam. HISTORY: CVA COMPARISON: None available. TECHNIQUE: Grayscale and duplex Doppler evaluation of the cervical carotid and vertebral arteries were performed. The common carotid, carotid bifurcations and cervical Internal Carotid Artery (ICA) and proximal External Carotid Artery (ECA) were evaluated. The vertebral arteries were evaluated for gross patency and flow direction. Report prepared by Renaldo Morillo, BS, RVT FINDINGS: RIGHT CAROTID ARTERIES: 1. Common Carotid Artery: No significant focal plaque formation of the right common carotid artery. Maximum Peak Systolic velocity: 80 cm/sec: End-diastolic velocity 9 cm/sec. 2. Carotid Bifurcation: plaque formation. Maximum Peak Systolic velocity: 67 cm/sec: End-diastolic velocity 9 cm/sec. 3. Internal Carotid Artery: Plaque description: 3.1. Proximal Segment: Peak systolic velocity 82 cm/sec: End-diastolic velocity 9 cm/sec - % stenosis 0-15% 3.2. Middle Segment: Peak systolic velocity 88 cm/sec: End-diastolic velocity 15 cm/sec - % stenosis 0-15% 3.3. Distal Segment: Peak systolic velocity 95 cm/sec: End-diastolic velocity 15 cm/sec - % stenosis 0-15% 4. External Carotid Artery: No significant focal plaque formation. Peak systolic velocity 116 cm/sec 5. ICA/CCA Ratio: 1.2 LEFT CAROTID ARTERIES: 1. Common Carotid Artery: No significant focal plaque formation of the left common carotid artery. Maximum Peak Systolic velocity: 88 cm/sec: End-diastolic velocity 7 cm/sec. 2. Carotid Bifurcation: plaque formation. Maximum Peak Systolic velocity: 88 cm/sec: End-diastolic velocity 7 cm/sec. 3. Internal Carotid Artery: Plaque description: 3.1. Proximal Segment: Peak systolic velocity 78 cm/sec: End-diastolic velocity 11 cm/sec - % stenosis 0-15% 3.2. Middle Segment: Peak systolic velocity 46 cm/sec: End-diastolic velocity 6 cm/sec - % stenosis 0-15% 3.3. Distal Segment: Peak systolic velocity 66 cm/sec: End-diastolic velocity 11 cm/sec - % stenosis 0-15% 4. External Carotid Artery: No significant focal plaque formation. Peak systolic velocity 109 cm/sec 5. ICA/CCA Ratio: 1.0 VERTEBRAL ARTERIES: 1. Right Vertebral Artery: The right vertebral artery flow direction is antegrade. 2. Left Vertebral Artery: The left vertebral artery flow direction is antegrade. OTHER FINDINGS: 1. Right Brachial Blood pressure: mmHg. 2. Left Brachial Blood pressure: mmHg. 3. No atherosclerotic calcification present IMPRESSION: RIGHT: Duplex scan does not suggest hemodynamically significant stenosis of the right extracranial carotid arteries. LEFT: Duplex scan does not suggest hemodynamically significant stenosis of the left extracranial carotid arteries.
--- NOTE | 2018-06-05 15:27 | CP.PCM.CON ---
History of Present Illness - History of Present Illness History of Present Illness: Palliative consult requested by Doctor Medeiros for goals of care discussion Patient is a 87 yo [place] resident, admitted with AMS X 2 weeks. per [place] documents, patient was lethargic and was refusing food. Patient has Hx of CVA and CT head on this admission showed no acute findings. Patient was seen by Neurologist Doctor stewart and placed on Kepra 500 mg PO BID. Carrotid Doppler was ordered. results are pending. PMH: dementia. ESRD, HTN Soc. Hx: single, [place] resident, son Stewart lives out of [place] [phone] Fam. Hx: Unknown Review of Systems - Review of Systems All systems: reviewed and no additional remarkable complaints except Review of Systems: ROS unobtainable from patient due to confusion. ROS obtained from nursing. Per nursing patient had no acute events over night. Past Patient History - Infectious Disease Hx of Infectious Diseases: None - Tetanus Immunizations Tetanus Immunization: Unknown - Past Medical History & Family History Past Medical History?: Yes - Past Social History Smoking Status: Never Smoked - CARDIAC Hx Congestive Heart Failure: Yes Hx Hypercholesterolemia: Yes Hx Hypertension: Yes - PULMONARY Hx Asthma: Yes - NEUROLOGICAL Hx Dementia: Yes Hx Seizures: Yes - HEENT Hx HEENT Problems: Yes Other/Comment: +eyeglasses - RENAL Hx Chronic Kidney Disease: Yes - ENDOCRINE/METABOLIC Hx Endocrine Disorders: No - HEMATOLOGICAL/ONCOLOGICAL Hx Human Immunodeficiency Virus (HIV): No - INTEGUMENTARY Hx Dermatological Problems: No - MUSCULOSKELETAL/RHEUMATOLOGICAL Hx Arthritis: Yes Hx Falls: Yes (fell @ home in the past stated by son) Hx Fractures: Yes Hx Osteoporosis: Yes - GASTROINTESTINAL Hx Gastrointestinal Disorders: No - GENITOURINARY/GYNECOLOGICAL Hx Sexually Transmitted Disorders: No - PSYCHIATRIC Hx Substance Use: No - SURGICAL HISTORY Hx Appendectomy: Yes Hx Cholecystectomy: Yes - ANESTHESIA Hx Anesthesia: Yes Hx Anesthesia Reactions: No Hx Malignant Hyperthermia: No Meds Allergies/Adverse Reactions: Allergies Allergy/AdvReac Type Severity Reaction Status Date / Time No Known Allergies Allergy Verified 06/03/18 17:41 - Medications Medications: Current Medications Acetaminophen (Tylenol 325mg Tab) 650 mg PO Q6 PRN PRN Reason: Pain, moderate (4-7) Albuterol/Ipratropium (Duoneb 3 Mg/0.5 Mg (3 Ml) Ud) 3 ml INH RQ4 [facility] Last Admin: 06/05/18 12:00 Dose: 3 ml Aspirin (Ecotrin) 81 mg PO DAILY [facility] Last Admin: 06/05/18 09:38 Dose: 81 mg Bisoprolol Fumarate (Zebeta) 5 mg PO DAILY [facility] Last Admin: 06/05/18 09:43 Dose: 5 mg Cinacalcet (Sensipar) 60 mg PO DAILY [facility] Last Admin: 06/05/18 09:43 Dose: 60 mg Colchicine (Colocrys) 0.6 mg PO DAILY [facility] Last Admin: 06/05/18 09:43 Dose: 0.6 mg Donepezil HCl (Aricept) 5 mg PO HS [facility] Last Admin: 06/04/18 21:07 Dose: 5 mg Escitalopram Oxalate (Lexapro) 10 mg PO DAILY [facility] Last Admin: 06/05/18 09:38 Dose: 10 mg Famotidine (Pepcid) 20 mg PO DAILY [facility] Last Admin: 06/05/18 09:38 Dose: 20 mg Ferrous Sulfate (Feosol) 325 mg PO BID [facility] Last Admin: 06/05/18 09:38 Dose: 325 mg Furosemide (Lasix) 40 mg IVP DAILY [facility] Last Admin: 06/05/18 09:37 Dose: 40 mg Heparin Sodium (Porcine) (Heparin) 5,000 units SC Q12 [facility] Last Admin: 06/05/18 09:37 Dose: 5,000 units Hydralazine HCl (Apresoline) 50 mg PO Q8H [facility] Last Admin: 06/05/18 14:54 Dose: 50 mg Dextrose/Sodium Chloride (Dextrose 5%/0.9% Ns 1000 Ml) 1,000 mls @ 80 mls/hr IV .[id number] [facility] Last Admin: 06/03/18 23:22 Dose: 80 mls/hr Piperacillin Sod/Tazobactam Sod (Zosyn 2.25 Gm Iv Premix) 2.25 gm in 50 mls @ 100 mls/hr IVPB Q6H [facility]; Protocol Last Admin: 06/05/18 14:54 Dose: 100 mls/hr Levetiracetam (Keppra) 500 mg PO BID [facility] Last Admin: 06/05/18 09:37 Dose: 500 mg Oxybutynin Chloride (Ditropan Xl) 5 mg PO DAILY [facility] Last Admin: 06/05/18 10:45 Dose: Not Given Pneumococcal Polyvalent Vaccine (Pneumovax 23 Vaccine) 0.5 ml IM .ONCE ONE Stop: 06/06/18 10:01 Rosuvastatin Calcium (Crestor) 10 mg PO HS [facility] Last Admin: 06/04/18 21:06 Dose: 10 mg Physical Exam - Constitutional Appears: No Acute Distress - Head Exam Head Exam: ATRAUMATIC, NORMAL INSPECTION, NORMOCEPHALIC - Eye Exam Eye Exam: EOMI, Normal appearance, PERRL Pupil Exam: NORMAL ACCOMODATION, PERRL - ENT Exam ENT Exam: Mucous Membranes Moist, Normal Exam - Neck Exam Neck exam: Positive for: Normal Inspection - Respiratory Exam Respiratory Exam: Decreased Breath Sounds, NORMAL BREATHING PATTERN - Cardiovascular Exam Cardiovascular Exam: Tachycardia, +S1, +S2 - GI/Abdominal Exam GI & Abdominal Exam: Normal Bowel Sounds, Soft - Rectal Exam Rectal Exam: Deferred - Extremities Exam Extremities exam: Positive for: normal inspection - Back Exam Back exam: NORMAL INSPECTION - Neurological Exam Neurological exam: Alert, Altered - Psychiatric Exam Psychiatric exam: Flat Affect - Skin Skin Exam: Dry, Intact, Normal Color, Warm Results - Vital Signs Recent Vital Signs: Last Vital Signs Temp 97.9 F 06/05/18 08:09 Pulse 90 06/05/18 08:17 Resp 20 06/05/18 08:09 BP 160/54 H 06/05/18 09:37 Pulse Ox 94 L 06/05/18 08:09 - Labs Result Diagrams: 06/04/18 10:42 06/04/18 10:13 Labs: Laboratory Results - last 24 hr 06/04/18 06/04/18 19:41 19:41 Ammonia 12 Prolactin 20.1 H Assessment & Plan - Assessment and Plan (Free Text) Assessment: Palliative consult There is no Advance Directive on chart, PPS 10% I reviewed all medical records, diagnostic studies, examined patient in the bed Patient is alert, altered, speech not clear, able to fallow simple commends, makes eye contacts. Breathing is normal, diminished breath sounds, no cough, O2Sat 94 % NC HR 188, ST, no chest discomfort noted. Abdomen flat, active bowel sounds, incontinent, tolerates food, needs assistance with feedings. Right hand night monitor stronger than left, patient able to squeeze my hands. Limited active ROM to LEs. No significant single sided weakness noted. BP 160/54, HR 118, afebrile WBC 5.0, Hb 13.3 Meds: kepra 500 mg PO BID Lexapro 10 mg Po daily Goals of care discussed with patient's son Stewart over the phone. He is fully involved in his mother's care. His concern is her comfort. Mr. William wants his mother to return to [place] once Medically stable. Code status discussed. Mr. William stated that in past his mother told him that she wishes " no tubes " placed in her. There is a Living Will indicating DNR/DNI. Mr. Sands will fax me over the copy of it. Assessment * AMS * Generalized weakness * Needs max assistance with ADLs and especially with feedings * Bedridden * Incontinent * Patient unable to make her discomfort/pain known * Patient's son will send the copy of Living Will indicating DNR/DNI Suggestion * Promote safety * Assist with ADLs and feedings * Aspiration precautions * Promote skin integrity * Anticipate and meet patient's needs * DNR/DNI once the copy of living will available * Return to [place] Advance care discussion 30 min. Palliative care will sign off at this time.
--- NOTE | 2018-06-05 15:44 | MRI ---
Date of service: 06/05/2018 PROCEDURE: MRI BRAIN WITHOUT CONTRAST HISTORY: SPEECH TEACHER ISCHEMIC PROCESS - COMPARISON: CT head without contrast from 06/03/2018. TECHNIQUE: Multiplanar, multisequence MR images of the brain were obtained without intravenous contrast enhancement. FINDINGS: HEMORRHAGE: None DWI: No evidence of an acute or early subacute infarction. BRAIN PARENCHYMA: There are severe chronic microangiopathic changes. There is no mass, mass effect or abnormal extra-axial fluid collection. There is no territorial infarction. The midline sagittal structures are normal. VENTRICLES: There is mild age-related global parenchymal volume loss and proportionate enlargement of the ventricles and cortical sulci. There are prominent perivascular spaces in bilateral basal ganglia. CRANIUM: There is normal bone marrow signal pattern. ORBITS: Grossly unremarkable. PARANASAL SINUSES/MASTOIDS: The paranasal sinuses are predominantly clear. Small right and moderate left mastoid effusions. VASCULAR SYSTEM: There are normal signal voids in the larger intracranial arteries. OTHER FINDINGS: There is redemonstration of a chronic mildly displaced fracture at the base of the odontoid process. IMPRESSION: 1. No acute intracranial abnormality. 2. Severe chronic microangiopathic changes and mild age-related global parenchymal volume loss 3. Small right and moderate left mastoid effusions.
--- NOTE | 2018-06-05 17:54 | CON ---
DATE: 06/05/2018 NEUROLOGY CONSULTATION ATTENDING PHYSICIAN: Grisel Medeiros MD LOCATION: The patient is in room number 556, bed A. TIME OF EVALUATION: 6:45 a.m. REASON FOR CONSULTATION: Change in mental status. CHIEF COMPLAINT: The patient was brought in from the [facility] with history of increasing generalized weakness, poor intake, and new change in mental status From a neurologic point of view, I was called to evaluate her for further management. During hospitalization, the patient was found to have electrolyte imbalance and those have been corrected. HISTORY OF PRESENT ILLNESS: Ms. Willian Charles is an 87-year-old Armenian speaking cachectic [facility] resident brought into [facility] with new presentation of letharginess, change in mental status, and poor intake. The patient was found to have some electrolyte imbalance during the hospitalization and was still being corrected. The patient also had rapid response yesterday with change in mental status. No obvious fall from the bed. No obvious witnessed tonic-clonic activities of bowel and bladder incontinence was seen. PAST MEDICAL HISTORY: Hypertension, primary hyperparathyroidism, hypercalcemia, osteoarthritis, dementia and seizures. SOCIAL HISTORY: She is a [facility] patient. PERSONAL HISTORY: Nausea, smoking, and alcohol use as per the documentation. REVIEW OF SYSTEMS: 12-point system being reviewed. From neuro, change in mental status. MEDICATIONS: Hydralazine, Aricept, colchicine, Crestor, Ditropan, albuterol, aspirin, iron supplement, levetiracetam, Lexapro, famotidine, Sensipar, Tylenol and piperacillin. PHYSICAL EXAMINATION: VITAL SIGNS: Blood pressure 161/67, mean arterial pressure of 98, respiratory rate of 18, temperature 97.5 with a pulse rate of 75 and regular. NECK: Voluntary guarding. No bruits. HEART: Heart sounds are regular. CHEST: Fair air entry. EXTREMITIES: Distal as well proximal muscle group atrophy. Increased tone in both upper extremities and lower extremities. MENTAL STATUS EXAMINATION: She is awake, alert, and oriented to person and place. She does not follow any commands. Good eye contact. Speech is spontaneous. CRANIAL NERVE EXAMINATION: Eyes are open. Responds to visual threat. Pupils are reactive to light. Extraocular movements decreased in all direction. No facial sensory deficits. No facial asymmetry. Significant dryness noted in the lips and the mouth including tongue. MOTOR EXAMINATION: Tone increased. Some partial tremor noted in both upper extremities. Deep tendon reflexes are absent. Plantars are upgoing on both sides. SENSORY EXAMINATION: Responds to pain symmetrically on both sides. Coordination and gait deferred at this time. CONCLUSION: On reviewing her history from the records as well as from the patient, the patient seems to have episodic change in mental status. Considering her risk factors and preceding dementia and possible seizures (partial complex) versus new ischemic process in the posterior cerebral artery distribution. However other possible causes including infection, metabolic and degenerative process should be considered. Her workup, CT of the head showed diffuse atrophy and chronic ischemic changes including left basal ganglia infarct, which are all old. EKG normal sinus rhythm. BLOOD WORKUP: WBC 5.8, hemoglobin 13.3, hematocrit 39.2, platelets 160. PT 12.7, INR 1.2, PTT 35. Sodium 140, potassium 3.2, chloride 102, bicarbonate 35, BUN 20, creatinine 0.9. GFR more than 60. Glucose 112. Calcium 11. Urinalysis shows 1+ proteinuria, bacteria is occasional, and hyaline cast noted. RECOMMENDATIONS: 1. Continue stroke prophylaxis. 2. Keep blood pressure, mean arterial pressure around 100. 3. Hydration. 4. MRI of the brain to rule out any new ischemic process. 5. Electroencephalogram to rule out any seizures. 6. Deep venous thrombosis prophylaxis. 7. Appropriate antibiotics per occult infectious process. The patient will be followed closely with you. Kenny Casiano MD [id number]
--- NOTE | 2018-06-05 20:35 | PN ---
DATE: 06/05/2018 SUBJECTIVE: The patient is seen today, 06/05/2018. Her mental status has not changed. The patient is awake but is slow in response and able to move all extremities equally. PHYSICAL EXAMINATION: VITAL SIGNS: Blood pressure is 160/54, temperature 97.9, respiratory rate 20 and pulse 90. HEENT: Pupils equal, reactive to light. Normal-appearing mucosa of the conjunctivae, oropharynx and nasal membrane mucosa. NECK: Supple. No JVD, no carotid bruit. No lymph nodes. No thyromegaly. CHEST AND LUNGS: Bilateral symmetrical expansion. Good air exchange. No rales, no rhonchi. CARDIOVASCULAR: PMI not localized. S1, S2. No additional sounds. ABDOMEN: Normoactive bowel sounds. No tenderness, no organomegaly. No masses. EXTREMITIES: No cyanosis, no clubbing, no edema. CENTRAL NERVOUS SYSTEM: Alert, awake, oriented x1 and moves all extremities equally. ASSESSMENT: 1. Left basal ganglia infarction. 2. Hypertension. 3. Hypercalcemia, secondary to primary hyperparathyroidism. 4. Osteoarthritis. PLAN: Continue current medications and follow recommendations of neurologist. Follow the MRI results, physical therapy. Grisel Medeiros MD
[2018-06-06] MEDS: Albuterol-Ipratrop 3 mg / 0.5 (3 ml) UD INH SCH ×6 (00:36→20:46)
[2018-06-06] MEDS: Piperacill/Tazo 2.25gm in Dex 2.25 GM/50 ML BAG IVPB SCH ×4 (02:00→19:32)
[2018-06-06 07:25] LABS: EOS # 0.1 K/uL (0.0-0.7); EOS % 2.4 % (0.0-4.0); LYMPH # 1.1 K/uL (1.0-4.3); LYMPH % 24.3 % (20.0-40.0); MEAN CELL VOLUME 96.4 fL (81.0-99.0); MEAN CORPUSCULAR HEMOGLOBIN 33.3 pg (27.0-31.0); MEAN CORPUSCULAR HGB CONC 34.6 g/dL (33.0-37.0); MEAN PLATELET VOLUME 8.4 fL (7.2-11.7); MONO # 0.5 K/uL (0.0-0.8); MONO % 10.2 % (0.0-10.0); NEUT # 2.9 K/uL (1.8-7.0); NEUT % 62.1 % (50.0-75.0); RBC 3.59 Mil/uL (3.80-5.20); RED CELL DISTRIBUTION WIDTH 13.8 % (11.5-14.5); WHITE BLOOD COUNT 4.7 K/uL (4.8-10.8)
[2018-06-06] MEDS ORDERED: Nitroglycerin 2% Ointment Foilpak UD TOP ONE (08:15)
[2018-06-06 08:53] LABS: ALB/GLOB RATIO 1.2 (1.0-2.1); ALBUMIN 3.2 g/dL (3.5-5.0); ALT/SGPT < 6 U/L (9-52); AST/SGOT 22 U/L (14-36); BLOOD UREA NITROGEN 21 mg/dL (7-17); CALCIUM 11.4 mg/dl (8.6-10.4); GFR NON-AFRICAN AMERICAN 47
[2018-06-06] MEDS ORDERED: Pneumococcal 23-Valent Vaccine IM ONE (10:00)
--- NOTE | 2018-06-06 15:01 | PN ---
DATE: 06/06/2018 SUBJECTIVE: The patient is seen today, 06/06/2018. The patient is lethargic and she has much slower response compared to the previous day. PHYSICAL EXAMINATION: VITAL SIGNS: Blood pressure 144/78, temperature 98, respiratory rate 18 and pulse 67. HEENT: Pupils equal, reactive to light. Normal-appearing mucosa of the conjunctivae, oropharynx and nasal membrane mucosa. NECK: Supple, no JVD, no carotid bruit. No lymph node. No thyromegaly. CHEST AND LUNGS: Bilateral symmetrical expansion. Good air exchange. No rales, no rhonchi. CARDIOVASCULAR: PMI not localized. S1, S2. No additional sounds. ABDOMEN: Normoactive bowel sounds. No tenderness, no organomegaly. No masses. EXTREMITIES: No cyanosis, no clubbing, no edema. CENTRAL NERVOUS SYSTEM: The patient is lethargic, arousable, open her eye but she is not verbal and withdraws both her lower extremities to painful stimuli. ASSESSMENT: 1. 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 2. Encephalopathy, likely combination of ischemia and underlying infection, urinary tract infection, and pneumonia. 3. Hypertension. 4. Hyperparathyroidism with hypercalcemia. PLAN: Continue current IV antibiotics and follow Neurology recommendations. Guarded prognosis. Grisel Medeiros MD
[2018-06-06] MEDS: Dextrose 5%/0.9% NS 1,000 ML IV SCH (21:42)
[2018-06-07] MEDS: Piperacill/Tazo 2.25gm in Dex 2.25 GM/50 ML BAG IVPB SCH ×3 (01:17→22:16)
[2018-06-07] MEDS: Albuterol-Ipratrop 3 mg / 0.5 (3 ml) UD INH SCH ×6 (01:22→19:34)
[2018-06-07] MEDS: Dextrose 5%/0.9% NS 1,000 ML IV SCH ×2 (03:01→15:03)
[2018-06-07 07:33] LABS: BASO % 1.1 % (0.0-2.0); EOS # 0.2 K/uL (0.0-0.7); HEMOGLOBIN 11.1 g/dL (11.0-16.0); LYMPH # 1.1 K/uL (1.0-4.3); LYMPH % 26.1 % (20.0-40.0); MEAN CELL VOLUME 96.7 fL (81.0-99.0); MEAN CORPUSCULAR HEMOGLOBIN 32.7 pg (27.0-31.0); MEAN CORPUSCULAR HGB CONC 33.9 g/dL (33.0-37.0); MEAN PLATELET VOLUME 8.6 fL (7.2-11.7); MONO # 0.4 K/uL (0.0-0.8); MONO % 10.8 % (0.0-10.0); NEUT # 2.4 K/uL (1.8-7.0); NRBC % 0.1 % (0.0-2.0); RBC 3.39 Mil/uL (3.80-5.20); RED CELL DISTRIBUTION WIDTH 13.8 % (11.5-14.5); WHITE BLOOD COUNT 4.1 K/uL (4.8-10.8)
[2018-06-07 07:51] LABS: ALB/GLOB RATIO 1.2 (1.0-2.1); ALBUMIN 3.4 g/dL (3.5-5.0); ALT/SGPT 9 U/L (9-52); AST/SGOT 42 U/L (14-36); BLOOD UREA NITROGEN 21 mg/dL (7-17); CALCIUM 10.9 mg/dl (8.6-10.4); GFR NON-AFRICAN AMERICAN 52
--- NOTE | 2018-06-07 10:42 | PN ---
DATE: 06/07/2018 TIME OF EVALUATION: 6:55 a.m. NEUROLOGICAL PROBLEM: Change in mental status and increasing letharginess. PHYSICAL EXAMINATION: VITAL SIGNS: Blood pressure 176/66, mean artery pressure of 102, respiratory rate 18, temperature 97.9 with a pulse rate of 67. GENERAL: The patient is not arousable on calling her name. On tactile stimuli and noxious stimuli, the patient opens her eyes. Does not follow any commands. Moves upper extremities and lower extremities on noxious stimuli. Rest of the examination which is unchanged. The patient has not received the Keppra dose yesterday due to her presentation. Advised the Keppra dose can be changed to IV source. The patient also requested to have a repeat electroencephalogram today to rule out any paroxysmal activities. The patient will be followed closely with you. Kenny Casiano MD
--- NOTE | 2018-06-07 21:48 | PN ---
DATE: 06/07/2018 SUBJECTIVE: The patient is seen today 06/07/2018. She is more alert and awake during this time of examination. PHYSICAL EXAMINATION: VITAL SIGNS: Blood pressure 149/68, temperature 97.6, respiratory rate 20, and pulse 69. HEENT: Pupils equal, reactive to light. Normal-appearing mucosa of the conjunctivae, oropharynx and nasal membrane mucosa. NECK: Supple, no JVD, no carotid bruit. No lymph node. No thyromegaly. CHEST AND LUNGS: Bilateral symmetrical expansion. Good air exchange. No rales, no rhonchi. CARDIOVASCULAR SYSTEM: PMI not localized. S1, S2. No additional sounds. ABDOMEN: Normoactive bowel sounds. No tenderness, no organomegaly. No masses. EXTREMITIES: No cyanosis, no clubbing, no edema. CENTRAL NERVOUS SYSTEM: The patient is awake. She is oriented to person but not oriented to place and time. ASSESSMENT: 1. Possible change of mental status, possible seizure with postictal state. 2. Pneumonia. 3. Urinary tract infection. PLAN: Continue antibiotics and continue current medications. Discussed with the patient's son over the phone. Follow Neurology recommendations. Grisel Medeiros MD
[2018-06-08] MEDS: Albuterol-Ipratrop 3 mg / 0.5 (3 ml) UD INH SCH ×4 (00:47→11:01)
[2018-06-08] MEDS: Dextrose 5%/0.9% NS 1,000 ML IV SCH (03:00)
[2018-06-08] MEDS: Piperacill/Tazo 2.25gm in Dex 2.25 GM/50 ML BAG IVPB SCH ×2 (05:25→11:08)
[2018-06-08 08:23] VITALS: BP 173/73; PULSE 85; RESP 18; TEMP 98.2; O2SAT 96
--- NOTE | 2018-06-08 09:06 | PN ---
DATE: 06/08/2018 TIME OF EVALUATION: 07:00 a.m. NEUROLOGICAL PROBLEM: Possible postictal phase. PHYSICAL EXAMINATION: VITAL SIGNS: Blood pressure 162/63, mean arterial pressure 97, respiratory rate 18, temperature 97.8 with pulse rate 77. GENERAL: The patient is somewhat a little bit alert, responds right away on calling her first name. She is not communicable. She moves activities in the upper extremities. HEENT: Extraocular movement, rolling conjugate gaze noted. Pupils reactive to light. Repeat electroencephalogram, which does not show any paroxysmal activities except bilateral slow activities. RECOMMENDATION: Continue the Keppra dose as recommended. Kenny Casiano MD
--- NOTE | 2018-06-08 09:28 | EEG ---
DATE: 06/05/2018 This is a 16-channel electroencephalogram of awake and lethargic adult. During the study, photic stimulation was performed. Hyperventilation was not performed. The resting electroencephalogram consists of reduced low amplitude 5 to 6 Hz theta activities seen in bilateral cortical leads. There is a persistent left and right frontal electrode artifact contaminated the background rhythm. The slow activity is continuously noted. Intermittent high amplitude 3 to 4 Hz delta activities also seen. The photic stimulation did not evoke driving response noted at 2 to 20 Hz. IMPRESSION: This is abnormal electroencephalogram because of persistent slowing throughout the record suggestive of bilateral cerebral dysfunction. However, during the study, neither electroencephalographic paroxysmal activities nor focal slowing noted. Kenny Casiano MD
--- NOTE | 2018-06-08 17:18 | PCM.HF ---
Heart Failure Core Measure - Heart Failure Ejection Fraction: 40 % or Greater (EF >40%) Hydralazine Nitrate Prescribed: Yes Implantable Cardioverter Defibrillator Therapy: No Contraindication/Reason for not providing: EF >405
--- NOTE | 2018-06-08 17:20 | CP.PCM.PN ---
Objective - Vital Signs/Intake and Output Vital Signs (last 24 hours): Temp Pulse Resp BP Pulse Ox 98.2 F 85 18 173/73 H 96 06/08/18 08:22 06/08/18 08:22 06/08/18 08:22 06/08/18 08:22 06/08/18 08:22 Intake and Output: 06/08/18 06/08/18 06:59 18:59 Output Total 100 Balance -100 - Labs Labs: 06/07/18 07:15 06/07/18 07:15 PT 12.7 SECONDS (9.7-12.2) H 06/03/18 18:20 INR 1.2 06/03/18 18:20 APTT 35 SECONDS (21-34) H 06/03/18 18:20 Assessment and Plan - Assessment and Plan (Free Text) Assessment: 87 year old female admitted with pneumonia, lethargy, seen and examined. Alert, awake, eating much better, no sob or chest pains.
[2018-06-08] MEDS ORDERED: levETIRAcetam 100 mg/ml (5ml) Oral Syringe PO SCH (18:00)
--- NOTE | 2018-06-09 05:42 | DS ---
REASON FOR ADMISSION: This is an 87-year-old female with history of multiple medical problems, was admitted for change of mental status and decreased oral intake. The patient was found to have left lower lobe pneumonia, urinary tract infection. She was started on IV antibiotics, and the patient's mental status improved. Then, again she was noted during this hospitalization to have decline in her mental status with severe lethargy. The patient was thought to have a postictal state and she was given Keppra intravenously. The patient became more awake and she was [facility] back to [facility] to continue IV antibiotics. FINAL DIAGNOSES. 1. Change of mental status, likely postictal. 2. Urinary tract infection. 3. Pneumonia. 4. Hypercalcemia. 5. Primary hyperparathyroidism. [facility] MD [facility] # [id number]
== END 2018-06-08 15:23 | disposition home or self-care (01) | DRG 193 ==
LOC: C.ER 17:25 → C.9E 18:35 → C.5S 19:19
PROVIDERS: ADMIT Internal Medicine; ATTEND Internal Medicine
DX: J18.9 Pneumonia, unspecified organism (principal); G92 Toxic encephalopathy; N18.6 End stage renal disease; I13.2 Hypertensive heart and chronic kidney disease with heart failure and with stage 5 chronic kidney disease, or end stage renal disease; R64 Cachexia; N39.0 Urinary tract infection, site not specified; E78.00 Pure hypercholesterolemia, unspecified; E83.42 Hypomagnesemia; G30.9 Alzheimer's disease, unspecified; Z74.01 Bed confinement status; Z66 Do not resuscitate; R09.02 Hypoxemia; Z86.73 Personal history of transient ischemic attack (TIA), and cerebral infarction without residual deficits; Z51.5 Encounter for palliative care; F02.80 Dementia in other diseases classified elsewhere, unspecified severity, without behavioral disturbance, psychotic disturbance, mood disturbance, and anxiety; E83.52 Hypercalcemia; I50.9 Heart failure, unspecified; J45.909 Unspecified asthma, uncomplicated; M81.0 Age-related osteoporosis without current pathological fracture; E87.8 Other disorders of electrolyte and fluid balance, not elsewhere classified; G40.909 Epilepsy, unspecified, not intractable, without status epilepticus